=== PATIENT | female | born 1975 | race Caucasian/White ===

== ENCOUNTER 2017-07-22 15:49 | Emergency (ER) | payer OTHER, SELFPAY ==
--- NOTE | 2017-07-22 15:55 | XR_ITS ---
XR knee LT 3V HISTORY: Posttraumatic pain ITS.REASON: FELL AT HOME ORDERING PHYSICIAN: Sera Ortiz PATIENT AGE: 41 years COMPARISON: None FINDINGS: No fracture or dislocation. No lytic or blastic change. Normal mineralization. No significant arthritic changes evident. No other significant findings IMPRESSION: Negative Knee
--- NOTE | 2017-07-22 15:55 | XR_ITS ---
XR tibia fibula LT 2V CLINICAL INDICATION: Pain following injury ITS.REASON: FELL AT HOME ORDERING PHYSICIAN: Sera Ortiz PATIENT AGE: 41 years COMPARISON: None FINDINGS: Negative, no fracture or dislocation. IMPRESSION: Negative left tib-fib.
[2017-07-22 16:20] VITALS: BP 133/91; PULSE 74; RESP 20; TEMP 36.7; O2SAT 99; BMI 24.0
--- NOTE | 2017-07-22 16:26 | HMH.EDUTC ---
[facility] [place] Disposition Clinical Impression: Knee sprain Qualifiers: Encounter type: initial encounter Involved ligament of knee: other ligament Laterality: left Qualified Code(s): S83.8X2A - Sprain of other specified parts of left knee, initial encounter Contusion of leg Qualifiers: Encounter type: initial encounter Laterality: left Qualified Code(s): S80.12XA - Contusion of left lower leg, initial encounter Disposition: Home, Self-Care Condition on Discharge: Good Instructions: How To Perform RICE (Rest, Ice, Compress, Elevate), Contusion Additional Instructions: *weight bearing as tolerated *RICE, Rest the extremity, Ice 15-20 minutes 3-4 times daily, Compress- wear the brad wrap as discussed as much as possible to help reduce swelling and pain, Elevate the extremity when at rest *Rbad wrap is for support and help control swelling, use it except in the shower. Be sure that is not to tight but not to loose either *Elevate when resting *Ibuprofen 600-800mg every 6-8 hours as needed for pain an inflammation. If need something more can take Tylenol in between doses of Ibuprofen to help Immediately follow up for new or worsening of symptoms, or no noticeable improvement over the next 3-5 days Follow up with family doctor for referral to Orthopedics if warranted Return if needed Prescriptions: Ibuprofen [Ibuprofen 600mg Tab] 600 mg PO Q6H PRN #20 tab PRN Reason: Moderate Pain Referrals: Hermann Boyer APRN [Primary Care Provider] - Time of Disposition: 16:53 Medical Decision Making - Medical Records Medical records reviewed: Yes: I reviewed the patient's medical records. Vital Signs: 07/22/17 16:20 Temperature 98.1 F Temperature Source Temporal Artery Scan Pulse Rate [Right Radial] 74 Respiratory Rate 20 Blood Pressure [Right Arm] 133/91 Blood Pressure Mean [Right Arm] 105 Blood Pressure Source [Right Arm] Automatic Cuff Blood Pressure Position [Right Arm] Sitting 02 Sat by Pulse Oximetry 99 Oxygen Delivery Method Room Air Orders (Tests/Meds): ORDERS Category Date Time Status Knee XR left 3 views [XR knee LT 3V] Stat Exams 07/22/17 15:55 Taken Tibia/fibula XR left 2 views [XR tibia fibula LT 2V] Exams 07/22/17 15:55 Taken Stat - Radiology Data #1 Image Reviewed: Yes I have reviewed radiologist's interpretation, Yes I reviewed the patient's radiology image w/the ED provider Preliminary Findings: No Fracture Seen - Christiano Inquiry Pt receiving controlled substance: No Christiano was queried for this patient: No [facility] [place] HPI - General Stated complaint: AO 07/21/17 Fell inj to left knee Mode of Arrival: Family Vehicle Source of Information: Patient Limitations: No Limitations Description of Symptoms (Recalled from Triage Doc. by RN): PT STATES SHE FELL IN A HOLE AND INJURED HER LEFT KNEE. HEENT Symptoms (Recalled from RN notes): No Resp Symptoms (Recalled from RN notes): No Skin Symptoms (Recalled from RN notes): No MS Symptoms (Recalled from RN notes): Yes (LEFT KNEE) Functional Status (Recalled from RN notes): NA - History of Present Illness Provider Complaint: Patient state that yesterday she was out in the dog lot feeding the dog when she accidently stepped into a hole that the dog had dug on the ground and fell twisting her left leg now having pain in her left leg and knee States that she has not had any bruising just tenderness and pain that shoots up leg behind the knee - Related Data Previous Rx's Medication Instructions Recorded Ibuprofen [Ibuprofen 600mg Tab] 600 mg PO Q6H PRN #20 tab 07/22/17 Allergies Allergy/AdvReac Type Severity Reaction Status Date / Time Iodinated Contrast Media - Allergy Intermediate I-HIVES Verified 07/22/17 16:01 Oral and [IODINATED CONTRAST MEDIA - ORAL AND] iodine [IODINE] Allergy Mild Unverified 05/13/17 14:42 oxytocin [From Pitocin] Allergy Verified 07/22/17 16:19 - Worker's Comp Is this a Worker's Comp case?:
--- NOTE | 2017-07-22 16:38 | ED_ITS ---
[facility] [place] Disposition Clinical Impression: Knee sprain Qualifiers: Encounter type: initial encounter Involved ligament of knee: other ligament Laterality: left Qualified Code(s): S83.8X2A - Sprain of other specified parts of left knee, initial encounter Contusion of leg Qualifiers: Encounter type: initial encounter Laterality: left Qualified Code(s): S80.12XA - Contusion of left lower leg, initial encounter Disposition: Home, Self-Care Condition on Discharge: Good Instructions: How To Perform RICE (Rest, Ice, Compress, Elevate), Contusion Additional Instructions: *weight bearing as tolerated *RICE, Rest the extremity, Ice 15-20 minutes 3-4 times daily, Compress- wear the brad wrap as discussed as much as possible to help reduce swelling and pain, Elevate the extremity when at rest *Brad wrap is for support and help control swelling, use it except in the shower. Be sure that is not to tight but not to loose either *Elevate when resting *Ibuprofen 600-800mg every 6-8 hours as needed for pain an inflammation. If need something more can take Tylenol in between doses of Ibuprofen to help Immediately follow up for new or worsening of symptoms, or no noticeable improvement over the next 3-5 days Follow up with family doctor for referral to Orthopedics if warranted Return if needed Prescriptions: Ibuprofen [Ibuprofen 600mg Tab] 600 mg PO Q6H PRN #20 tab PRN Reason: Moderate Pain Referrals: Hermann Boyer APRN [Primary Care Provider] - Time of Disposition: 16:53 Medical Decision Making - Medical Records Medical records reviewed: Yes: I reviewed the patient's medical records. Vital Signs: 07/22/17 16:20 Temperature 98.1 F Temperature Source Temporal Artery Scan Pulse Rate [Right Radial] 74 Respiratory Rate 20 Blood Pressure [Right Arm] 133/91 Blood Pressure Mean [Right Arm] 105 Blood Pressure Source [Right Arm] Automatic Cuff Blood Pressure Position [Right Arm] Sitting 02 Sat by Pulse Oximetry 99 Oxygen Delivery Method Room Air Orders (Tests/Meds): ORDERS Category Date Time Status Knee XR left 3 views [XR knee LT 3V] Stat Exams 07/22/17 15:55 Taken Tibia/fibula XR left 2 views [XR tibia fibula LT 2V] Exams 07/22/17 15:55 Taken Stat - Radiology Data #1 Image Reviewed: Yes I have reviewed radiologist's interpretation, Yes I reviewed the patient's radiology image w/the ED provider Preliminary Findings: No Fracture Seen - Christiano Inquiry Pt receiving controlled substance: No Christiano was queried for this patient: No [facility] [place] HPI - General Stated complaint: AO 07/21/17 Fell inj to left knee Mode of Arrival: Family Vehicle Source of Information: Patient Limitations: No Limitations Description of Symptoms (Recalled from Triage Doc. by RN): PT STATES SHE FELL IN A HOLE AND INJURED HER LEFT KNEE. HEENT Symptoms (Recalled from RN notes): No Resp Symptoms (Recalled from RN notes): No Skin Symptoms (Recalled from RN notes): No MS Symptoms (Recalled from RN notes): Yes (LEFT KNEE) Functional Status (Recalled from RN notes): NA - History of Present Illness Provider Complaint: Patient state that yesterday she was out in the dog lot feeding the dog when she accidently stepped into a hole that the dog had dug on the ground and fell twisting her left leg now having pain in her left leg and knee States that she has not had any bruising just tenderness and pain that shoots up leg behi
[2017-07-22 16:55] VITALS: BP 130/86; PULSE 76; RESP 20; TEMP 36.9; O2SAT 100
== END 2017-07-22 16:56 | disposition home or self-care (01) ==
PROVIDERS: Emergency Provider Nurse Practitioner; Family Provider Nurse Practitioner Family; PCP Nurse Practitioner Family
DX: S83.92XA Sprain of unspecified site of left knee, initial encounter (principal); S80.12XA Contusion of left lower leg, initial encounter; W17.2XXA Fall into hole, initial encounter; Y93.K1 Activity, walking an animal; Y92.9 Unspecified place or not applicable; F17.210 Nicotine dependence, cigarettes, uncomplicated
CPT/HCPCS: 73562; 73590; 99202

== ENCOUNTER 2017-07-31 16:48 | Emergency (ER) | payer OTHER, SELFPAY ==
[2017-07-31 17:05] VITALS: BP 144/117; PULSE 83; RESP 18; TEMP 36.6; O2SAT 99; BMI 24.0
[2017-07-31 17:18] LABS: Apearance,Urine Clear (Clear); Color,Urine Yellow (Yellow); Glucose,Urine (UA) Negative (Negative); Ketones,Urine Negative (Negative); Protein,Urine Negative (Negative)
[2017-07-31 17:19] LABS: Bilirubin,Urine Negative (Negative); Blood, Urine Trace (Negative); UTC Leukocyte Esterase,Urine Negative (Negative); UTC Nitrate,Urine Negative (Negative); Urobilinogen,Urine 0.2 EU/dl (0.2)
--- NOTE | 2017-07-31 17:49 | HMH.EDUTC ---
[facility] [place] Disposition Clinical Impression: Right flank pain Hematuria Qualifiers: Hematuria type: unspecified type Qualified Code(s): R31.9 - Hematuria, unspecified Disposition: Still a Patient Condition on Discharge: Fair Time of Disposition: 17:57 (ER bed 9) Medical Decision Making Vital Signs: 07/31/17 17:05 Temperature 98 F Temperature Source Temporal Artery Scan Pulse Rate [Brachial] 83 Respiratory Rate 18 Blood Pressure [Right Arm] 144/117 Blood Pressure Mean [Right Arm] 126 Blood Pressure Source [Right Arm] Automatic Cuff Blood Pressure Position [Right Arm] Sitting 02 Sat by Pulse Oximetry 99 Oxygen Delivery Method Room Air - Lab Data Lab results reviewed: Yes: I reviewed the patient's lab results. Lab Results 07/31/17 17:08: Urine Color Yellow, Urine Appearance Clear, Urine pH 6.0, Ur Specific [place] 1.010, Urine Protein Negative, Urine Glucose (UA) Negative, Urine Ketones Negative, Urine Blood Trace, Urine Nitrate Negative, Urine Bilirubin Negative, Urine Urobilinogen 0.2, Ur Leukocyte Esterase Negative - Christiano Inquiry Pt receiving controlled substance: No - Reevaluation(s) Reevaluation #1: Discussed possible differentials and [facility] guidelines. Pt agreeable to transfer to ER to rule out kidney stone [facility] [place] HPI - General Stated complaint: pain right side Time Seen by Provider: 07/31/17 17:49 Mode of Arrival: Ambulatory Source of Information: Patient Limitations: No Limitations Description of Symptoms (Recalled from Triage Doc. by RN): FLANK PAIN RT SIDE SINCE 5 AM THAT GOES AROUND TO ABD HEENT Symptoms (Recalled from RN notes): No Resp Symptoms (Recalled from RN notes): No Skin Symptoms (Recalled from RN notes): No MS Symptoms (Recalled from RN notes): No Functional Status (Recalled from RN notes): NA - History of Present Illness Provider Complaint: c/o right flank pain in my kidney that woke her up at 5am this morning. Has tried to wait it out but pain worse, now 10/10, and radiating into abdomen. Denies hx of kidney stones. Hasn't taken or tried anything for symptoms. No fever - Related Data Home Medications Medication Instructions Recorded Confirmed Estradiol [Estradiol] 2 mg PO DAILY 07/31/17 07/31/17 Allergies Allergy/AdvReac Type Severity Reaction Status Date / Time Iodinated Contrast Media - Allergy Intermediate I-HIVES Verified 07/22/17 16:01 Oral and [IODINATED CONTRAST MEDIA - ORAL AND] iodine [IODINE] Allergy Mild Unverified 05/13/17 14:42 oxytocin [From Pitocin] Allergy Verified 07/22/17 16:19 - Worker's Comp Is this a Worker's Comp case?: No [place] History I have reviewed the patient's past medical history: Yes Medical History: Denies:: Cancer, Diabetes Mellitus Type 1, Diabetes Mellitus Type 2, Hypertension, Kidney Stones, MRSA Other Surgeries: Yes: Appendectomy, Hysterectomy-Total, Other (cholecystectomy, unknown bladder surgery) Amputation: No Fractures: No - Social History Smoking Status: Current every day smoker Tobacco Type: cigarettes Alcohol Intake: never - Psychiatric History Expresses thoughts of harming self/others: None Suicide Plan Description: No Plan ROS Obtained: Yes Systems reviewed as appropriate & no additional complaints - Constitutional Constitutional: Reports as per HPI, Denies body ache, Reports poor appetite - Cardiovascular Cardiovascular: Denies chest pain - Respiratory Respiratory: No dyspnea - Gastrointestinal Gastrointestingal: Reports: as per HPI, nausea. Denies: diarrhea, vomiting - Genitourinary Female Genitourinary: Denies abnormal vaginal bleeding, Denies dysuria, Denies hematuria, Denies urinary frequency, Denies urinary hesitancy, Denies urinary urgency, Denies vaginal discharge, Denies other (change urine characteristics) - Musculoskeletal Musculoskeletal: Reports as per HPI, Denies joint stiffness, Denies limited range of motion - Integumentary/Breasts Skin/Breast: Denie
[2017-07-31 18:02] VITALS: BP 128/93; PULSE 85; RESP 20; TEMP 36.6; O2SAT 97; BMI 24.9
--- NOTE | 2017-07-31 18:09 | CT_ITS ---
CT abdomen pelvis wo con CLINICAL INDICATION: Right flank pain ITS.REASON: possible kidney stone ORDERING PHYSICIAN: Kenan Osullivan PATIENT AGE: 41 years COMPARISON: 04/30/2017 TECHNIQUE: Axial images obtained with sagittal and coronal reformats. PROCEDURE: Oral Contrast: None IV Contrast: None . FINDINGS: Prior cholecystectomy. No focal liver lesion. Minimal prominence of common bile duct unchanged and may be a physiologic response to the previous cholecystectomy. Spleen, adrenal glands, and pancreas are unremarkable. No obstructing renal or ureteral calculi. There is a 2 mm nonobstructing stone in the mid polar region of the left kidney. Prior hysterectomy. Mild thickening of the hepatic flexure and transverse colon and ascending colon which may be due to nondistention. Colitis is an additional consideration. There is an oval isodensity in the left pelvic region along the superior lateral aspect the urinary bladder measuring approximately 17 mm. This could represent a bladder diverticulum versus an ovarian remnant cyst. IMPRESSION: 1. Thickening of the colon which could be due to colitis or nondistention. 2. Nonobstructing left renal calculus. 3. 1.7 cm isodensity left pelvic region which could be due to bladder diverticulum versus ovarian remnant cyst
[2017-07-31 18:30] LABS: Basophils % 0.3 % (0.1-2.0); Eosinophils # 0.2 K/mm3 (0.0-0.4); Eosinophils % 1.3 % (0.1-12.0); Hematocrit 48.2 % (37.0-47.0); Hemoglobin 16.1 g/dL (12.2-16.2); Lymphocytes # 3.4 K/mm3 (0.7-4.5); Lymphocytes % 25.8 K/mm3 (10-50); Mean Corpuscular HGB Conc 33.5 g/dL (31.8-35.4); Mean Corpuscular Hemoglobin 31.2 pg (27.0-31.2); Mean Corpuscular Volume 93.3 fl (81-99); Mean Platelet Volume 8.7 fl (7.4-10.4); Monocytes # 0.7 K/mm3 (0.1-1.0); Monocytes % 5.5 % (1.7-9.3); Neutrophils # 8.8 K/mm3 (1.8-7.8); Neutrophils % 67.2 % (37.0-80.0); Platelet Count 270 K/mm3 (142-424); Red Blood Count 5.17 M/mm3 (4.20-5.40); White Blood Count 13.1 K/mm3 (4.8-10.8)
--- NOTE | 2017-07-31 18:32 | HMH.EDUROGF ---
ED Disposition Clinical Impression: Right flank pain Disposition: Home, Self-Care Condition on Discharge: Good Instructions: DI for Low Back Pain Additional Instructions: Naproxenangela one to two days Prescriptions: Naproxen [EC-Naprosyn] 500 mg PO BID PRN #20 tablet.dr FARR Reason: Pain Per Pt ([facility] Use Only) Referrals: Hermann Boyer APRN [Primary Care Provider] - - Critical Care Critical Care Time: No Attestation: On 07/31/17, the high probability of a clinically significant, sudden or life threatening deterioration of the following system(s) required my full and direct attention, intervention and personal management. The time I documented below is in addition to time spent performing reported procedures but includes the following listed in this critical care notation. Medical Decision Making - Medical Records Medical records reviewed: Yes: I reviewed the patient's medical records. Vital Signs: 07/31/17 17:05 07/31/17 18:02 Temperature 98 F 97.9 F Temperature Source Temporal Artery Scan Oral Pulse Rate [Brachial] 83 85 Respiratory Rate 18 20 Blood Pressure [Right Arm] 144/117 128/93 Blood Pressure Mean [Right Arm] 126 104 Blood Pressure Source [Right Arm] Automatic Cuff Automatic Cuff Blood Pressure Position [Right Arm] Sitting Sitting 02 Sat by Pulse Oximetry 99 97 Oxygen Delivery Method Room Air Room Air - Lab Data Lab results reviewed: Yes: I reviewed the patient's lab results. Lab Results 07/31/17 17:08: Urine Color Yellow, Urine Appearance Clear, Urine pH 6.0, Ur Specific [place] 1.010, Urine Protein Negative, Urine Glucose (UA) Negative, Urine Ketones Negative, Urine Blood Trace, Urine Nitrate Negative, Urine Bilirubin Negative, Urine Urobilinogen 0.2, Ur Leukocyte Esterase Negative 07/31/17 18:10: WBC 13.1 H, RBC 5.17, Hgb 16.1, Hct 48.2 H, MCV 93.3, MCH 31.2, MCHC 33.5, RDW 12.0, Plt Count 270, MPV 8.7, Neut % (Auto) 67.2, Lymph % (Auto) 25.8, [place] % (Auto) 5.5, Eos % (Auto) 1.3, Baso % (Auto) 0.3, Neut # (Auto) 8.8 H, Lymph # (Auto) 3.4, [place] # (Auto) 0.7, Eos # (Auto) 0.2, Baso # (Auto) 0.0 07/31/17 18:10: Sodium 138, Potassium 3.7, Chloride 102, Carbon Dioxide 31, Anion Gap 8.7, BUN 7, Creatinine 0.83, Estimated Creat Clear 93, Estimated GFR 76, Est GFR ( Amer) 92, Glucose 92, Calcium 9.1, Total Bilirubin 0.5, AST 12 L, ALT 25, Alkaline Phosphatase 130 H, Total Protein 8.2, Albumin 3.9, Globulin 4.3 H, Albumin/Globulin Ratio 0.9 L Result diagrams: 07/31/17 18:10 07/31/17 18:10 Orders (Tests/Meds): ORDERS Category Date Time Status CT abdomen pelvis wo con Stat Cat Scan 07/31/17 18:09 Taken - CT Data CT Scan: Abdomen, Pelvis Time Received: 19:16 (neg acute) ED CT Reviewed: Yes: I have reviewed the patient's CT results - Christiano Inquiry Pt receiving controlled substance: No Female Urogenital HPI - General Chief complaint: PAIN Stated complaint: pain right side Time Seen by Provider: 07/31/17 17:49 Mode of Arrival: Ambulatory Source of Information: Patient Limitations: No Limitations Description of Symptoms (Recalled from ER Triage Doc. by RN): FLANK PAIN RT SIDE SINCE 5 AM THAT GOES AROUND TO ABD - History of Present Illness HPI Narrative: Reports positional pain with onset at 5:00 this morning, no hematuria urgency or frequency. No vomiting or diarrhea. She denies any abdominal pain. Sent over from urgent treatment center for further evaluation. Bowel or bladder function. MD Complaint: other (R flank pain) Onset (ago): hour(s) Radiation: non-radiating Severity: mild Duration: now resolved Exacerbating factors: none : no - Related Data Home Medications Medication Instructions Recorded Confirmed Estradiol [Estradiol] 2 mg PO DAILY 07/31/17 07/31/17 Previous Rx's Medication Instructions Recorded Naproxen [EC-Naprosyn] 500 mg PO BID PRN #20 tablet. 07/31/17 Allergies Allergy/AdvReac Type Severity Reaction
[2017-07-31 18:41] LABS: Alanine Aminotransferase 25 U/L (12-78); Albumin Level 3.9 gm/dL (3.4-5.0); Albumin/Globulin Ratio 0.9 (1.1-1.8); Alkaline Phosphatase 130 U/L (46-116); Anion Gap 8.7 mEq/L (5-15); Aspartate Amino Transferase 12 U/L (15-37); Bilirubin,Total 0.5 mg/dL (0.2-1.0); Blood Urea Nitrogen 7 mg/dL (7-18); Calcium 9.1 mg/dL (8.5-10.1); Carbon Dioxide 31 mmol/L (21.0-32.0); Chloride 102 mmol/L (98-107); Creatinine Clearance Estimated 93 mL/min (0-300); Creatinine,Serum 0.83 mg/dL (0.55-1.02); Estimated Glomerular Filt Rate 76 ml/min (>60); GFR (African American) 92 ML/MIN (>60); Globulin 4.3 gm/dl (1.3-3.2); Glucose 92 mg/dL (74-106); Potassium 3.7 mmoL/L (3.5-5.1); Sodium 138 mmol/L (136-145); Total Protein,Serum 8.2 gm/dL (6.4-8.2)
[2017-07-31 19:30] VITALS: BP 119/85; PULSE 68; RESP 20; TEMP 37; O2SAT 100
== END 2017-07-31 19:30 | disposition home or self-care (01) ==
LOC: UTC 16:51 → ER 17:59
PROVIDERS: Emergency Medicine; Emergency Provider Nurse Practitioner Family; Family Provider Nurse Practitioner Family; PCP Nurse Practitioner Family
DX: R10.31 Right lower quadrant pain (principal); F17.210 Nicotine dependence, cigarettes, uncomplicated; Z88.8 Allergy status to other drugs, medicaments and biological substances
CPT/HCPCS: 74176; 80053; 81003; 85025; 99283

== ENCOUNTER → 2017-08-08 14:46 | Outpatient (CLI) | payer OTHER, SELFPAY ==
[2017-08-08 15:03] LABS: Basophils % 0.4 % (0.1-2.0); Eosinophils # 0.1 K/mm3 (0.0-0.4); Eosinophils % 1.4 % (0.1-12.0); Hematocrit 42.2 % (37.0-47.0); Hemoglobin 14.1 g/dL (12.2-16.2); Lymphocytes % 34.3 K/mm3 (10-50); Mean Corpuscular HGB Conc 33.3 g/dL (31.8-35.4); Mean Corpuscular Hemoglobin 31.2 pg (27.0-31.2); Mean Corpuscular Volume 93.7 fl (81-99); Mean Platelet Volume 8.8 fl (7.4-10.4); Monocytes # 0.4 K/mm3 (0.1-1.0); Monocytes % 4.5 % (1.7-9.3); Neutrophils # 5.2 K/mm3 (1.8-7.8); Neutrophils % 59.4 % (37.0-80.0); Platelet Count 250 K/mm3 (142-424); Red Cell Distribution Width 12.1 % (11.5-17.5); White Blood Count 8.7 K/mm3 (4.8-10.8)
[2017-08-08 21:24] LABS: Alanine Aminotransferase 20 U/L (12-78); Albumin Level 3.4 gm/dL (3.4-5.0); Albumin/Globulin Ratio 0.9 (1.1-1.8); Alkaline Phosphatase 110 U/L (46-116); Anion Gap 9.7 mEq/L (5-15); Aspartate Amino Transferase 13 U/L (15-37); Bilirubin,Total 0.2 mg/dL (0.2-1.0); Blood Urea Nitrogen 11 mg/dL (7-18); Carbon Dioxide 29 mmol/L (21.0-32.0); Chloride 106 mmol/L (98-107); Creatinine,Serum 0.77 mg/dL (0.55-1.02); Estimated Glomerular Filt Rate 83 ml/min (>60); GFR (African American) 100 ML/MIN (>60); Globulin 3.9 gm/dl (1.3-3.2); Glucose 91 mg/dL (74-106); Potassium 3.7 mmoL/L (3.5-5.1); Sodium 141 mmol/L (136-145); T4 (Thyroxine) 7.8 ug/dl (4.7-13.3); Thyroid Stimulating Hormone 1.63 uIU/ml (0.358-3.740); Total Protein,Serum 7.3 gm/dL (6.4-8.2)
[2017-08-10 18:50] LABS: Vitamin B12 268 pg/mL (232-1245)
== END ==
PROVIDERS: PCP Nurse Practitioner Family; Visit Provider Nurse Practitioner Family
DX: R61 Generalized hyperhidrosis (principal)
CPT/HCPCS: 36415; 80053; 82607; 84436; 84443; 85025

== ENCOUNTER → 2017-08-22 10:33 | Outpatient (CLI) | payer OTHER, SELFPAY ==
[2017-08-22 11:06] LABS: Chol/HDL Ratio 6.3 (1-3.5); Cholesterol 240 mg/dL (140-200); HDL Cholesterol 38 mg/dL (29-89); LDL Cholesterol 151 mg/dL (0-130); Triglycerides 256 mg/dL (30-200); VLDL Cholesterol 51 mg/dL (0-40)
[2017-08-23 18:39] LABS: Vitamin D 25 Hydroxy 7.1 ng/mL (30.0-100.0)
[2017-08-26 15:38] LABS: H. pylori Breath Test Positive (Negative)
== END ==
PROVIDERS: Visit Provider Nurse Practitioner Family
DX: R61 Generalized hyperhidrosis (principal); R10.9 Unspecified abdominal pain
CPT/HCPCS: 36415; 80061; 82652; 83013

== ENCOUNTER → 2017-11-28 10:52 | Outpatient (CLI) | payer OTHER, SELFPAY ==
[2017-11-28 17:10] LABS: Basophils % 0.4 % (0.1-2.0); Eosinophils # 0.1 K/mm3 (0.0-0.4); Eosinophils % 1.6 % (0.1-12.0); Hemoglobin 14.8 g/dL (12.2-16.2); Lymphocytes % 35.4 K/mm3 (10-50); Mean Corpuscular HGB Conc 32.9 g/dL (31.8-35.4); Mean Corpuscular Hemoglobin 31.1 pg (27.0-31.2); Mean Corpuscular Volume 94.5 fl (81-99); Mean Platelet Volume 9.7 fl (7.4-10.4); Monocytes # 0.5 K/mm3 (0.1-1.0); Monocytes % 5.4 % (1.7-9.3); Neutrophils # 4.8 K/mm3 (1.8-7.8); Neutrophils % 57.1 % (37.0-80.0); Platelet Count 272 K/mm3 (142-424); Red Blood Count 4.76 M/mm3 (4.20-5.40); Red Cell Distribution Width 12.9 % (11.5-17.5); White Blood Count 8.3 K/mm3 (4.8-10.8)
[2017-11-28 18:53] LABS: Alanine Aminotransferase 25 U/L (12-78); Albumin Level 3.8 gm/dL (3.4-5.0); Albumin/Globulin Ratio 1.1 (1.1-1.8); Alkaline Phosphatase 135 U/L (46-116); Bilirubin,Total 0.5 mg/dL (0.2-1.0); Blood Urea Nitrogen 9 mg/dL (7-18); Calcium 9.6 mg/dL (8.5-10.1); Carbon Dioxide 29 mmol/L (21.0-32.0); Chloride 104 mmol/L (98-107); Chol/HDL Ratio 8.4 (1-3.5); Cholesterol 235 mg/dL (140-200); Creatinine,Serum 0.73 mg/dL (0.55-1.02); Estimated Glomerular Filt Rate 87 ml/min (>60); GFR (African American) 106 ML/MIN (>60); Globulin 3.5 gm/dl (1.3-3.2); HDL Cholesterol 28 mg/dL (29-89); Potassium 3.9 mmoL/L (3.5-5.1); T4 (Thyroxine) 8.4 ug/dl (4.7-13.3); Thyroid Stimulating Hormone 1.05 uIU/ml (0.358-3.740); Total Protein,Serum 7.3 gm/dL (6.4-8.2)
[2017-11-28 19:22] LABS: Anion Gap 8.9 mEq/L (5-15); Aspartate Amino Transferase 21 U/L (15-37); Sodium 138 mmol/L (136-145)
[2017-11-28 19:28] LABS: Glucose 97 mg/dL (74-106)
[2017-11-28 19:29] LABS: Triglycerides 538 mg/dL (30-200)
[2017-12-01 12:31] LABS: Vitamin D 25 Hydroxy 20.1 ng/mL (30.0-100.0)
== END ==
PROVIDERS: Visit Provider Nurse Practitioner Family
DX: E78.5 Hyperlipidemia, unspecified (principal); E55.9 Vitamin D deficiency, unspecified; R53.83 Other fatigue
CPT/HCPCS: 80053; 80061; 82652; 84436; 84443; 85025

== ENCOUNTER → 2018-03-20 15:03 | Outpatient (CLI) | payer OTHER, SELFPAY ==
--- NOTE | 2018-03-20 15:05 | MM_ITS ---
MM Dig screening mamm BI w/CAD CAD Screening COMPARISON: Digital mammograms with CAD 03/19/2017 and 02/17/2015 INDICATION: There is a history of breast cancer in patient's mother diagnosed after menopause. TECHNIQUE: Standard CC and MLO images were obtained. R2 CAD reviewed. FINDINGS: Scattered fibroglandular densities are seen throughout both breasts. Findings of the lateral symmetrical. There is no suspicious lesion and there are no suspicious microcalcifications. IMPRESSION: Fibrofatty parenchyma with no suspicious lesion seen BI-RADS Category: 1 Negative RECOMMENDED FOLLOW-UP: 1YR - 1 YEAR FOLLOW-UP (A letter has been sent to the patient regarding results of the study.)
== END ==
PROVIDERS: PCP Nurse Practitioner Family; Visit Provider Obstetrics & Gynecology
DX: Z12.31 Encounter for screening mammogram for malignant neoplasm of breast (principal)
CPT/HCPCS: 77067

== ENCOUNTER → 2018-07-03 13:11 | Outpatient (CLI) | payer OTHER, SELFPAY ==
[2018-07-03 13:49] LABS: Chol/HDL Ratio 3.9 (1-3.5); Cholesterol 173 mg/dL (140-200); HDL Cholesterol 44 mg/dL (29-89); LDL Cholesterol 90 mg/dL (0-130); Triglycerides 194 mg/dL (30-200); VLDL Cholesterol 39 mg/dL (0-40)
[2018-07-06 08:37] LABS: Vitamin D 25 Hydroxy 13.6 ng/mL (30.0-100.0)
== END ==
PROVIDERS: Visit Provider Nurse Practitioner Family
DX: E78.5 Hyperlipidemia, unspecified (principal); E55.9 Vitamin D deficiency, unspecified
CPT/HCPCS: 80061; 82652

== ENCOUNTER → 2018-07-07 13:50 | Outpatient (CLI) | payer OTHER, SELFPAY | PROVIDERS: Visit Provider Nurse Practitioner Family | DX: R06.02 Shortness of breath (principal) ==

== ENCOUNTER → 2018-07-07 14:50 | Outpatient (CLI) | payer OTHER, SELFPAY ==
--- NOTE | 2018-07-07 15:00 | XR_ITS ---
XR chest 2V HISTORY: ITS.REASON: SOB ORDERING PHYSICIAN: Christian Bullock PATIENT AGE: 42 years COMPARISON: 05/05/2018 FINDINGS: The cardiomediastinal silhouette and pulmonary vascularity are within normal limits. The lungs are clear without infiltrates, suspicious nodules, or pleural effusions. Calcified granuloma is present in the left apex No acute bony abnormalities. IMPRESSION: Negative chest, no acute finding
== END ==
PROVIDERS: PCP Emergency Medicine; Visit Provider Nurse Practitioner Family
DX: R06.02 Shortness of breath (principal)
CPT/HCPCS: 71046; 87086

== ENCOUNTER → 2018-07-10 07:06 | Outpatient (CLI) | payer OTHER, SELFPAY ==
--- NOTE | 2018-07-10 07:09 | CT_ITS ---
CT abdomen pelvis wo con CLINICAL INDICATION: Hematuria with right flank pain ITS.REASON: Right Flank Pain ORDERING PHYSICIAN: Christian Bullock PATIENT AGE: 42 years COMPARISON: 07/31/2017 TECHNIQUE: Axial images obtained with sagittal and coronal reformats. All CT scans at the facility use one or more dose reduction, viz: automated exposure control, ma/kV adjustment per patient size (including targeted exams where dose is matched to indication, i.e. head), or iterative reconstruction technique. PROCEDURE: Oral Contrast: None IV Contrast: None . FINDINGS: Lower thorax: No acute finding Postcholecystectomy change. The liver, spleen, adrenal glands and pancreas have an unremarkable unenhanced CT appearance. No obstructing renal or ureteral calculi are evident. There is a nonobstructing 2 mm stone in the lower pole the left kidney. No hydronephrosis. There is mild concentric thickening of the urinary bladder. This is nonspecific possibly due to nondistention or cystitis. Post hysterectomy changes. No evidence of appendicitis or diverticulitis. No intestinal obstruction or free air. There is a tiny umbilical hernia which contains fat. There is mild thickening versus nondistention of the descending colon. No acute bony findings. IMPRESSION: 1. Nonobstructing left renal calculus. No hydronephrosis or ureteral calculi. 2. Thickening of the urinary bladder wall which could be due to nondistention or cystitis. 3. Mild thickening of the descending colon which could be due to nondistention or colitis
== END ==
PROVIDERS: PCP Nurse Practitioner Family; Visit Provider Nurse Practitioner Family
DX: R10.9 Unspecified abdominal pain (principal)
CPT/HCPCS: 74176

== ENCOUNTER → 2018-07-14 13:03 | Outpatient (CLI) | payer OTHER, SELFPAY ==
[2018-07-14 14:30] VITALS: PULSE 55; PULSE 60
== END ==
PROVIDERS: PCP Nurse Practitioner Family; Visit Provider Nurse Practitioner Family
DX: R06.02 Shortness of breath (principal)
CPT/HCPCS: 94060; 94640

== ENCOUNTER → 2018-07-27 08:42 | Outpatient (CLI) | payer OTHER, SELFPAY ==
--- NOTE | 2018-07-27 08:44 | US_ITS ---
US abdomen complete HISTORY: ITS.REASON: R side abd pain ORDERING PHYSICIAN: Christian Bullock PATIENT AGE: 42 years COMPARISON: None FINDINGS: PANCREAS:Unremarkable. No obvious mass or abnormal fluid collection. No ductal dilatation LIVER:No focal liver lesions demonstrated. Homogeneous echogenicity. No intrahepatic biliary ductal dilatation evident RIGHT KIDNEY:Unremarkable. Normal size and echogenicity. No hydronephrosis LEFT KIDNEY:Unremarkable. No hydronephrosis. Normal size and echogenicity. GALLBLADDER:Post cholecystectomy. Common bile duct is within normal limits at 6 mm. AORTA:No evidence of aneurysmal dilatation. SPLEEN:Unremarkable. Normal size and echogenicity ASCITES:None demonstrated. IMPRESSION: Prior cholecystectomy otherwise negative abdominal ultrasound
== END ==
PROVIDERS: PCP Nurse Practitioner Family; Visit Provider Nurse Practitioner Family
DX: R10.9 Unspecified abdominal pain (principal)
CPT/HCPCS: 76700

== ENCOUNTER → 2018-11-04 17:50 | Outpatient (CLI) | payer OTHER, SELFPAY ==
[2018-11-06 17:52] LABS: Vitamin D 25 Hydroxy 18.8 ng/mL (30.0-100.0)
== END ==
PROVIDERS: Visit Provider Nurse Practitioner Family
DX: E55.9 Vitamin D deficiency, unspecified (principal)
CPT/HCPCS: 82652

== ENCOUNTER → 2018-12-14 14:49 | Outpatient (CLI) | payer OTHER, SELFPAY ==
[2018-12-14 15:06] LABS: Basophils % 0.3 % (0.1-2.0); Eosinophils # 0.2 K/mm3 (0.0-0.4); Eosinophils % 1.9 % (0.1-12.0); Hematocrit 39.9 % (37.0-47.0); Hemoglobin 13.3 g/dL (12.2-16.2); Lymphocytes # 2.6 K/mm3 (0.7-4.5); Lymphocytes % 32.9 % (10-50); Mean Corpuscular HGB Conc 33.3 g/dL (31.8-35.4); Mean Corpuscular Hemoglobin 29.9 pg (27.0-31.2); Mean Corpuscular Volume 89.6 fl (81-99); Mean Platelet Volume 8.8 fl (7.4-10.4); Monocytes # 0.4 K/mm3 (0.1-1.0); Monocytes % 4.5 % (1.7-9.3); Neutrophils # 4.8 K/mm3 (1.8-7.8); Neutrophils % 60.3 % (37.0-80.0); Platelet Count 237 K/mm3 (142-424); Red Blood Count 4.45 M/mm3 (4.20-5.40); Red Cell Distribution Width 12.7 % (11.5-17.5)
[2018-12-14 16:23] LABS: Anion Gap 10.6 mEq/L (5-15); Blood Urea Nitrogen 7 mg/dL (7-18); Calcium 8.9 mg/dL (8.5-10.1); Carbon Dioxide 30 mmol/L (21.0-32.0); Chloride 104 mmol/L (98-107); Creatinine,Serum 0.84 mg/dL (0.55-1.02); Estimated Glomerular Filt Rate 74 ml/min (>60); GFR (African American) 90 ML/MIN (>60); Glucose 94 mg/dL (74-106); Potassium 3.6 mmoL/L (3.5-5.1); Sodium 141 mmol/L (136-145)
== END ==
PROVIDERS: Visit Provider Otolaryngology
DX: Z01.818 Encounter for other preprocedural examination (principal); R13.10 Dysphagia, unspecified
CPT/HCPCS: 36415; 80048; 85025; 93005

== ENCOUNTER → 2019-01-08 17:13 | Outpatient (CLI) | payer OTHER, SELFPAY ==
[2019-01-08 18:25] LABS: Basophils % 0.3 % (0.1-2.0); Eosinophils # 0.1 K/mm3 (0.0-0.4); Eosinophils % 1.2 % (0.1-12.0); Hematocrit 40.6 % (37.0-47.0); Hemoglobin 13.6 g/dL (12.2-16.2); Lymphocytes # 2.8 K/mm3 (0.7-4.5); Mean Corpuscular HGB Conc 33.4 g/dL (31.8-35.4); Mean Corpuscular Hemoglobin 31.2 pg (27.0-31.2); Mean Corpuscular Volume 93.5 fl (81-99); Mean Platelet Volume 9.3 fl (7.4-10.4); Monocytes # 0.4 K/mm3 (0.1-1.0); Monocytes % 4.3 % (1.7-9.3); Neutrophils # 5.6 K/mm3 (1.8-7.8); Neutrophils % 63.2 % (37.0-80.0); Platelet Count 279 K/mm3 (142-424); Red Blood Count 4.35 M/mm3 (4.20-5.40); Red Cell Distribution Width 12.8 % (11.5-17.5); White Blood Count 8.9 K/mm3 (4.8-10.8)
[2019-01-08 18:51] LABS: Alanine Aminotransferase 20 U/L (12-78); Albumin Level 3.4 gm/dL (3.4-5.0); Alkaline Phosphatase 96 U/L (46-116); Anion Gap 14.1 mEq/L (5-15); Aspartate Amino Transferase 9 U/L (15-37); Bilirubin,Total 0.4 mg/dL (0.2-1.0); Blood Urea Nitrogen 8 mg/dL (7-18); Calcium 9.1 mg/dL (8.5-10.1); Carbon Dioxide 26 mmol/L (21.0-32.0); Chloride 105 mmol/L (98-107); Chol/HDL Ratio 8.5 (1-3.5); Cholesterol 220 mg/dL (140-200); Creatinine,Serum 0.84 mg/dL (0.55-1.02); Estimated Glomerular Filt Rate 74 ml/min (>60); Free T4 (Free Thyroxine) 0.93 ng/dl (0.76-1.46); GFR (African American) 90 ML/MIN (>60); Globulin 3.4 gm/dl (1.3-3.2); Glucose 99 mg/dL (74-106); HDL Cholesterol 26 mg/dL (29-89); Potassium 3.1 mmoL/L (3.5-5.1); Sodium 142 mmol/L (136-145); Thyroid Stimulating Hormone 1.19 uIU/ml (0.358-3.740); Total Protein,Serum 6.8 gm/dL (6.4-8.2)
[2019-01-08 18:52] LABS: Triglycerides 481 mg/dL (30-200)
[2019-01-08 20:15] LABS: Hemoglobin A1C 5.7 % (0.0-7.0)
[2019-01-10 16:37] LABS: Thyroid Peroxidase Antibodies 16 IU/mL (0-34)
[2019-01-11 10:26] LABS: Vitamin D 25 Hydroxy 15.4 ng/mL (30.0-100.0)
== END ==
PROVIDERS: Visit Provider Nurse Practitioner Family
DX: E11.9 Type 2 diabetes mellitus without complications (principal); E55.9 Vitamin D deficiency, unspecified; E78.5 Hyperlipidemia, unspecified; R61 Generalized hyperhidrosis; R68.89 Other general symptoms and signs; R53.83 Other fatigue; D72.829 Elevated white blood cell count, unspecified; E03.9 Hypothyroidism, unspecified
CPT/HCPCS: 80053; 80061; 82652; 83036; 84439; 84443; 85025; 86376

== ENCOUNTER → 2019-01-19 07:32 | Outpatient (CLI) | payer OTHER, SELFPAY ==
[2019-01-19 09:04] LABS: Blood Urea Nitrogen 10 mg/dL (7-18); Calcium 9.2 mg/dL (8.5-10.1); Carbon Dioxide 28 mmol/L (21.0-32.0); Chloride 103 mmol/L (98-107); Creatinine,Serum 0.83 mg/dL (0.55-1.02); Estimated Glomerular Filt Rate 75 ml/min (>60); GFR (African American) 91 ML/MIN (>60); Glucose 108 mg/dL (74-106); Sodium 141 mmol/L (136-145)
== END ==
PROVIDERS: Visit Provider Nurse Practitioner Family
DX: E87.6 Hypokalemia (principal)
CPT/HCPCS: 36415; 80048

== ENCOUNTER → 2019-03-26 08:10 | Outpatient (CLI) | payer OTHER, SELFPAY ==
--- NOTE | 2019-03-26 08:12 | MM_ITS ---
PROCEDURE: MM DIG SCREENING MAMM BI W/CAD CLINICAL INDICATION: screening There is a history of breast cancer patient's mother diagnosed after menopause. COMPARISON: [facility] DIG MAMM-SCREEN EMANUEL from 02/17/2015 [facility] DIG MAMM-SCREEN [facility]UEL W/CAD from 03/19/2017 [facility] MM Dig screening mamm BI w/CAD from 03/20/2018 TECHNIQUE: Standard CC and MLO images were obtained. R2 CAD reviewed. FINDINGS: Mild to moderate scattered fibroglandular densities are seen throughout both breasts. There is a stable low-lying node left axilla. There is no suspicious lesion and no suspicious microcalcifications. IMPRESSION: Fibrofatty parenchyma with no suspicious lesions seen BI-RAD Category: 1 Negative FOLLOW-UP: 1YR 1 Year Follow-up (A letter has been sent to the patient regarding results of the study.) Dictated by: Dr. Fercho Bentley MD 03/29/2019 09:[address] Fercho Bentley MD in [place] 03/29/2019 09:47
== END ==
PROVIDERS: PCP Nurse Practitioner Family; Visit Provider Obstetrics & Gynecology
DX: Z12.31 Encounter for screening mammogram for malignant neoplasm of breast (principal)
CPT/HCPCS: 77067

== ENCOUNTER → 2019-03-31 16:57 | Outpatient (CLI) | payer OTHER, SELFPAY ==
[2019-03-31 17:39] LABS: Basophils % 0.4 % (0.1-2.0); Eosinophils # 0.1 K/mm3 (0.0-0.4); Eosinophils % 1.1 % (0.1-12.0); Hemoglobin 14.2 g/dL (12.2-16.2); Lymphocytes # 3.2 K/mm3 (0.7-4.5); Lymphocytes % 36.4 % (10-50); Mean Corpuscular HGB Conc 33.1 g/dL (31.8-35.4); Mean Corpuscular Hemoglobin 32.3 pg (27.0-31.2); Mean Corpuscular Volume 97.8 fl (81-99); Mean Platelet Volume 8.9 fl (7.4-10.4); Monocytes # 0.4 K/mm3 (0.1-1.0); Monocytes % 4.3 % (1.7-9.3); Neutrophils % 57.7 % (37.0-80.0); Platelet Count 251 K/mm3 (142-424); Red Cell Distribution Width 12.6 % (11.5-17.5); White Blood Count 8.6 K/mm3 (4.8-10.8)
[2019-03-31 18:56] LABS: Alanine Aminotransferase 19 U/L (12-78); Albumin Level 3.6 gm/dL (3.4-5.0); Albumin/Globulin Ratio 1.1 (1.1-1.8); Alkaline Phosphatase 95 U/L (46-116); Anion Gap 12.5 mEq/L (5-15); Bilirubin,Total 0.3 mg/dL (0.2-1.0); Blood Urea Nitrogen 6 mg/dL (7-18); Calcium 9.2 mg/dL (8.5-10.1); Carbon Dioxide 25 mmol/L (21.0-32.0); Chloride 104 mmol/L (98-107); Creatinine,Serum 0.83 mg/dL (0.55-1.02); Estimated Glomerular Filt Rate 75 ml/min (>60); GFR (African American) 91 ML/MIN (>60); Globulin 3.3 gm/dl (1.3-3.2); Glucose 130 mg/dL (74-106); Sodium 138 mmol/L (136-145); Total Protein,Serum 6.9 gm/dL (6.4-8.2)
[2019-03-31 18:57] LABS: Aspartate Amino Transferase 15 U/L (15-37); Potassium 3.5 mmoL/L (3.5-5.1)
== END ==
PROVIDERS: Visit Provider Nurse Practitioner Family
DX: R35.0 Frequency of micturition (principal); R31.9 Hematuria, unspecified
CPT/HCPCS: 36415; 80053; 85025

== ENCOUNTER → 2019-04-02 08:29 | Outpatient (CLI) | payer OTHER, SELFPAY ==
[2019-04-02 09:14] LABS: Creatinine,Serum 0.74 mg/dL (0.55-1.02)
[2019-04-02 09:30] LABS: Creatinine,Urine Random 45 mg/dL (20-320)
[2019-04-02 09:37] LABS: Collection Time,Urine 24 hours; Creatinine 24 Hour,Urine 675 mg/24hr (630-2500); Creatinine Clearance Urine 63.3 mL/min (25-115); Total Volume,Urine 1500 mL (600-1600)
== END ==
PROVIDERS: Visit Provider Nurse Practitioner Family
DX: R31.9 Hematuria, unspecified (principal); R35.0 Frequency of micturition
CPT/HCPCS: 36415; 82575

== ENCOUNTER → 2019-07-22 15:57 | Outpatient (CLI) | payer OTHER, SELFPAY ==
[2019-07-22 16:52] LABS: Basophils # 0.1 K/mm3 (0-0.2); Basophils % 0.5 % (0.1-2.0); Eosinophils # 0.1 K/mm3 (0.0-0.4); Eosinophils % 1.4 % (0.1-12.0); Hematocrit 40.8 % (37.0-47.0); Lymphocytes # 3.2 K/mm3 (0.7-4.5); Lymphocytes % 33.7 % (10-50); Mean Corpuscular HGB Conc 34.3 g/dL (31.8-35.4); Mean Corpuscular Hemoglobin 31.5 pg (27.0-31.2); Mean Corpuscular Volume 91.8 fl (81-99); Mean Platelet Volume 8.5 fl (7.4-10.4); Monocytes # 0.4 K/mm3 (0.1-1.0); Monocytes % 4.3 % (1.7-9.3); Neutrophils # 5.8 K/mm3 (1.8-7.8); Neutrophils % 60.2 % (37.0-80.0); Platelet Count 277 K/mm3 (142-424); Red Blood Count 4.44 M/mm3 (4.20-5.40); Red Cell Distribution Width 12.5 % (11.5-17.5); White Blood Count 9.6 K/mm3 (4.8-10.8)
[2019-07-22 17:44] LABS: Alanine Aminotransferase 14 U/L (12-78); Albumin Level 4.3 g/dl (3.5-5.0); Albumin/Globulin Ratio 1.5 (1.1-1.8); Alkaline Phosphatase 88 U/L (38-126); Anion Gap 9.2 mEq/L (5-15); Aspartate Amino Transferase 21 U/L (14-36); Bilirubin,Total 0.5 mg/dl (0.2-1.3); Blood Urea Nitrogen 10 mg/dl (7-17); Carbon Dioxide 30 mmol/L (22.0-30.0); Chloride 103 mmol/L (98-107); Chol/HDL Ratio 8.1 (1-3.5); Cholesterol 234 mg/dl (140-200); Estimated Glomerular Filt Rate 91 ml/min (>60); GFR (African American) 111 ML/MIN (>60); Globulin 2.8 g/dL (1.3-3.2); Glucose 90 mg/dl (74-100); HDL Cholesterol 29 mg/dl (40-60); Potassium 4.2 mmoL/L (3.5-5.1); Sodium 138 mmol/L (136-145); Total Protein,Serum 7.1 g/dl (6.3-8.2)
[2019-07-22 17:45] LABS: Triglycerides 436 mg/dl (30-150)
[2019-07-24 08:31] LABS: Vitamin D 25 Hydroxy 9.1 ng/mL (30.0-100.0)
== END ==
PROVIDERS: Visit Provider Nurse Practitioner Family
DX: E55.9 Vitamin D deficiency, unspecified (principal); E78.5 Hyperlipidemia, unspecified
CPT/HCPCS: 36415; 80053; 80061; 82652; 85025

== ENCOUNTER → 2019-07-26 16:50 | Outpatient (CLI) | payer OTHER, SELFPAY ==
[2019-07-26 20:44] LABS: Hemoglobin A1C 5.6 % (4.0-6.0)
== END ==
PROVIDERS: Visit Provider Nurse Practitioner Family
DX: E78.2 Mixed hyperlipidemia (principal)
CPT/HCPCS: 36415; 83036

== ENCOUNTER → 2019-07-27 16:39 | Outpatient (CLI) | payer OTHER, SELFPAY ==
[2019-07-29 16:11] LABS: Calcium, Ionized 5.4 mg/dL (4.5-5.6)
[2019-07-30 08:57] LABS: Parathyroid Hormone Intact 46 pg/mL (15-65)
== END ==
PROVIDERS: Visit Provider Physician Assistant
DX: E55.9 Vitamin D deficiency, unspecified (principal)
CPT/HCPCS: 36415; 82330; 83970

== ENCOUNTER → 2019-09-29 10:15 | Outpatient (CLI) | payer OTHER, SELFPAY ==
[2019-09-29 08:54] VITALS: BMI 25.5
[2019-09-30 15:10] LABS: Covid-19 Nasal PCR Sendout Lex NOT DETECTED
== END ==
PROVIDERS: Visit Provider Internal Medicine Gastroenterology
DX: Z03.818 Encounter for observation for suspected exposure to other biological agents ruled out (principal)
CPT/HCPCS: U0003

== ENCOUNTER 2019-10-01 09:34 | Day surgery (SDC) | payer OTHER, SELFPAY ==
--- NOTE | 2019-09-28 11:30 | SUR.PREOP ---
09/28/19--PHONE CALL MADE TO PATIENT. PATIENT UNDERSTANDS THAT LAB WORK AND COVID TESTING NEEDS TO BE COMPLETED @ 1000 ON 09/29/19. PATIENT UNDERSTANDS IF LAB WORK AND COVID-19 TESTS ARE NOT COMPLETED BY 12PM ON THAT DATE, THE SURGERY SCHEDULED WILL BE CANCELLED AND RESCHEDULED FOR ANOTHER TIME.
[2019-10-01] VITALS (7 sets, daily range): BP systolic 109–155; BP diastolic 69–93; PULSE 59–70; RESP 16–18; TEMP 36.2–37; O2SAT 95–99; BMI 25.5
--- NOTE | 2019-10-01 11:36 | P.PN_ITS ---
[facility] Anesthesia Checklist - Structural Data Admitted From: Home Planned Operative Procedure/s: egd Consent for Planned Operative Procedure(s) Verified: Yes - Additional verifications Anesthesia Reactions: Yes (hard to wake up) Hx Blood Transfusions: No - Airway Assessment C-Spine Mobility Assessed: Yes TMJ Mobility Assessed: Yes Dentition: Poor Dentition - Neurological Assessment Level of Consciousness: Awake, Alert, Appropriate - Anesthesia Plan Anesthesia Risk discussed: Yes ASA Class: III Anesthesia Type: MAC [facility] History I have reviewed the patient's past medical history: Yes Medical History: Reports:: Asthma, Cancer (ovarian cancer), Hyperlipidemia, Hypertension Denies:: Chronic Obstructive Pulmonary Disease (COPD), Diabetes Mellitus Type 1, Diabetes Mellitus Type 2, Internal Pacemaker, Kidney Stones, MRSA, Seizures *Have you ever received a pneumonia vaccine?: No *Have you received a flu vaccine this season?: No Anesthesia experience/problems:: none Other Surgeries: Yes: Appendectomy, Cholecystectomy, , EGD, Hysterectomy-Total, Hysterectomy-Partial, Other. No: Pacemaker Amputation: No Fractures: No - *Social History Educational Level: Attended High School Smoking Status: Current every day smoker Tobacco Type: cigarettes # Packs/Day (cigarettes): 2 Alcohol Intake: never Alcohol Intake Frequency:: other Substance Use Type: denies use *Occupational Status:: unemployed Housing: house Household Members: spouse, family *Travel in the last 8 weeks: None Family Hx:: Cancer, Diabetes, Heart Attack, Kidney Disease
--- NOTE | 2019-10-01 11:50 | P.PCN_ITS ---
[facility] Procedure Note Procedure Note:: Upper Endoscopy Procedure Report: Esophagogastroduodenoscopy with cold biopsies Endoscopost: Coy Mcfarlane II, MD Referring Physician: Brenna COONEY Date of Procedure: October 01, 2019 Equipment: Olympus GIF 180 standard upper endoscope Sedation: MAC sedation Indications: Mrs. Holden is a 43-year-old female with abdominal pain and dyspepsia. She has had left lower quadrant abdominal pain, bloating and diarrhea. She has had the diarrhea since ovarian surgery (oophorectomy and hysterectomy) 3 years ago. She also had cholecystectomy 3 years ago. Her colonoscopy in May 2019 revealed a single polyp (tubular adenoma) which was removed. Biopsies of the colon were normal. She was placed on buspirone and probiotic. Her abdominal pain has resolved. However, she continues to have the bloating, diarrhea and loose watery stools which are dark yellow and sometimes greenish. She has had burning in the epigastrium that has worsened over the last couple of weeks. She does have obstipation/incomplete defecation. She reports no melena with her bowel movements but does note some mucus. She has had some occasional dysphagia. She did have partial laryngectomy with previous removal of a portion of the voice box. She has never had EGD. Procedure: Prior to the procedure, a history and physical exam was performed, and patient's medications and allergies were reviewed. The risks, benefits and alternatives of the sedation and procedure were discussed with the patient. All questions were answered and informed consent was obtained. The patient was brought to the procedure room. Patient identification and proposed procedure were verified by the physician and the nurse. The patient was placed in a left lateral decubitus position and the scope was passed under direct vision. Throughout the procedure, the patient's blood pressure, pulse, and oxygen saturations were monitored continuously. The upper GI endoscopy was accomplished without difficulty. The patient tolerated the procedure well. Findings: The scope was passed directly into the upper esophagus and advanced t o the third portion of the duodenum. The post bulbar duodenum and duodenal bulb were normal with normal mucosa and conniventes. Biopsies were taken from the post bulbar duodenum to rule out celiac disease. The scope was withdrawn through a normal duodenal bulb and pylorus into the stomach. There was bile reflux with linear reactive gastropathy of the antrum. There was some mild chronic gastritis of the body and fundus and biopsies were obtained to rule out H. pylori. Upon retroflexion there was a very small sliding hiatal hernia (1 to 2 cm). The scope was then withdrawn into the esophagus. There was nonerosive GERD but some serrated Z line at the distal esophagus. There was no evidence of stricturing, reflux esophagitis or Snider's. The remainder of the esophageal mucosa was normal. Impression: 1. Bile reflux with linear reactive gastropathy and some chronic gastritis 2. Nonerosive GERD with very small sliding hiatal hernia Plan: I will follow-up the biopsies. We will discuss additional dietary measures and treatment options. I would continue the Colestid for her diarrhea. We will discuss additional treatment options after sucrose breath testing.
== END 2019-10-01 12:47 | disposition home or self-care (01) ==
LOC: OUTP 09:35
PROVIDERS: PCP Nurse Practitioner Family; Visit Provider Internal Medicine Gastroenterology
PROC: 0DJ08ZZ Inspection of Upper Intestinal Tract, Via Natural or Artificial Opening Endoscopic (ICD-10-PCS; CPT 43235; principal; 2019-10-01 10:30)
DX: K29.50 Unspecified chronic gastritis without bleeding (principal); K44.9 Diaphragmatic hernia without obstruction or gangrene; R10.32 Left lower quadrant pain
CPT/HCPCS: 43239

== ENCOUNTER → 2019-10-06 15:22 | Outpatient (CLI) | payer OTHER, SELFPAY | PROVIDERS: Visit Provider Nurse Practitioner Family | DX: L72.9 Follicular cyst of the skin and subcutaneous tissue, unspecified (principal) | CPT/HCPCS: 87070; 87077; 87186; 87205 ==

== ENCOUNTER → 2019-11-02 15:07 | Outpatient (CLI) | payer OTHER, SELFPAY ==
--- NOTE | 2019-11-02 15:15 | XR_ITS ---
PROCEDURE: XR SHOULDER RT MIN 2V CLINICAL INDICATION: right shoulder pain COMPARISON: [id number] XR shoulder LT min 2V from 09/03/2018 FINDINGS: No fracture, dislocation, lytic change, or blastic change evident. No significant degenerative change IMPRESSION: No acute findings. Dictated by: Zhou Messina MD 11/02/2019 15:49 Electronically signed by Zhou Messina MD in [place] 11/02/2019 15:49
--- NOTE | 2019-11-02 15:15 | XR_ITS ---
PROCEDURE: XR CERVICAL SPINE 4V CLINICAL INDICATION: Right shoulder pain Neck pain COMPARISON: No exams were available for comparison FINDINGS: There is slight reversal of the lower cervical lordosis with degenerative disc disease at C6-C7 with small anterior osteophytes at C5-C6 and C6-C7. There is mild foraminal narrowing on the right at C6-C7 and on the left at C6-C7. No fracture or dislocation. No lytic or blastic change. No evidence of cervical rib. IMPRESSION: Reversal of lordosis with degenerative disc disease at C6-C7 and mild foraminal narrowing bilaterally at C6-C7 Dictated by: Zhou Messina MD 11/02/2019 15:51 Electronically signed by Zhou Messina MD in [facility] 11/02/2019 15:51
== END ==
PROVIDERS: PCP Nurse Practitioner Family; Visit Provider Physician Assistant
DX: M25.511 Pain in right shoulder (principal); M54.2 Cervicalgia
CPT/HCPCS: 72050; 73030

== ENCOUNTER → 2020-01-03 10:15 | Outpatient (POV) | payer OTHER, SELFPAY | PROVIDERS: Visit Provider Nurse Practitioner Family | DX: Z00.00 Encounter for general adult medical examination without abnormal findings (principal) ==

== ENCOUNTER → 2020-01-19 19:13 | Outpatient (CLI) | payer OTHER, SELFPAY ==
[2020-01-19 19:29] LABS: Basophils % 0.4 % (0.1-2.0); Eosinophils # 0.1 K/mm3 (0.0-0.4); Eosinophils % 1.4 % (0.1-12.0); Hematocrit 42.3 % (37.0-47.0); Lymphocytes % 29.7 % (10-50); Mean Corpuscular HGB Conc 35.6 g/dL (31.8-35.4); Mean Corpuscular Hemoglobin 32.6 pg (27.0-31.2); Mean Corpuscular Volume 91.8 fl (81-99); Mean Platelet Volume 9.7 fl (7.4-10.4); Monocytes # 0.5 K/mm3 (0.1-1.0); Monocytes % 4.4 % (1.7-9.3); Neutrophils # 6.6 K/mm3 (1.8-7.8); Neutrophils % 64.1 % (37.0-80.0); Platelet Count 254 K/mm3 (142-424); Red Cell Distribution Width 12.6 % (11.5-17.5); White Blood Count 10.2 K/mm3 (4.8-10.8)
[2020-01-19 20:02] LABS: Alanine Aminotransferase 23 U/L (12-78); Albumin/Globulin Ratio 1.3 (1.1-1.8); Alkaline Phosphatase 111 U/L (38-126); Anion Gap 13.6 mEq/L (5-15); Aspartate Amino Transferase 30 U/L (14-36); Bilirubin,Total 0.7 mg/dl (0.2-1.3); Blood Urea Nitrogen 13 mg/dl (7-17); Calcium 9.8 mg/dl (8.4-10.2); Carbon Dioxide 25 mmol/L (22.0-30.0); Chloride 104 mmol/L (98-107); Chol/HDL Ratio 9.1 (1-3.5); Cholesterol 282 mg/dl (140-200); Estimated Glomerular Filt Rate 91 ml/min (>60); GFR (African American) 110 ML/MIN (>60); Glucose 97 mg/dl (74-100); HDL Cholesterol 31 mg/dl (40-60); Potassium 3.6 mmoL/L (3.5-5.1); Sodium 139 mmol/L (136-145)
[2020-01-19 20:13] LABS: Direct LDL Cholesterol 137.45 mg/dL (100-129)
[2020-01-19 20:17] LABS: T4 (Thyroxine) 7.7 ug/dl (5.53-11.0)
[2020-01-19 20:18] LABS: 25-OH Vitamin D, Total 19.9 ng/mL (30-100)
[2020-01-19 20:31] LABS: Thyroid Stimulating Hormone 1.16 uIU/mL (0.465-4.68)
[2020-01-19 22:18] LABS: Triglycerides 583 mg/dl (30-150)
== END ==
PROVIDERS: Visit Provider Nurse Practitioner Family
DX: E78.5 Hyperlipidemia, unspecified (principal); E55.9 Vitamin D deficiency, unspecified; Z79.899 Other long term (current) drug therapy
CPT/HCPCS: 80053; 80061; 82306; 84436; 84443; 85025

== ENCOUNTER 2020-01-25 16:41 | Emergency (ER) | payer OTHER, SELFPAY ==
[2020-01-25 16:52] VITALS: BP 133/89; PULSE 70; RESP 18; TEMP 36.7; O2SAT 98; BMI 26.9
--- NOTE | 2020-01-25 16:55 | XR_ITS ---
PROCEDURE: XR KNEE LT 3V CLINICAL INDICATION: PAIN AND SWELLING COMPARISON: CR [id number] XR knee LT 3V from 07/22/2017 FINDINGS: No fracture or dislocation. No lytic or blastic change. There is normal mineralization. The joint spaces are well-preserved. No significant degenerative/arthritic changes. No erosive changes evident. Other findings:Increased density in the suprapatellar region suggesting knee joint effusion IMPRESSION: Suprapatellar effusion otherwise negative Dictated by: Zhou Messina MD 01/25/2020 22:03 Zhou Messina MD in [place] 01/25/2020 22:03
[2020-01-25 17:03] VITALS: BP 133/89; PULSE 70; RESP 18; TEMP 36.7; O2SAT 98; BMI 26.8
--- NOTE | 2020-01-25 17:22 | HMH.EDUTC ---
[facility] Clinical Impression: Swollen L knee Disposition: Home, Self-Care Condition on Discharge: Good Instructions: How To Perform RICE (Rest, Ice, Compress, Elevate), DI for Knee Effusion, DI for Knee Pain Additional Instructions: *weight bearing as tolerated *RICE, Rest the extremity, Ice 15-20 minutes 3-4 times daily, Compress- wear the brad wrap as discussed as much as possible to help reduce swelling and pain, Elevate the extremity when at rest *Brad wrap/Knee immobilizer is for support and help control swelling, use it except in the shower. Be sure that is not to tight but not to loose either *Elevate when resting *Ibuprofen every 6-8 hours as needed for pain an inflammation. If need something more can take Tylenol in between doses of Ibuprofen to help Immediately follow up with your family doctor for new or worsening of symptoms, or no noticeable improvement over the next 3-5 days Follow up with Orthopedics if no improvement or any worsening of symptoms Return if needed Prescriptions: Naproxen [Naproxen 500mg tab] 500 mg PO BID PRN #20 tab PRN Reason: Moderate Pain Transmission Status: Pending to [facility] #[id number] Referrals: Hermann Boyer APRN [Primary Care Provider] - As needed Priya Chandler MD [Physician] - As needed (Call office and make appointment) Time of Disposition: 17:29 Medical Decision Making - Christiano Inquiry Pt receiving controlled substance: No Christiano was queried for this patient: No Vital Signs: 01/25/20 16:52 01/25/20 17:03 Temperature 98.1 F 98.1 F Temperature Source Oral Oral Pulse Rate [Right Brachial] 70 70 Respiratory Rate 18 18 Blood Pressure [Right Arm] 133/89 133/89 Blood Pressure Mean [Right Arm] 103 103 Blood Pressure Source [Right Arm] Automatic Cuff Automatic Cuff Blood Pressure Position [Right Arm] Sitting Sitting 02 Sat by Pulse Oximetry 98 98 Oxygen Delivery Method Room Air Room Air Orders (Tests/Meds): ORDERS Category Date Time Status XR knee LT 3V Stat Exams 01/25/20 16:55 Taken - Radiology Data #1 Image(s): Knee Image Reviewed: Yes I reviewed the patient's radiology image w/the ED provider Preliminary Findings: No Fracture Seen - Physician Consults Physician Consulted: Geraldine Time: 17:41 Reason -: Orthopedic Eval/Care Comment/Response: Spoke with Dr Chandler about patient and she advised knee immobilizer, RICE crutches and call office for appointment [facility] [place] - General Stated complaint: pain L Knee Time Seen by Provider: 01/25/20 17:22 Mode of Arrival: Ambulatory Source of Information: Patient Limitations: No Limitations Description of Symptoms (Recalled from Triage Doc. by RN): PATIENT C/O PAIN AND SWELLING TO LEFT KNEE SINCE SHE WOKE UP YESTERDAY MORNING HEENT Symptoms (Recalled from RN notes): No Resp Symptoms (Recalled from RN notes): No Skin Symptoms (Recalled from RN notes): No MS Symptoms (Recalled from RN notes): Yes Functional Status (Recalled from RN notes): WNL - History of Present Illness Provider Complaint: Patient states that she woke up yesterday with swelling and pain in her left knee States that she doesnt recall doing anything to hurt it States that hurts when she tries to walk on it, it feels like it is going to give out and has pain that shoots down her leg. States that today it was more swollen so this evening she come in to get it checked out - Related Data Home Medications Medication Instructions Recorded Confirmed Potassium Chloride 20 meq PO DAILY 06/09/19 01/19/20 Atorvastatin Calcium [Lipitor 80mg 80 mg PO DAILY 09/28/19 01/19/20 Tablet] estradioL [Estradiol] 1 mg PO TID 09/28/19 01/19/20 sucralfate 1 gram tablet 1 g PO BID tab 10/06/19 01/19/20 Previous Rx's Medication Instructions Recorded albuterol sulfate 90 mcg/actuation 2 puff INHALATION Q4-6H PRN #1 inh 11/04/18 aerosol inhaler nystatin 100,000 unit/gram topical 1 applic TOPICAL TID #30 g 10/11/19 cream c
[2020-01-25 18:16] VITALS: BP 133/89; PULSE 70; RESP 18; TEMP 36.7; O2SAT 98
== END 2020-01-25 18:22 | disposition home or self-care (01) ==
PROVIDERS: Emergency Provider Nurse Practitioner; PCP Nurse Practitioner Family
DX: M25.462 Effusion, left knee (principal); E78.5 Hyperlipidemia, unspecified; I10 Essential (primary) hypertension; F17.210 Nicotine dependence, cigarettes, uncomplicated; Z90.710 Acquired absence of both cervix and uterus; Z90.49 Acquired absence of other specified parts of digestive tract
CPT/HCPCS: 29505; 73562; 99202

== ENCOUNTER → 2020-03-28 08:31 | Outpatient (CLI) | payer OTHER, SELFPAY ==
--- NOTE | 2020-03-28 08:31 | MM_ITS ---
PROCEDURE: MM DIG SCREENING MAMM BI W/CAD Digital Breast Tomosynthesis Included CLINICAL INDICATION: Routine Screening Mammogram There is a history of breast cancer in the patient's mother diagnosed after menopause. Patient currently is on estrogen. COMPARISON: MG DMSB DIG MAMM-SCREEN EMANUEL W/CAD from 03/19/2017 MG SCBI MM Dig screening mamm BI w/CAD from 03/20/2018 MG MM DIG SCREENING MAMM BI W/CAD from 03/26/2019 TECHNIQUE: Standard CC and MLO images and 3D Tomosynthesis was obtained. R2 CAD reviewed. FINDINGS: Mild to moderate scattered fibroglandular densities are seen throughout both breasts. There is no new or suspicious lesion in either breast and no suspicious microcalcifications. There is a stable low-lying node left axilla. IMPRESSION: Fibrofatty parenchyma with no suspicious lesions seen BI-RAD Category: 1 Negative FOLLOW-UP: 1YR 1 Year Follow-up (A letter has been sent to the patient regarding results of the study.) Dictated by: Dr. Fercho Bentley MD 03/28/2020 13:35 Dr. Fercho Bentley MD in [place] 03/28/2020 13:35
== END ==
PROVIDERS: PCP Nurse Practitioner Family; Visit Provider Obstetrics & Gynecology
DX: Z12.31 Encounter for screening mammogram for malignant neoplasm of breast (principal)
CPT/HCPCS: 77063; 77067

== ENCOUNTER → 2020-04-03 13:51 | Outpatient (POV) | payer OTHER, SELFPAY | PROVIDERS: Visit Provider Nurse Practitioner Family | DX: Z00.00 Encounter for general adult medical examination without abnormal findings (principal) ==

== ENCOUNTER → 2020-05-08 07:28 | Outpatient (CLI) | payer OTHER, SELFPAY ==
--- NOTE | 2020-05-08 07:29 | CA_ITS ---
APPROVED REPORT EXAM: Comprehensive 2D, Doppler, and color-flow Echocardiogram Printing Technician: Gisella León RVT Ht: 5 ft 4 in Wt: 160lbs BSA: 1.78 BP: 148/98 mmHg Indications: SOA,GODINEZ,SMOKER,THN,HLD,ASTHMA 2D Dimensions LVOT 1.65 cm (M/F) 1.5-2.5 M-Mode Dimensions RVDd 2.29 cm (0.9-2.6) LA Diam 3.33 cm (1.9-4.0) LVDd 4.95 cm (3.5-5.7) Ao Diam 2.89 cm (2.0-3.7) LVDs 3.42 cm (3.5-5.7) IVSd 0.60 cm (0.6-1.1) PWd 0.55 cm (0.6-1.1) EF (Teich) 58.40% FS 30.90% EDV (Teich) 115.50 mL ESV (Teich) 48.10 mL LV Diastology E Decel Time 190.00 (160-240 msec) E/A Ratio 1.1 MED E' 6.50 (< 7 cm/sec) E'/MED E' Ratio 10.55 (>14) LAT E' 11.40 (<10 cm/sec) E/LAT E' Ratio 6.02 (>14) Mitral Valve MV E Max José. 69.00 (40-130 cm/s) MV A Velocity 61.00 (40-130 cm/s) E/A Ratio 1.13 MV Decel. Time 190.00 (160-240 ms) MV PHT 56.00 ms Pulmonary Valve PV Peak Velocity 63.00 (50-150 cm/s) Left Ventricle Left atrium is normal size, left ventricle is normal size, left ventricle wall thickness is upper limit of the normal, there is preserved left ventricular systolic function, visually estimated ejection fraction 55% with no regional wall motion abnormality, diastolic parameters are inconclusive. Right Ventricle Right atrium and right ventricle are normal size and contractility. Aortic Valve Aortic valve is minimally thickened and fibrosed, there is no aortic stenosis or aortic insufficiency. Mitral Valve Mitral valve is grossly normal, there is mild mitral regurgitation. Tricuspid Valve Tricuspid valve grossly normal, there is mild tricuspid regurgitation, tricuspid regurgitation jet velocity is inadequate for calculation of the right ventricular systolic pressure. Pulmonic Valve Pulmonic valve is poorly visualized. Great Vessels Aortic root is normal size. Pericardium No significant pericardial effusion noted. Conclusion 1. Normal left ventricular size, preserved left ventricular systolic function, visually estimated ejection fraction 55% with no regional wall motion abnormality, diastolic parameters are inconclusive. 2. Mild mitral and tricuspid regurgitation. 3. No significant pericardial effusion noted. Electronically signed by : Luis A Zacarias, 05/09/2020 06:00:02
--- NOTE | 2020-05-08 09:07 | PC.NURSE ---
PFT completed on Patient without complications. Albuterol 0.083% given via hand held nebulizer per protocol, Pt tolerated tx well.
[2020-05-09 14:28] LABS: Alpha-1-Antitrypsin 125 mg/dL (101-187)
== END ==
PROVIDERS: PCP Nurse Practitioner Family; Visit Provider Internal Medicine Pulmonary Disease
DX: R06.00 Dyspnea, unspecified (principal); R06.01 Orthopnea; J44.9 Chronic obstructive pulmonary disease, unspecified
CPT/HCPCS: 36415; 82103; 93306; 94060; 94726; 94729

== ENCOUNTER → 2020-06-14 11:34 | Outpatient (CLI) | payer OTHER, SELFPAY ==
[2020-06-14 13:22] LABS: HCG Qualitative, Serum Negative (Negative)
[2020-06-14 13:33] LABS: Coronavirus 19 IgG Antibody Negative (Negative); Coronavirus 19 IgM Antibody Negative (Negative)
== END ==
PROVIDERS: Visit Provider Internal Medicine Gastroenterology
DX: Z01.812 Encounter for preprocedural laboratory examination (principal); Z11.52 Encounter for screening for COVID-19; Z13.810 Encounter for screening for upper gastrointestinal disorder
CPT/HCPCS: 36415; 84703; 86328

== ENCOUNTER 2020-06-16 09:40 | Day surgery (SDC) | payer OTHER, SELFPAY ==
[2020-06-16 10:17] VITALS: BP 120/68; PULSE 58; RESP 20; TEMP 36.6; O2SAT 98; BMI 26.6
[2020-06-16 11:40] VITALS: O2SAT 97
--- NOTE | 2020-06-16 11:56 | P.PCN_ITS ---
[facility] Procedure Note Procedure Note:: Upper Endoscopy Procedure Report: Esophagogastroduodenoscopy with cold biopsies Endoscopost: Coy Mcfarlane II, MD Referring Physician: Brenna COONEY Date of Procedure: June 16, 2020 Equipment: Olympus GIF 180 standard upper endoscope Sedation: MAC sedation Indications: Mrs. Holden is a 44-year-old female with chronic functional dyspepsia. She reports epigastric abdominal pain and discomfort intermittently with bloating and early satiety. She does have some occasional nausea and regurgitation. She reports no significant heartburn. She does get some globus sensation. She did have cholecystectomy 3 years ago. The patient does report constipation that alternates with diarrhea. She had a colonoscopy with nh 1 year ago (May 2019) and had a single polyp (tubular adenoma) removed. Her biopsies of the colon did not show any evidence of microscopic colitis. Procedure: Prior to the procedure, a history and physical exam was performed, and patient's medications and allergies were reviewed. The risks, benefits and alternatives of the sedation and procedure were discussed with the patient. All questions were answered and informed consent was obtained. The patient was brought to the procedure room. Patient identification and proposed procedure were verified by the physician and the nurse. The patient was placed in a left lateral decubitus position and the scope was passed under direct vision. Throughout the procedure, the patient's blood pressure, pulse, and oxygen saturations were monitored continuously. The upper GI endoscopy was accomplished without difficulty. The patient tolerated the procedure well. Findings: The scope was passed directly into the upper esophagus and advanced to the third portion of the duodenum. The post bulbar duodenum and duodenal bulb were normal with normal mucosa and conniventes. The scope was withdrawn through a normal duodenal bulb and pylorus into the stomach. There was evidence of chronic gastritis of the body and fundus and biopsies were taken from the lesser curvature of the stomach to rule out H. pylori. Upon retroflexion there was no hiatal hernia. The scope was then withdrawn into the esophagus. There was no evidence of reflux esophagitis or Snider's. There was no Schatzki's ring. There was a serrated Z-line. Biopsies were taken at the GE junction. There were tertiary contractions and evidence of moderate esophageal dysmotility. The remainder of the esophageal mucosa was normal. Impression: 1. Nonerosive GERD with moderate esophageal dysmotility 2. Chronic gastritis?rule out H. pylori Plan: I will follow-up the biopsies. The patient does have intermittent functional dyspepsia and functional bowel disease/IBS. We will discuss additional treatment options.
[2020-06-16 12:00] VITALS: BP 124/75; PULSE 63; RESP 18; TEMP 36.6; O2SAT 96
[2020-06-16 12:10] VITALS: BP 115/80; PULSE 55; RESP 18; O2SAT 99
[2020-06-16 12:20] VITALS: BP 121/54; PULSE 54; RESP 18; O2SAT 99
[2020-06-16 12:39] VITALS: BP 154/78; PULSE 55; RESP 18; O2SAT 99
--- NOTE | 2020-06-16 13:45 | HMH.ANESCL ---
[facility] Anesthesia Checklist - Patient Identification Patient Identification: Arm Band - Structural Data Admitted From: Home Planned Operative Procedure/s: egd Consent for Planned Operative Procedure(s) Verified: Yes Verified Documents: Surgical Consent - Additional verifications Anesthesia Reactions: Yes (hard to wake up) Hx Blood Transfusions: No - Anesthesia Plan Anesthesia Risk discussed: Yes Anesthesia Plan: Patient unable to respond/answer ASA Class: III Anesthesia Type: General [facility] History Medical History: Reports:: Asthma, Cancer (ovary / throat), Hyperlipidemia, Hypertension Denies:: Chronic Obstructive Pulmonary Disease (COPD), Diabetes Mellitus Type 1, Diabetes Mellitus Type 2, Internal Pacemaker, Kidney Stones, MRSA, Seizures *Have you ever received a pneumonia vaccine?: No *Have you received a flu vaccine this season?: Yes Anesthesia experience/problems:: none Other Surgeries: Yes: Appendectomy, Cholecystectomy, , EGD, Hysterectomy-Total, Hysterectomy-Partial, Other. No: Pacemaker Amputation: No Fractures: No - *Social History Last grade of school completed: 11th or 12th Smoking Status: Current every day smoker Tobacco Type: cigarettes # Packs/Day (cigarettes): 2 Alcohol Intake: never Alcohol Intake Frequency:: other Substance Use Type: denies use *Occupational Status:: unemployed Housing: house Household Members: family *Travel in the last 8 weeks: None Family Hx:: Cancer, Coronary Artery Disease, Diabetes, Heart Attack
== END 2020-06-16 12:45 | disposition home or self-care (01) ==
LOC: OUTP 09:41
PROVIDERS: PCP Nurse Practitioner Family; Visit Provider Internal Medicine Gastroenterology
PROC: 0DJ08ZZ Inspection of Upper Intestinal Tract, Via Natural or Artificial Opening Endoscopic (ICD-10-PCS; CPT 43235; principal; 2020-06-16 11:00)
DX: K21.9 Gastro-esophageal reflux disease without esophagitis; K22.4 Dyskinesia of esophagus; K29.50 Unspecified chronic gastritis without bleeding; J45.909 Unspecified asthma, uncomplicated; E78.5 Hyperlipidemia, unspecified; I10 Essential (primary) hypertension; Z85.43 Personal history of malignant neoplasm of ovary; Z85.01 Personal history of malignant neoplasm of esophagus; Z88.6 Allergy status to analgesic agent; Z91.041 Radiographic dye allergy status; Z79.890 Hormone replacement therapy; Z79.899 Other long term (current) drug therapy; Z79.51 Long term (current) use of inhaled steroids
CPT/HCPCS: 43239

== ENCOUNTER 2020-07-25 08:56 | Emergency (ER) | payer OTHER, SELFPAY ==
[2020-07-25] VITALS (7 sets, daily range): BP systolic 133–160; BP diastolic 61–94; PULSE 57–91; RESP 18–20; TEMP 36.7; O2SAT 97–99; BMI 28.2
--- NOTE | 2020-07-25 10:42 | HMH.EDGENADL ---
ED Disposition Clinical Impression: Inflammation of operative incision Disposition: Home, Self-Care Condition on Discharge: Good Instructions: DI for Acute Abdominal Pain Additional Instructions: Clindamycin and Lamisil as prescribed. Follow-up with Dr. Crenshaw in her office, call tomorrow to make appointment. Return to the emergency department if worsening pain or redness or if fever greater than 100.5 degrees. Prescriptions: clindamycin HCL [Clindamycin HCl] 300 mg PO QID #40 cap Transmission Status: Pending to [facility] # terbinafine HCL [Lamisil 1% cream 12gm tube] 1 applic TP BID #12 g Transmission Status: Pending to [facility] # Referrals: Hermann Boyer APRN [Primary Care Provider] - - Critical Care Critical Care Time: No Attestation: On 07/25/20, the high probability of a clinically significant, sudden or life threatening deterioration of the following system(s) required my full and direct attention, intervention and personal management. The time I documented below is in addition to time spent performing reported procedures but includes the following listed in this critical care notation. Medical Decision Making - Christiano Inquiry Pt receiving controlled substance: No Vital Signs: 07/25/20 08:57 07/25/20 09:27 07/25/20 09:30 Temperature 98.0 F Temperature Source Oral Pulse Rate [Right] 77 88 81 Respiratory Rate 18 18 18 Blood Pressure [Right Arm] 155/71 H 136/71 138/71 Blood Pressure Mean [Right Arm] 99 92 93 Blood Pressure Source [Right Arm] Automatic Cuff Blood Pressure Position [Right Arm] Sitting Sitting Sitting 02 Sat by Pulse Oximetry 97 98 98 Oxygen Delivery Method Room Air 07/25/20 10:00 07/25/20 12:00 Temperature Temperature Source Pulse Rate [Right] 91 H 66 Respiratory Rate 18 Blood Pressure [Right Arm] 154/81 H 135/81 Blood Pressure Mean [Right Arm] 105 99 Blood Pressure Source [Right Arm] Automatic Cuff Blood Pressure Position [Right Arm] Sitting Supine 02 Sat by Pulse Oximetry 98 98 Oxygen Delivery Method Room Air - Lab Data Lab Results 07/25/20 10:30: WBC 7.5, RBC 4.77, Hgb 14.8, Hct 44.2, MCV 92.7, MCH 31.1, MCHC 33.5, RDW 12.9, Plt Count 261, MPV 8.5, Neut % (Auto) 58.4, Lymph % (Auto) 34.5, [place] % (Auto) 4.8, Eos % (Auto) 1.6, Baso % (Auto) 0.6, Neut # (Auto) 4.4, Lymph # (Auto) 2.6, [place] # (Auto) 0.4, Eos # (Auto) 0.1, Baso # (Auto) 0.1 07/25/20 10:30: Sodium 140, Potassium 3.9, Chloride 107, Carbon Dioxide 28, Anion Gap 8.9, BUN 12, Creatinine 0.80, Estimated Creat Clear 106, Estimated GFR 78, Est GFR ( Amer) 94, Glucose 104 H, Calcium 10.0, Total Bilirubin 0.6, AST 27, ALT 18, Alkaline Phosphatase 108, Total Protein 8.2, Albumin 4.5, Globulin 3.7 H, Albumin/Globulin Ratio 1.2 07/25/20 10:30: ESR 27 H 07/25/20 10:30: C-Reactive Protein 5.0 H 07/25/20 12:07: Urine Color Yellow, Urine Appearance Clear, Urine pH 6.5, Ur Specific [place] 1.015, Urine Protein Negative, Urine Glucose (UA) Negative, Urine Ketones Negative, Urine Blood 1+, Urine Nitrate Negative, Urine Bilirubin Negative, Urine Urobilinogen 0.2, Ur Leukocyte Esterase Negative, Urine RBC None, Urine WBC 3-5, Ur Squamous Epith Cells 5-10, Urine Bacteria 1+ Result diagrams: 07/25/20 10:30 07/25/20 10:30 Medical Decision Narrative: States she has allergy to radiographic contrast, has hives. She has never been pretreated, has never received contrast media since her initial reaction. 10:15 PM: Work-up is unremarkable. Infection appears to be superficial, likely either fungal or cellulitis. I will treat with topical antifungal and oral antibiotic and follow-up as an outpatient. General Adult HPI - General Chief complaint: Abdominal Pain Stated complaint: redness/pain in lower abdominal area Time Seen by Provider: 07/25/20 10:42 Mode of Arrival: Family Vehicle Limitations: No Limitations Description of Symptoms (Recalled from ER Triage Doc. by RN
[2020-07-25 10:44] LABS: Basophils # 0.1 K/mm3 (0-0.2); Basophils % 0.6 % (0.1-2.0); Eosinophils # 0.1 K/mm3 (0.0-0.4); Eosinophils % 1.6 % (0.1-12.0); Hematocrit 44.2 % (37.0-47.0); Hemoglobin 14.8 g/dL (12.2-16.2); Lymphocytes # 2.6 K/mm3 (0.7-4.5); Lymphocytes % 34.5 % (10-50); Mean Corpuscular HGB Conc 33.5 g/dL (31.8-35.4); Mean Corpuscular Hemoglobin 31.1 pg (27.0-31.2); Mean Corpuscular Volume 92.7 fl (81-99); Mean Platelet Volume 8.5 fl (7.4-10.4); Monocytes # 0.4 K/mm3 (0.1-1.0); Monocytes % 4.8 % (1.7-9.3); Neutrophils # 4.4 K/mm3 (1.8-7.8); Neutrophils % 58.4 % (37.0-80.0); Platelet Count 261 K/mm3 (142-424); Red Blood Count 4.77 M/mm3 (4.20-5.40); Red Cell Distribution Width 12.9 % (11.5-17.5); White Blood Count 7.5 K/mm3 (4.8-10.8)
--- NOTE | 2020-07-25 10:52 | CT_ITS ---
PROCEDURE: CT ABDOMEN PELVIS WO CON CLINICAL INDICATION: LLQ and suprapubic abdom pain COMPARISON: CT CT ABDOMEN PELVIS WO CON from 05/22/2019 TECHNIQUE: Axial images obtained with sagittal and coronal reformats. All CT scans at the facility use one or more dose reduction, viz: automated exposure control, ma/kV adjustment per patient size (including targeted exams where dose is matched to indication, i.e. head), or iterative reconstruction technique. FINDINGS: LOWER THORAX: Atelectatic changes are present in the lower lobes posteriorly slightly greater on the right ABDOMEN & PELVIS: Prior cholecystectomy. The liver, spleen, adrenal glands, have an unremarkable unenhanced appearance. Unremarkable unenhanced appearance of the pancreas. There is a nonobstructing 2 mm stone in the lower pole of the left kidney. No ureteral calculi. Prior hysterectomy with postsurgical changes of the anterior abdominal wall. No intestinal obstruction or free air. There is a mild amount of retained colonic feces. Prior appendectomy. There is some mild thickening of the descending colon and proximal sigmoid colon nonspecific. No evidence of diverticulitis. There are few air-fluid levels within nondistended small bowel. Low-density changes are present within the L2 vertebral body on the left and may be due to a hemangioma. There is a tiny umbilical hernia containing fat. There are few small nodes in the inguinal regions on both sides. IMPRESSION: 1. Possible mild enterocolitis. 2. Nonobstructing 2 mm left renal calculus. 3. Mild basilar atelectasis Dictated by: Zhou Messina MD 07/25/2020 11:54 Zhou Messina MD in [facility] 07/25/2020 11:54
[2020-07-25 11:00] LABS: Alanine Aminotransferase 18 U/L (12-78); Albumin Level 4.5 g/dl (3.5-5.0); Albumin/Globulin Ratio 1.2 (1.1-1.8); Alkaline Phosphatase 108 U/L (38-126); Anion Gap 8.9 mEq/L (5-15); Aspartate Amino Transferase 27 U/L (14-36); Bilirubin,Total 0.6 mg/dl (0.2-1.3); Blood Urea Nitrogen 12 mg/dl (7-17); Carbon Dioxide 28 mmol/L (22.0-30.0); Chloride 107 mmol/L (98-107); Creatinine Clearance Estimated 106 mL/min (50-200); Estimated Glomerular Filt Rate 78 ml/min (>60); GFR (African American) 94 ML/MIN (>60); Globulin 3.7 g/dL (1.3-3.2); Glucose 104 mg/dl (74-100); Potassium 3.9 mmoL/L (3.5-5.1); Sodium 140 mmol/L (136-145); Total Protein,Serum 8.2 g/dl (6.3-8.2)
[2020-07-25 11:31] LABS: Erythrocyte Sedimentation Rate 27 mm/hr (0-20)
[2020-07-25 12:16] LABS: Microscopic, Urine URINE MICROSCOPIC (MICROSCOPIC)
[2020-07-25 12:33] LABS: Appearance,Urine CLEAR (Clear); Bilirubin,Urine Negative (Negative); Blood, Urine 1+ (Negative); Color,Urine YELLOW (Yellow); Glucose,Urine (UA) Negative (Negative); Ketones,Urine Negative (Negative); Leukocyte Esterase,Urine Negative (Negative); Nitrate,Urine Negative (Negative); PH,Urine 6.5 (5.0-8.5); Protein,Urine Negative (Negative); Specific Gravity, Urine 1.015 (1.005-1.030); Urobilinogen,Urine 0.2 EU/dl (0.2)
[2020-07-25 12:45] LABS: Bacteria,Urine 1+ /lpf
== END 2020-07-25 14:00 | disposition home or self-care (01) ==
PROVIDERS: Emergency Provider Emergency Medicine; PCP Nurse Practitioner Family
DX: R10.30 Lower abdominal pain, unspecified (principal); E78.5 Hyperlipidemia, unspecified; I10 Essential (primary) hypertension; F17.210 Nicotine dependence, cigarettes, uncomplicated; Z85.43 Personal history of malignant neoplasm of ovary; Z79.899 Other long term (current) drug therapy
CPT/HCPCS: 74176; 80053; 81001; 85025; 85651; 86140; 99283

== ENCOUNTER 2020-09-10 09:53 | Emergency (ER) | payer OTHER, SELFPAY ==
[2020-09-10 10:00] VITALS: BP 147/92; PULSE 83; RESP 19; TEMP 37; O2SAT 97; BMI 27.3
--- NOTE | 2020-09-10 10:29 | XR_ITS ---
PROCEDURE: XR ELBOW RT MIN 3V CLINICAL INDICATION: PAIN COMPARISON: No exams were available for comparison FINDINGS: No fracture or dislocation. No lytic or blastic change. There is normal mineralization. The joint spaces are well-preserved. No significant degenerative/arthritic changes. No erosive changes evident. Other findings:None. IMPRESSION: No acute findings. Dictated by: Zhou Messina MD 09/10/2020 13:16 Zhou Messina MD in [facility] 09/10/2020 13:16
--- NOTE | 2020-09-10 10:29 | HMH.EDUTC ---
[facility] [place] Clinical Impression: Cubital tunnel syndrome Qualifiers: Laterality: right Qualified Code(s): G56.21 - Lesion of ulnar nerve, right upper limb Disposition: Home, Self-Care Condition on Discharge: Good Instructions: Ibuprofen, Cubital Tunnel Syndrome, DI for Cubital Tunnel Syndrome Additional Instructions: Don't rest on your elbows, especially on a hard surface. Resting and stopping any activity that aggravates the condition, such as bending the elbow Cubital tunnel syndrome is a problem with the ulnar nerve, which passes through the inside of the elbow. It causes pain that feels a lot like the pain you feel when you hit the funny bone in your elbow Make sure to call back to the [facility] for your official reading of your xray Follow up with Family Doctor if any worsening of symptoms Return if needed Prescriptions: Ibuprofen [Ibuprofen 600mg Tablet] 600 mg PO Q6HP PRN #20 tab PRN Reason: Moderate Pain Transmission Status: Received by [facility] #[id number] Referrals: Hermann Boyer APRN [Primary Care Provider] - As needed Medical Decision Making - Christiano Inquiry Pt receiving controlled substance: No Christiano was queried for this patient: No Vital Signs: 09/10/20 10:00 09/10/20 11:08 Temperature 98.6 F 98.6 F Temperature Source Oral Pulse Rate 83 Pulse Rate [Right Brachial] 83 Respiratory Rate 19 19 Blood Pressure 147/92 H Blood Pressure [Right Arm] 147/92 H Blood Pressure Mean [Right Arm] 110 Blood Pressure Source [Right Arm] Automatic Cuff Blood Pressure Position [Right Arm] Sitting 02 Sat by Pulse Oximetry 97 Oxygen Delivery Method Room Air - Radiology Data #1 Image(s): Elbow Image Reviewed: Yes I reviewed the patient's radiology image Preliminary Findings: No Fracture Seen Medical Decision Narrative: Patient reports that she has been having pain and tingling/numbness like feeling in her right elbow that shoots down her arms and makes her fingers feel tingling at times State that she leans and rests on that elbow when sitting, patient able to make fist and reports that tingling is worse when she bends elbow suspicious for Cubital tunnel Syndrome of right elbow Denies known injury Discussed transfer to the ED for further evaluation and patient declined at this time will try medication and follow up with her PCP Denies numbness at this time able to move fingers easily Patient denies history of DVT [facility] [place] HPI - General Stated complaint: right arm numb and tingling Time Seen by Provider: 09/10/20 10:29 Mode of Arrival: Ambulatory Source of Information: Patient Limitations: No Limitations Description of Symptoms (Recalled from Triage Doc. by RN): PATIENT C/O TIGHTNESS, NUMBNESS, AND TINGLING TO RIGHT ARM FROM ELBOW DOWN X 3 DAYS HEENT Symptoms (Recalled from RN notes): No Resp Symptoms (Recalled from RN notes): No Skin Symptoms (Recalled from RN notes): No MS Symptoms (Recalled from RN notes): Yes Functional Status (Recalled from RN notes): WNL - History of Present Illness Provider Complaint: Patient state that she has been having pain in her right elbow for about 3 days States that she does not remember hitting elbow or anything but when she bends her elbow she feels like that pain shoots down her arm into her hand and fingers like electricity and feels tingly at times States that today it was feeling better but she was still having pain in elbow so she came in - Related Data Previous Rx's Medication Instructions Recorded Ibuprofen [Ibuprofen 600mg 600 mg PO Q6HP PRN #20 tab 09/10/20 Tablet] Allergies Allergy/AdvReac Type Severity Reaction Status Date / Time Iodinated Contrast Media Allergy Intermediate I-HIVES Verified 07/17/20 15:24 [IODINATED CONTRAST MEDIA - ORAL AND] iodine [IODINE] Allergy Mild Verified 07/17/20 15:24 oxytocin [From Pitocin] Allergy Verified 07/17/20 15:24 - Worker's Comp Is this a Worker's Comp case?: No
[2020-09-10 11:08] VITALS: BP 147/92; PULSE 83; RESP 19; TEMP 37; O2SAT 97
== END 2020-09-10 11:11 | disposition home or self-care (01) ==
PROVIDERS: Emergency Provider Nurse Practitioner; PCP Nurse Practitioner Family
DX: G56.21 Lesion of ulnar nerve, right upper limb (principal); I10 Essential (primary) hypertension; E78.5 Hyperlipidemia, unspecified; F17.210 Nicotine dependence, cigarettes, uncomplicated; Z79.899 Other long term (current) drug therapy
CPT/HCPCS: 73080; 99202; G0463

== ENCOUNTER → 2020-09-21 17:14 | Outpatient (CLI) | payer OTHER, SELFPAY ==
[2020-09-21 17:34] LABS: Basophils # 0.1 K/mm3 (0-0.2); Basophils % 0.6 % (0.1-2.0); Eosinophils # 0.1 K/mm3 (0.0-0.4); Eosinophils % 0.9 % (0.1-12.0); Hematocrit 45.2 % (37.0-47.0); Lymphocytes # 2.8 K/mm3 (0.7-4.5); Lymphocytes % 31.7 % (10-50); Mean Corpuscular HGB Conc 33.1 g/dL (31.8-35.4); Mean Corpuscular Hemoglobin 30.7 pg (27.0-31.2); Mean Corpuscular Volume 92.8 fl (81-99); Mean Platelet Volume 9.1 fl (7.4-10.4); Monocytes # 0.5 K/mm3 (0.1-1.0); Monocytes % 5.3 % (1.7-9.3); Neutrophils # 5.4 K/mm3 (1.8-7.8); Neutrophils % 61.5 % (37.0-80.0); Platelet Count 273 K/mm3 (142-424); Red Blood Count 4.87 M/mm3 (4.20-5.40); Red Cell Distribution Width 12.4 % (11.5-17.5); White Blood Count 8.8 K/mm3 (4.8-10.8)
[2020-09-21 17:48] LABS: Alanine Aminotransferase 21 U/L (12-78); Albumin Level 4.5 g/dl (3.5-5.0); Albumin/Globulin Ratio 1.5 (1.1-1.8); Alkaline Phosphatase 143 U/L (38-126); Anion Gap 11.7 mEq/L (5-15); Aspartate Amino Transferase 30 U/L (14-36); Bilirubin,Total 0.8 mg/dl (0.2-1.3); Blood Urea Nitrogen 9 mg/dl (7-17); Calcium 10.2 mg/dl (8.4-10.2); Carbon Dioxide 28 mmol/L (22.0-30.0); Chloride 104 mmol/L (98-107); Chol/HDL Ratio 8.3 (1-3.5); Cholesterol 282 mg/dl (140-200); Estimated Glomerular Filt Rate 78 ml/min (>60); GFR (African American) 94 ML/MIN (>60); Glucose 80 mg/dl (74-100); HDL Cholesterol 34 mg/dl (40-60); Potassium 3.7 mmoL/L (3.5-5.1); Sodium 140 mmol/L (136-145); Total Protein,Serum 7.5 g/dl (6.3-8.2); Triglycerides 350 mg/dl (30-150); Uric Acid 6.2 mg/dl (2.5-6.2); VLDL Cholesterol 70 mg/dL (0-40)
[2020-09-21 17:56] LABS: 25-OH Vitamin D, Total < 12.8 ng/mL (30-100)
[2020-09-21 17:59] LABS: Direct LDL Cholesterol 169.59 mg/dL (100-129)
[2020-09-21 18:05] LABS: T4 (Thyroxine) 8.9 ug/dl (5.53-11.0)
[2020-09-21 18:18] LABS: Thyroid Stimulating Hormone 1.05 uIU/mL (0.465-4.68)
[2020-09-21 18:54] LABS: Hemoglobin A1C 5.6 % (4.0-6.0)
== END ==
PROVIDERS: Visit Provider Nurse Practitioner Family
DX: E78.5 Hyperlipidemia, unspecified (principal); E55.9 Vitamin D deficiency, unspecified; R53.83 Other fatigue; M79.643 Pain in unspecified hand
CPT/HCPCS: 80053; 80061; 82306; 83036; 84436; 84443; 84550; 85025

== ENCOUNTER → 2020-10-09 11:02 | Outpatient (POV) | payer OTHER, SELFPAY | PROVIDERS: Visit Provider Nurse Practitioner Family | DX: Z00.00 Encounter for general adult medical examination without abnormal findings (principal) ==

== ENCOUNTER → 2020-12-08 17:21 | Outpatient (CLI) | payer OTHER, SELFPAY ==
[2020-12-08 18:16] LABS: Basophils # 0.1 K/mm3 (0-0.2); Basophils % 0.5 % (0.1-2.0); Eosinophils # 0.1 K/mm3 (0.0-0.4); Eosinophils % 0.9 % (0.1-12.0); Hematocrit 42.3 % (37.0-47.0); Hemoglobin 14.7 g/dL (12.2-16.2); Lymphocytes # 2.9 K/mm3 (0.7-4.5); Lymphocytes % 31.2 % (10-50); Mean Corpuscular HGB Conc 34.8 g/dL (31.8-35.4); Mean Corpuscular Hemoglobin 31.9 pg (27.0-31.2); Mean Corpuscular Volume 91.5 fl (81-99); Mean Platelet Volume 9.7 fl (7.4-10.4); Monocytes # 0.4 K/mm3 (0.1-1.0); Monocytes % 4.6 % (1.7-9.3); Neutrophils # 5.8 K/mm3 (1.8-7.8); Neutrophils % 62.8 % (37.0-80.0); Platelet Count 282 K/mm3 (142-424); Red Blood Count 4.62 M/mm3 (4.20-5.40); Red Cell Distribution Width 13.5 % (11.5-17.5); White Blood Count 9.3 K/mm3 (4.8-10.8)
[2020-12-08 19:56] LABS: Alanine Aminotransferase 29 U/L (12-78); Albumin Level 4.4 g/dl (3.5-5.0); Albumin/Globulin Ratio 1.5 (1.1-1.8); Alkaline Phosphatase 140 U/L (38-126); Anion Gap 13.7 mEq/L (5-15); Aspartate Amino Transferase 31 U/L (14-36); Bilirubin,Total 1.1 mg/dl (0.2-1.3); Blood Urea Nitrogen 7 mg/dl (7-17); Calcium 9.3 mg/dl (8.4-10.2); Carbon Dioxide 25 mmol/L (22.0-30.0); Chloride 105 mmol/L (98-107); Chol/HDL Ratio 7.1 (1-3.5); Cholesterol 240 mg/dl (140-200); Estimated Glomerular Filt Rate 90 ml/min (>60); GFR (African American) 109 ML/MIN (>60); Globulin 2.9 g/dL (1.3-3.2); Glucose 91 mg/dl (74-100); HDL Cholesterol 34 mg/dl (40-60); Potassium 3.7 mmoL/L (3.5-5.1); Sodium 140 mmol/L (136-145); Total Protein,Serum 7.3 g/dl (6.3-8.2); Triglycerides 317 mg/dl (30-150); VLDL Cholesterol 63 mg/dL (0-40)
[2020-12-08 20:07] LABS: Direct LDL Cholesterol 130.89 mg/dL (100-129)
[2020-12-08 20:12] LABS: 25-OH Vitamin D, Total 18.5 ng/mL (30-100)
== END ==
PROVIDERS: Visit Provider Nurse Practitioner Family
DX: R06.02 Shortness of breath (principal); E55.9 Vitamin D deficiency, unspecified; Z79.899 Other long term (current) drug therapy
CPT/HCPCS: 80053; 80061; 82306; 85025

== ENCOUNTER 2021-02-17 13:38 | Emergency (ER) | payer OTHER, SELFPAY ==
[2021-02-17 14:20] VITALS: BP 160/86; PULSE 67; RESP 18; TEMP 36.7; O2SAT 99; BMI 27.3
--- NOTE | 2021-02-17 14:41 | HMH.EDUTC ---
[facility] [place] Disposition Clinical Impression: Swelling of left knee joint Left knee pain Qualifiers: Chronicity: acute Qualified Code(s): M25.562 - Pain in left knee Disposition: Home, Self-Care Condition on Discharge: Good Instructions: DI for Knee Pain Additional Instructions: Follow up with Hermann next week Prescriptions: Naproxen [Naproxen 500mg tab] 500 mg PO BID 10 Days #20 tab Transmission Status: Pending to [facility] #[id number] Referrals: Hermann Boyer APRN [Primary Care Provider] - Time of Disposition: 16:21 Medical Decision Making - Christiano Inquiry Pt receiving controlled substance: No Vital Signs: 02/17/21 14:20 02/17/21 15:46 Temperature 98.0 F 98.0 F Temperature Source Oral Pulse Rate 67 Pulse Rate [Right Brachial] 67 Respiratory Rate 18 18 Blood Pressure 160/86 H Blood Pressure [Right Arm] 160/86 H Blood Pressure Mean [Right Arm] 110 Blood Pressure Source [Right Arm] Automatic Cuff Blood Pressure Position [Right Arm] Sitting 02 Sat by Pulse Oximetry 99 Oxygen Delivery Method Room Air Orders (Tests/Meds): ORDERS Category Date Time Status Knee XR left 3 views [XR knee LT 3V] Stat Exams 02/17/21 15:12 Taken - Radiology Data #1 Image(s): Knee Image Reviewed: Yes I reviewed the patient's radiology image Preliminary Findings: Abnormal (effusion) [facility] [place] HPI - General Stated complaint: lft knee pain/swelling Time Seen by Provider: 02/17/21 15:21 - History of Present Illness Provider Complaint: Woke up with left knee pain and swelling. Doesn't recall any injury. No redness, warmth, trauma, signs of infection. Hurts to bend knee. Onset (ago): day(s) (1) Location: left, lower extremity Relieving factors: none Exacerbating factors: none Associated symptoms: denies other symptoms Treatments prior to arrival: NSAID - Related Data Previous Rx's Medication Instructions Recorded albuterol sulfate 90 mcg/actuation 1 inh INHALATION QID PRN #8.5 g 09/11/20 aerosol inhaler estradiol 2 mg tablet 2 mg PO DAILY #90 tab 09/21/20 nystatin 100,000 unit/gram topical 1 applic TOPICAL BID #30 g 10/20/20 cream fluticasone furoate 100 1 inh INHALATION DAILY #28 each 10/26/20 mcg-vilanterol 25 mcg/dose inhalation powder azithromycin 250 mg tablet 250 mg PO QDAY 5 Days #6 tab 12/08/20 rosuvastatin 10 mg tablet 10 mg PO QHS #30 tab 12/09/20 ergocalciferol (vitamin D2) 1,250 See Rx Instructions .ROUTE 01/25/21 mcg (50,000 unit) capsule .COMPLEX #7 cap Naproxen [Naproxen 500mg tab] 500 mg PO BID 10 Days #20 tab 02/17/21 Allergies Allergy/AdvReac Type Severity Reaction Status Date / Time Iodinated Contrast Media Allergy Intermediate I-HIVES Verified 12/08/20 13:00 [IODINATED CONTRAST MEDIA - ORAL AND] iodine [IODINE] Allergy Mild Unknown Verified 12/08/20 13:00 allergy reaction oxytocin [From Pitocin] Allergy Unknown Verified 12/08/20 13:00 allergy reaction [facility] History - Hepatitis A Screen Attestation statement:: This patient has been screened for Hepatitis A risk factors. I have reviewed the patient's past medical history: Yes Medical History: Reports:: Asthma, Cancer, Hyperlipidemia, Hypertension Denies:: Chronic Obstructive Pulmonary Disease (COPD), Diabetes Mellitus Type 1, Diabetes Mellitus Type 2, Internal Pacemaker, Kidney Stones, MRSA, Seizures Other Surgeries: Yes: No Previous Surgery, Appendectomy, Cholecystectomy, , EGD, Hysterectomy-Total, Hysterectomy-Partial, Other. No: Pacemaker Amputation: No Fractures: No Comment: Primary C/S--1994. R C/S--1994. R C/S and BTL--1997. Lap Choly--2008. LSC--2015. PERLA, RT SO, extensive adhesiolysis--2015. Exp. Lap, P/W, extensive adhesiolysis, enterolysis, LT SO--2016 - Social History Smoking Status: Current every day smoker Tobacco Type: cigarettes # Packs/Day (cigarettes): 2 Alcohol Intake: never Alcohol Intake Frequency:: other Substance Use
--- NOTE | 2021-02-17 15:12 | XR_ITS ---
PROCEDURE INFORMATION: Exam: XR Left Knee Exam date and time: 02/17/2021 3:12 PM Age: 45 years old Clinical indication: Swelling or effusion of joint; Knee TECHNIQUE: Imaging protocol: XR Left knee. Views: 3 views. COMPARISON: CR XR KNEE LT 3V 01/25/2020 4:58 PM FINDINGS: Bones/joints: Mild suprapatellar joint effusion. There is no evidence of acute fracture.There is no evidence of malalignment or dislocation. Soft tissues: Normal. IMPRESSION: 1. Mild suprapatellar joint effusion. 2. There is no evidence of acute fracture.There is no evidence of malalignment or dislocation.
[2021-02-17 15:46] VITALS: BP 160/86; PULSE 67; RESP 18; TEMP 36.7; O2SAT 99
== END 2021-02-17 16:38 | disposition home or self-care (01) ==
PROVIDERS: Emergency Provider Physician Assistant; PCP Nurse Practitioner Family
DX: M25.562 Pain in left knee (principal); I10 Essential (primary) hypertension; E78.5 Hyperlipidemia, unspecified; F17.210 Nicotine dependence, cigarettes, uncomplicated
CPT/HCPCS: 29505; 73562; 96372; 99203; G0463; J1040

== ENCOUNTER → 2021-04-03 08:08 | Outpatient (CLI) | payer OTHER, SELFPAY ==
--- NOTE | 2021-04-03 08:08 | MM_ITS ---
PROCEDURE: MM DIG SCREENING MAMM BI W/CAD Digital Breast Tomosynthesis Included CLINICAL INDICATION: screening There is a history of breast cancer patient's mother diagnosed after menopause. COMPARISON: MG SCBI MM Dig screening mamm BI w/CAD from 03/20/2018 MG MM DIG SCREENING MAMM BI W/CAD from 03/26/2019 MG MM DIG SCREENING MAMM BI W/CAD from 03/28/2020 TECHNIQUE: Standard CC and MLO images and 3D Tomosynthesis was obtained. R2 CAD reviewed. FINDINGS: Mild to moderate scattered fibroglandular densities are seen throughout both breasts. There is a benign-appearing calcification left breast. There are no CAD markings. There is no suspect and no suspicious microcalcifications. IMPRESSION: Fibrofatty parenchyma with no suspicious lesions seen BI-RAD Category: 1 Negative FOLLOW-UP: 1YR 1 Year Follow-up (A letter has been sent to the patient regarding results of the study.) Dictated by: Dr. Fercho Bentley MD 04/06/2021 12:07 Dr. Fercho Bentley MD in [place] 04/06/2021 12:07
== END ==
PROVIDERS: PCP Nurse Practitioner Family; Visit Provider Obstetrics & Gynecology
DX: Z12.31 Encounter for screening mammogram for malignant neoplasm of breast (principal)
CPT/HCPCS: 77063; 77067

== ENCOUNTER → 2021-04-06 19:55 | Outpatient (CLI) | payer OTHER, SELFPAY | PROVIDERS: Visit Provider Nurse Practitioner Family | DX: U07.1 COVID-19 (principal); J02.9 Acute pharyngitis, unspecified | CPT/HCPCS: C9803; U0003; U0005 ==

== ENCOUNTER 2021-04-09 08:25 | Emergency (ER) | payer OTHER, SELFPAY ==
[2021-04-09 08:26] VITALS: BP 150/101; PULSE 90; RESP 18; TEMP 37; O2SAT 97; BMI 26.7
--- NOTE | 2021-04-09 08:40 | XR_ITS ---
PROCEDURE: XR CHEST PORTABLE CLINICAL HISTORY: cough COMPARISON: CR CXR2V XR chest 2V from 05/05/2018 CR CXR2V XR chest 2V from 07/07/2018 CR XR RIBS LT MIN 3V W CXR1V from 07/22/2019 FINDINGS: The cardiomediastinal silhouette and pulmonary vascularity are within normal limits. The lungs are clear without infiltrates, suspicious nodules, or pleural effusions. No acute bony abnormalities. IMPRESSION: No acute findings. Dictated by: Zhou Messina MD 04/09/2021 10:06 Zhou Messina MD in [place] 04/09/2021 10:06
--- NOTE | 2021-04-09 08:56 | PC.NURSE ---
Notified RT of duoneb order. Advised they will be down here as soon as they can.
[2021-04-09 09:08] LABS: Basophils # 0.1 K/mm3 (0-0.2); Basophils % 1.4 % (0.1-2.0); Eosinophils # 0.1 K/mm3 (0.0-0.4); Hematocrit 43.6 % (37.0-47.0); Hemoglobin 15.3 g/dL (12.2-16.2); Lymphocytes # 2.7 K/mm3 (0.7-4.5); Lymphocytes % 32.5 % (10-50); Mean Corpuscular HGB Conc 35.1 g/dL (31.8-35.4); Mean Corpuscular Hemoglobin 31.8 pg (27.0-31.2); Mean Corpuscular Volume 90.6 fl (81-99); Mean Platelet Volume 9.1 fl (7.4-10.4); Monocytes # 0.3 K/mm3 (0.1-1.0); Monocytes % 4.1 % (1.7-9.3); Neutrophils # 5.1 K/mm3 (1.8-7.8); Neutrophils % 61.1 % (37.0-80.0); Platelet Count 310 K/mm3 (142-424); Red Blood Count 4.81 M/mm3 (4.20-5.40); Red Cell Distribution Width 12.9 % (11.5-17.5); White Blood Count 8.4 K/mm3 (4.8-10.8)
[2021-04-09 09:19] LABS: Alanine Aminotransferase 19 U/L (12-78); Albumin Level 4.2 g/dl (3.5-5.0); Albumin/Globulin Ratio 1.3 (1.1-1.8); Alkaline Phosphatase 134 U/L (38-126); Anion Gap 7.6 mEq/L (5-15); Aspartate Amino Transferase 23 U/L (14-36); Bilirubin,Total 0.7 mg/dl (0.2-1.3); Blood Urea Nitrogen 8 mg/dl (7-17); Calcium 9.5 mg/dl (8.4-10.2); Carbon Dioxide 32 mmol/L (22.0-30.0); Chloride 104 mmol/L (98-107); Creatinine Clearance Estimated 132 mL/min (50-200); Estimated Glomerular Filt Rate 108 ml/min (>60); GFR (African American) 131 ML/MIN (>60); Globulin 3.3 g/dL (1.3-3.2); Glucose 91 mg/dl (74-100); Potassium 3.6 mmoL/L (3.5-5.1); Sodium 140 mmol/L (136-145); Total Protein,Serum 7.5 g/dl (6.3-8.2)
--- NOTE | 2021-04-09 09:40 | HMH.EDSOB ---
ED Disposition Clinical Impression: Acute exacerbation of chronic obstructive airways disease Disposition: Home, Self-Care Condition on Discharge: Good Instructions: DI for Chronic Obstructive Pulmonary Disease Prescriptions: Doxycycline Monohydrate [Doxycycline [place] 100mg Tab] 100 mg PO BID #20 tab Transmission Status: Pending to [facility] # methylPREDNISolone [Medrol 4mg tab] 4 mg PO DIRECTED #21 tab Transmission Status: Pending to [facility] # Referrals: Hermann Boyer APRN [Primary Care Provider] - - Critical Care Critical Care Time: No Attestation: On 04/09/21, the high probability of a clinically significant, sudden or life threatening deterioration of the following system(s) required my full and direct attention, intervention and personal management. The time I documented below is in addition to time spent performing reported procedures but includes the following listed in this critical care notation. Medical Decision Making - Medical Records Medical records reviewed: Yes: I reviewed the patient's medical records. - Christiano Inquiry Pt receiving controlled substance: No Vital Signs: 04/09/21 08:26 Temperature 98.6 F Temperature Source Oral Pulse Rate [Left Radial] 90 Respiratory Rate 18 Blood Pressure [Right Arm] 150/101 H Blood Pressure Mean [Right Arm] 117 Blood Pressure Source [Right Arm] Automatic Cuff Blood Pressure Position [Right Arm] Sitting 02 Sat by Pulse Oximetry 97 Oxygen Delivery Method Room Air - Lab Data Lab Results 04/09/21 08:53: WBC 8.4, RBC 4.81, Hgb 15.3, Hct 43.6, MCV 90.6, MCH 31.8 H, MCHC 35.1, RDW 12.9, Plt Count 310, MPV 9.1, Neut % (Auto) 61.1, Lymph % (Auto) 32.5, [place] % (Auto) 4.1, Eos % (Auto) 1.0, Baso % (Auto) 1.4, Neut # (Auto) 5.1, Lymph # (Auto) 2.7, [place] # (Auto) 0.3, Eos # (Auto) 0.1, Baso # (Auto) 0.1 04/09/21 08:53: Sodium 140, Potassium 3.6, Chloride 104, Carbon Dioxide 32 H, Anion Gap 7.6, BUN 8, Creatinine 0.60, Estimated Creat Clear 132, Estimated GFR 108, Est GFR ( Amer) 131, Glucose 91, Calcium 9.5, Total Bilirubin 0.7, AST 23, ALT 19, Alkaline Phosphatase 134 H, Total Protein 7.5, Albumin 4.2, Globulin 3.3 H, Albumin/Globulin Ratio 1.3 Result diagrams: 04/09/21 08:53 04/09/21 08:53 Orders (Tests/Meds): ED MEDICATIONS Discontinued Medications Generic Name Dose Route Start Last Admin Trade Name Harry PRN Reason Stop Dose Admin Albuterol/Ipratropium 3 ml 04/09/21 08:41 Ipratropium/Albuterol 3 Ml Neb IH 04/09/21 08:42 ONCE ONE Dexamethasone Sodium Phosphate 10 mg 04/09/21 08:40 04/09/21 08:56 Dexamethasone 4mg/Ml 5ml Mdv IV 04/09/21 08:41 10 mg ONCE ONE Administration ORDERS Category Date Time Status XR chest portable Stat Exams 04/09/21 08:40 Taken - Radiology Data #1 Image(s): Chest Image Reviewed: Yes I reviewed the patient's radiology results, Yes I reviewed the patient's radiology image, Yes I have reviewed radiologist's interpretation Preliminary Findings: Normal/NAD - Reevaluation(s) Time: 10:07 Reevaluation #1: On reevaluation, patient is breathing much better. Wheezing is resolved. Finds consistent with COPD exacerbation and bronchitis. Patient be discharged on short course of steroids as well as antibiotics. Needs to be consistent with her bronchodilators. Patient was counseled on smoking cessation. Given strict return precautions. Needs to follow-up PCP in 48 hours. Verbalized understanding. Medical Decision Narrative: 45-year-old female presented with some cough and wheezing. Patient does not have any respiratory distress on examination. She does have some wheezing. I do believe symptoms consistent with bronchitis and COPD exacerbation. Patient provided steroids as well as bronchodilators. Work-up initiated. Resp/SOB HPI - General Chief Complaint: Shortness of Breath/Dyspnea Stated Complaint: SOA,cough Time Seen by
[2021-04-09 10:12] VITALS: PULSE 76
[2021-04-09 10:50] VITALS: BP 143/92; PULSE 71; RESP 19; TEMP 37; O2SAT 93
== END 2021-04-09 10:53 | disposition home or self-care (01) ==
PROVIDERS: Emergency Provider Emergency Medicine; PCP Nurse Practitioner Family
DX: L03.116 Cellulitis of left lower limb (principal); J44.1 Chronic obstructive pulmonary disease with (acute) exacerbation; E78.5 Hyperlipidemia, unspecified; F17.210 Nicotine dependence, cigarettes, uncomplicated
CPT/HCPCS: 71045; 80053; 85025; 96374; 99282

== ENCOUNTER → 2021-04-10 12:25 | Outpatient (CLI) | payer OTHER, SELFPAY | PROVIDERS: PCP Nurse Practitioner Family; Visit Provider Nurse Practitioner | DX: Z20.822 Contact with and (suspected) exposure to COVID-19 (principal) | CPT/HCPCS: C9803; U0003; U0005 ==

== ENCOUNTER → 2021-08-15 15:30 | Outpatient (CLI) | payer OTHER, SELFPAY ==
[2021-08-15 18:35] LABS: Basophils % 0.5 % (0.1-2.0); Eosinophils # 0.1 K/mm3 (0.0-0.4); Hematocrit 45.2 % (37.0-47.0); Hemoglobin 15.1 g/dL (12.2-16.2); Lymphocytes # 3.3 K/mm3 (0.7-4.5); Lymphocytes % 36.8 % (10-50); Mean Corpuscular HGB Conc 33.4 g/dL (31.8-35.4); Mean Corpuscular Hemoglobin 31.3 pg (27.0-31.2); Mean Corpuscular Volume 93.5 fl (81-99); Monocytes # 0.4 K/mm3 (0.1-1.0); Monocytes % 4.6 % (1.7-9.3); Neutrophils # 5.1 K/mm3 (1.8-7.8); Neutrophils % 57.2 % (37.0-80.0); Platelet Count 281 K/mm3 (142-424); Red Blood Count 4.83 M/mm3 (4.20-5.40); Red Cell Distribution Width 12.9 % (11.5-17.5); White Blood Count 8.9 K/mm3 (4.8-10.8)
[2021-08-15 19:09] LABS: Alanine Aminotransferase 19 U/L (12-78); Albumin Level 4.2 g/dl (3.5-5.0); Albumin/Globulin Ratio 1.6 (1.1-1.8); Alkaline Phosphatase 114 U/L (38-126); Anion Gap 10.8 mEq/L (5-15); Aspartate Amino Transferase 24 U/L (14-36); Bilirubin,Total 0.6 mg/dl (0.2-1.3); Blood Urea Nitrogen 11 mg/dl (7-17); Calcium 9.3 mg/dl (8.4-10.2); Carbon Dioxide 27 mmol/L (22.0-30.0); Chloride 104 mmol/L (98-107); Chol/HDL Ratio 7.9 (1-3.5); Cholesterol 284 mg/dl (140-200); Estimated Glomerular Filt Rate 90 ml/min (>60); GFR (African American) 109 ML/MIN (>60); Globulin 2.6 g/dL (1.3-3.2); Glucose 91 mg/dl (74-100); HDL Cholesterol 36 mg/dl (40-60); Potassium 3.8 mmoL/L (3.5-5.1); Sodium 138 mmol/L (136-145); Total Protein,Serum 6.8 g/dl (6.3-8.2); Triglycerides 399 mg/dl (30-150); VLDL Cholesterol 80 mg/dL (0-40)
[2021-08-15 19:11] LABS: Hemoglobin A1C 5.3 % (4.0-6.0)
[2021-08-15 19:21] LABS: Direct LDL Cholesterol 143.95 mg/dL (100-129)
[2021-08-15 19:25] LABS: T4 (Thyroxine) 7.2 ug/dl (5.53-11.0)
[2021-08-15 19:38] LABS: Thyroid Stimulating Hormone 0.99 uIU/mL (0.465-4.68)
[2021-08-22 18:10] LABS: Estrogen 1129 pg/mL (.)
== END ==
PROVIDERS: Visit Provider Nurse Practitioner Family
DX: R61 Generalized hyperhidrosis (principal); R73.03 Prediabetes; E78.5 Hyperlipidemia, unspecified; N95.1 Menopausal and female climacteric states
CPT/HCPCS: 80053; 80061; 82672; 83036; 84436; 84443; 85025

== ENCOUNTER → 2021-08-22 08:10 | Outpatient (CLI) | payer OTHER, SELFPAY ==
--- NOTE | 2021-08-22 08:16 | XR_ITS ---
FINAL REPORT CLINICAL HISTORY: soa, patient states hard to breath when laying down, smoker COMPARISON: April 09, 2021 FINDINGS: Two views of the chest were obtained. The heart size and pulmonary vascularity are within normal limits. The mediastinum is normal. No acute pulmonary abnormality is identified. There is no pneumothorax. The bony thorax is intact. IMPRESSION: No active cardiopulmonary disease. Reviewed, Interpreted and Dictated by Pavan Garcia III, MD Transcribed by Peggy Meade Authenticated by Pavan Garcia III, MD on 08/22/2021 10:07:44 AM [facility]
== END ==
PROVIDERS: PCP Nurse Practitioner Family; Visit Provider Nurse Practitioner Family
DX: R06.02 Shortness of breath (principal)
CPT/HCPCS: 71046

== ENCOUNTER 2022-01-18 12:32 | Emergency (ER) | payer OTHER, SELFPAY ==
--- NOTE | 2022-01-18 12:58 | XR_ITS ---
FINAL REPORT CLINICAL HISTORY: pain FINDINGS: RIGHT ELBOW Three views of the right elbow were obtained. There is no acute fracture or dislocation. The joint spaces are intact. The soft tissues are unremarkable. IMPRESSION: No acute bony abnormality. Reviewed, Interpreted and Dictated by Bernardino Aleman MD Transcribed by Kristy Lopez Authenticated and [facility]
--- NOTE | 2022-01-18 12:58 | XR_ITS ---
FINAL REPORT CLINICAL HISTORY: pain FINDINGS: RIGHT WRIST 3 views were obtained. There is no acute fracture or dislocation. The joint spaces are intact. There is no soft tissue abnormality. IMPRESSION: No acute bony abnormality. Reviewed, Interpreted and Dictated by Bernardino Aleman MD Transcribed by Kristy Lopez Authenticated and [facility]
--- NOTE | 2022-01-18 12:58 | XR_ITS ---
FINAL REPORT CLINICAL HISTORY: pain no inj FINDINGS: RIGHT FOREARM 2 views were obtained. There is no acute fracture or dislocation. The joint spaces are intact. There is no soft tissue abnormality. IMPRESSION: No acute bony abnormality. Reviewed, Interpreted and Dictated by Bernardino Aleman MD Transcribed by Kristy Lopez Authenticated and [facility]
--- NOTE | 2022-01-18 12:58 | XR_ITS ---
FINAL REPORT CLINICAL HISTORY: pain no inj FINDINGS: RIGHT SHOULDER 3 views of the right shoulder were obtained. There is no acute fracture or dislocation. Visualized joint spaces are normally aligned. Soft tissues are unremarkable. IMPRESSION: No acute bony abnormality. Reviewed, Interpreted and Dictated by Bernardino Aleman MD Transcribed by Kristy Lopez Authenticated and . [facility]
--- NOTE | 2022-01-18 12:58 | XR_ITS ---
FINAL REPORT CLINICAL HISTORY: pain no inj FINDINGS: RIGHT HUMERUS 2 views were obtained. There is no acute fracture or dislocation. The joint spaces are intact. There is no soft tissue abnormality. IMPRESSION: No acute bony abnormality. Reviewed, Interpreted and Dictated by Bernardino Aleman MD Transcribed by Kristy Lopez Authenticated and [facility]
--- NOTE | 2022-01-18 12:58 | XR_ITS ---
FINAL REPORT CLINICAL HISTORY: pain no inj FINDINGS: RIGHT HAND 3 views were obtained. There is no acute fracture or dislocation. The joint spaces are intact. There is no soft tissue abnormality. IMPRESSION: No acute bony abnormality. Reviewed, Interpreted and Dictated by Bernardino Aleman MD Transcribed by Kristy Lopez Authenticated and [facility]
--- NOTE | 2022-01-18 12:58 | EXP.UTC ---
Discharge Plan Disposition Patient Disposition: Home, Self-Care Condition: Good Prescriptions Prescriptions: New cyclobenzaprine 10 mg Tablet 10 mg PO BID PRN (Reason: Muscle Spasm) Qty: 20 0RF methylprednisolone 4 mg Tablets,Dose Pack 4 mg PO DIRECTED Qty: 21 0RF No Action albuterol sulfate [Ventolin HFA] 90 mcg/actuation HFA aerosol inhaler 1 inh INHALATION QID PRN (Reason: shortness of breath or wheezing) Qty: 8.5 12RF Anoro Ellipta 62.5-25 mcg/actuation blister with device INHALATION estradiol valerate [Delestrogen] 20 mg/mL oil 20 mg IM Q4W rosuvastatin 20 mg tablet 20 mg PO QHS Qty: 30 2RF Referrals Referrals: Hermann Boyer APRN [Primary Care Provider] - Enter time for follow up Geremias King MD [Staff Physician] - Enter time for follow up Activity Restrictions/Add. Instructions Additional Instructions/Restrictions: Rest the extremity. The cyclobenzaprine muscle relaxer will make you drowsy, so don't drive or operate heavy machinery after taking it. It may not help your symptoms much, but it might help you get comfortable so you can sleep. Follow up with Dr. King (orthopedics). put in a referral but you need to call his office and schedule an appointment. Follow up with your regular doctor. GO TO THE ER FOR ANY WORSENING SYMPTOMS Clinical Impressions Clinical Impression: Tendinopathy of right shoulder, Acute pain of right shoulder Instructions Patient Instructions: Shoulder Tendinopathy, DI for Shoulder Pain, Cyclobenzaprine, Methylprednisolone Discharge ED Provider: Aguila Soto [facility] General Stated complaint: RT arm pain Time Seen by Provider: 01/18/22 12:58 History of Present Illness Provider Complaint: She has had right shoulder pain for the past 2 days. At times the pain radiates down her arm. She denies any chest pain. She denies any known injury, Related Data Home Medications Medication Instructions Recorded Confirmed umeclidinium 62.5 mcg-vilanterol inhalation 04/06/21 01/17/22 25 mcg/actuation powdr for inhalation (Anoro Ellipta) estradiol valerate 20 mg/mL 20 mg IM Q4W 06/28/22 08/25/22 intramuscular oil (Delestrogen) Previous Rx's Medication Instructions Recorded albuterol sulfate 90 mcg/actuation 1 inh inhalation QID PRN shortness 09/11/20 aerosol inhaler (Ventolin HFA) of breath or wheezing #8.5 grams rosuvastatin 20 mg tablet 20 mg PO QHS #30 tabs 08/20/21 cyclobenzaprine 10 mg tablet 10 mg PO BID PRN Muscle Spasm #20 01/18/22 tabs methylprednisolone 4 mg tablets in 4 mg PO DIRECTED #21 tabs 01/18/22 a dose pack Allergies Allergy/AdvReac Type Severity Reaction Status Date / Time Iodinated Contrast Media Allergy Intermediate I-HIVES Verified 01/18/22 13:20 [IODINATED CONTRAST MEDIA - ORAL AND] iodine [IODINE] Allergy Mild Unknown Verified 01/18/22 13:20 allergy reaction oxytocin [From Pitocin] Allergy Unknown Verified 01/18/22 13:20 allergy reaction [facility] Medical History Hyperlipidemia Vitamin D deficiency Social History Smoking Status: Current every day smoker tobacco type: cigarettes packs per day: 2 second hand exposure: Yes alcohol intake: never substance use type: denies use current occupational status: other household members: family housing: house current occupational exposures/hazards: No caffeine: Yes ROS Obtained: Yes All systems reviewed & no additional complaints except as documented Constitutional Constitutional: Denies chills and Denies fever(s) Integumentary/Breasts Skin/Breast: Denies redness, Denies rash and Denies wounds Neurologic Neurologic: Denies paresthesias Physical Exam General General appearance: alert and in no apparent distress Head Head exam: atraumatic, normocephalic and normal inspe
[2022-01-18 13:10] VITALS: BP 148/88; PULSE 71; RESP 16; TEMP 37; O2SAT 96; BMI 24.9
[2022-01-18 14:22] VITALS: BP 148/88; PULSE 71; RESP 16; TEMP 37
== END 2022-01-18 14:25 | disposition home or self-care (01) ==
PROVIDERS: Emergency Provider Nurse Practitioner Family; PCP Nurse Practitioner Family
DX: M75.31 Calcific tendinitis of right shoulder (principal); M79.601 Pain in right arm; E78.5 Hyperlipidemia, unspecified; R06.02 Shortness of breath; M62.838 Other muscle spasm; E55.9 Vitamin D deficiency, unspecified; F17.210 Nicotine dependence, cigarettes, uncomplicated; Z79.51 Long term (current) use of inhaled steroids; Z79.52 Long term (current) use of systemic steroids; Z79.890 Hormone replacement therapy; Z79.899 Other long term (current) drug therapy; Z88.8 Allergy status to other drugs, medicaments and biological substances; Z91.041 Radiographic dye allergy status
CPT/HCPCS: 73030; 73060; 73080; 73090; 73110; 73130; 99213; G0463

== ENCOUNTER 2022-02-11 08:52 | Emergency (ER) | payer OTHER, SELFPAY ==
[2022-02-11 09:13] VITALS: BP 112/73; PULSE 83; RESP 16; TEMP 36.7; O2SAT 97; BMI 24.1
--- NOTE | 2022-02-11 09:18 | EXP.UTC ---
Discharge Plan Disposition Patient Disposition: Home, Self-Care Condition: Good Prescriptions Prescriptions: New cefdinir 300 mg capsule 300 mg PO BID Qty: 20 0RF guaifenesin [Mucinex] 600 mg tablet extended release 12hr 600 mg PO BID PRN (Reason: cough) Qty: 20 0RF prednisone 20 mg tablet 20 mg PO BID Qty: 10 0RF albuterol sulfate [Proventil HFA] 90 mcg/actuation HFA aerosol inhaler 1 inh inhalation Q6H PRN (Reason: shortness of breath or wheezing) Qty: 8.5 0RF No Action estradiol valerate [Delestrogen] 20 mg/mL oil 20 mg IM Q4W Referrals Follow up/Referrals: Hermann Boyer APRN [Primary Care Provider] - See instructions Activity Restrictions/Add. Instructions Additional Instructions/Restrictions: Start antibiotic today. Be sure to complete entire prescription even if feeling better Monitor temp. Tylenol every 4 hours as needed and / or ibuprofen every 6 hours as needed ( As long as your primary care physician has told you that it ok to take both. For fever/aches/pains ER if no less than 101 despite Tylenol or Motrin Humidifier/vaporizer or hot steamy shower Inhaler every 4-6 hours as needed like we discussed. If unsure how to use it, ask pharmacist to demonstrate how. Should help open airways and improve cough, wheezing, and shortness of breath Mucinex during the day for your cough Be sure to drink lots of water. *Start steroid today. Helps with inflammation therefore, cough and wheezing. Follow directions on the package. Reviewed side effects. Patient reports taking them before. Follow up IMMEDIATELY for new or worsening of symptoms OR no noticeable improvement over the next 48-72 hours. 911 immediately for any life threatening symptoms such as chest pain or difficulty breathing Clinical Impressions Clinical Impression: Bronchitis, Sinusitis Instructions Patient Instructions: Acute Bronchitis, DI for Sinusitis Discharge ED Provider: Sera Ortiz [facility] General Stated complaint: lung pain,lower back pain Mode of Arrival: Ambulatory Source of Information: Patient Limitations: No Limitations Time Seen by Provider: 02/11/22 09:18 Description of Symptoms (Recalled from Triage Doc. by RN): pt comes in with c/o lung pain, lower back pain, upset stomach, cough, fatigue, nast taste in mouth. symptoms began a few days agoy HEENT Symptoms (Recalled from RN notes): Yes Resp Symptoms (Recalled from RN notes): Yes Skin Symptoms (Recalled from RN notes): No MS Symptoms (Recalled from RN notes): No Functional Status (Recalled from RN notes): n/a History of Present Illness Provider Complaint: Patient states that she is an everyday smoker States that she has been having pain in her lungs when she coughs and at times she is able to cough up some thick mucous States that she has been having achy like feeling in her lower back thinks it may be from coughing States she has been having scratchy throat achy and bad taste in her mouth from the drainage States that today she was still not feeling any better so she came Related Data Home Medications Medication Instructions Recorded Confirmed estradiol valerate 20 mg/mL 20 mg IM Q4W control 11/20/21 02/11/22 intramuscular oil (Delestrogen) Previous Rx's Medication Instructions Recorded albuterol sulfate 90 mcg/actuation 1 inh inhalation Q6H PRN shortness 02/11/22 aerosol inhaler (Proventil HFA) of breath or wheezing #8.5 grams cefdinir 300 mg capsule 300 mg PO BID #20 caps 02/11/22 guaifenesin 600 mg tablet, 600 mg PO BID PRN cough #20 tabs 02/11/22 extended release 12 hr (Mucinex) prednisone 20 mg tablet 20 mg PO BID #10 tabs 02/11/22 Allergies Allergy/AdvReac Type Severity Reaction Status Date / Time Iodinated Contrast Media Allergy Intermediate I-HIVES Verified 02/11/22 09:16 [IODINATED CONTRAST MEDIA - ORAL AND] iodine [IODINE] Allergy Mild Unknown Verified 02/11/22 09:16 all
[2022-02-11 09:29] LABS: UTC Strep Screen (Rapid) Negative (Negative)
[2022-02-11 09:35] VITALS: BP 112/73; PULSE 83; RESP 16; TEMP 36.7
[2022-02-11 09:44] LABS: Apearance,Urine Clear (Clear); Bilirubin,Urine Negative (Negative); Blood, Urine Trace (Negative); Color,Urine Dark Yellow (Yellow); Glucose,Urine (UA) Negative (Negative); Ketones,Urine Negative (Negative); Protein,Urine Negative (Negative); UTC Leukocyte Esterase,Urine Negative (Negative); Urobilinogen,Urine 1 EU/dl (0.2)
[2022-02-11 09:45] LABS: UTC Nitrate,Urine Negative (Negative)
== END 2022-02-11 09:38 | disposition home or self-care (01) ==
PROVIDERS: Emergency Provider Nurse Practitioner; PCP Nurse Practitioner Family
DX: U07.1 COVID-19 (principal); R06.02 Shortness of breath; M54.50 Low back pain, unspecified; J02.9 Acute pharyngitis, unspecified; E78.5 Hyperlipidemia, unspecified; E55.9 Vitamin D deficiency, unspecified; Z79.51 Long term (current) use of inhaled steroids; Z79.52 Long term (current) use of systemic steroids; Z79.890 Hormone replacement therapy; Z79.899 Other long term (current) drug therapy; Z91.041 Radiographic dye allergy status; Z91.040 Latex allergy status; Z88.8 Allergy status to other drugs, medicaments and biological substances
CPT/HCPCS: 81003; 87880; 99213; C9803; G0463; U0003; U0005

== ENCOUNTER → 2022-04-09 10:27 | Outpatient (CLI) | payer OTHER, SELFPAY ==
--- NOTE | 2022-04-09 10:30 | MM_ITS ---
PROCEDURE INFORMATION: Exam: MG Bilateral Screening 3D Mammography Exam date and time: 04/09/2022 10:30 AM Age: 46 years old Clinical indication: Screening. Her mother had breast cancer at age 63. TECHNIQUE: Imaging protocol: Bilateral Screening tomosynthesis and 2D mammography including computer-aided detection (CAD) when performed. COMPARISON: 1. MG MM DIG SCREENING MAMM BI W/CAD 04/03/2021 8:24 AM 2. MG MM DIG SCREENING MAMM BI W/CAD 03/28/2020 8:53 AM 3. MG MM DIG SCREENING MAMM BI W/CAD 03/26/2019 8:55 AM 4. MG SCBI MM Dig screening mamm BI w/CAD 03/20/2018 3:26 PM FINDINGS: MAMMOGRAPHY: Breast composition: There are scattered areas of fibroglandular density. Mass: None. Architectural distortion: None. Calcifications: No suspicious calcifications. Asymmetric density: None. Skin thickening: None. Axillary adenopathy: None. IMPRESSION: No mammographic evidence of malignancy. Annual screening is recommended unless otherwise clinically indicated. ASSESSMENT: BI-RADS Category 1: Negative
== END ==
PROVIDERS: PCP Nurse Practitioner Family; Visit Provider Obstetrics & Gynecology
DX: Z12.31 Encounter for screening mammogram for malignant neoplasm of breast (principal)
CPT/HCPCS: 77063; 77067

== ENCOUNTER → 2022-10-10 09:15 | Outpatient (CLI) | payer OTHER, SELFPAY | PROVIDERS: PCP Nurse Practitioner Family; Visit Provider Nurse Practitioner Family | DX: R51.9 Headache, unspecified (principal) ==

== ENCOUNTER → 2022-10-10 13:08 | Outpatient (CLI) | payer OTHER, SELFPAY ==
[2022-10-10 14:45] LABS: Basophils # 0.1 K/mm3 (0-0.2); Basophils % 0.6 % (0.1-2.0); Eosinophils # 0.1 K/mm3 (0.0-0.4); Eosinophils % 1.2 % (0.1-12.0); Hematocrit 46.6 % (37.0-47.0); Hemoglobin 15.3 g/dL (12.2-16.2); Lymphocytes # 2.4 K/mm3 (0.7-4.5); Lymphocytes % 22.6 % (10-50); Mean Corpuscular HGB Conc 32.9 g/dL (31.8-35.4); Mean Corpuscular Hemoglobin 31.8 pg (27.0-31.2); Mean Corpuscular Volume 96.7 fl (81-99); Monocytes # 0.4 K/mm3 (0.1-1.0); Monocytes % 4.2 % (1.7-9.3); Neutrophils # 7.5 K/mm3 (1.8-7.8); Neutrophils % 71.5 % (37.0-80.0); Platelet Count 325 K/mm3 (142-424); Red Blood Count 4.81 M/mm3 (4.20-5.40); Red Cell Distribution Width 12.8 % (11.5-17.5); White Blood Count 10.5 K/mm3 (4.8-10.8)
[2022-10-10 14:57] LABS: Alanine Aminotransferase 17 U/L (12-78); Albumin/Globulin Ratio 1.4 (1.1-1.8); Alkaline Phosphatase 131 U/L (38-126); Anion Gap 17.1 mEq/L (5-15); Aspartate Amino Transferase 28 U/L (14-36); Bilirubin,Total 1.2 mg/dl (0.2-1.3); Blood Urea Nitrogen 7 mg/dl (7-17); Calcium 9.2 mg/dl (8.4-10.2); Carbon Dioxide 24 mmol/L (22.0-30.0); Chloride 100 mmol/L (98-107); Chol/HDL Ratio 6.1 (1-3.5); Cholesterol 255 mg/dl (140-200); Estimated Glomerular Filt Rate 108 ml/min (>60); GFR (African American) 130 ML/MIN (>60); Globulin 2.9 g/dL (1.3-3.2); Glucose 77 mg/dl (74-100); HDL Cholesterol 42 mg/dl (40-60); Potassium 4.1 mmoL/L (3.5-5.1); Sodium 137 mmol/L (136-145); Total Protein,Serum 6.9 g/dl (6.3-8.2); Triglycerides 262 mg/dl (30-150); VLDL Cholesterol 52 mg/dL (0-40)
[2022-10-10 15:08] LABS: Direct LDL Cholesterol 157.14 mg/dL (100-129)
[2022-10-10 15:13] LABS: Triiodothryronine (T3) Uptake 28 % (23.5-40.5)
[2022-10-10 16:14] LABS: Free Thyroxine Index 2.2 ug/dL (5.93-13.13)
== END ==
PROVIDERS: PCP Nurse Practitioner Family; Visit Provider Nurse Practitioner Family
DX: R73.03 Prediabetes (principal); Z79.899 Other long term (current) drug therapy
CPT/HCPCS: 80053; 80061; 84436; 84443; 84479; 85025

== ENCOUNTER 2022-12-17 10:56 | Emergency (ER) | payer OTHER, SELFPAY ==
[2022-12-17 10:57] VITALS: BP 151/83; PULSE 71; RESP 18; TEMP 36.8; O2SAT 95; BMI 24.2
--- NOTE | 2022-12-17 11:08 | XR_ITS ---
FINAL REPORT CLINICAL HISTORY: twisted foot/ankle, lateral pain, swelling FINDINGS: 3 views of the left foot were obtained. There is no acute fracture or dislocation. The joint spaces are intact. The soft tissues are unremarkable. IMPRESSION: No acute process. Reviewed, Interpreted and Dictated by Heidy Hastings MD Transcribed by Vijay Mireles Authenticated and [facility]
--- NOTE | 2022-12-17 11:08 | XR_ITS ---
FINAL REPORT CLINICAL HISTORY: twisted foot/ankle, lateral pain, swelling FINDINGS: LEFT ANKLE: Three views of the left ankle were obtained. There is no acute fracture or dislocation. The joint spaces and mortise are intact. There is no soft tissue abnormality. IMPRESSION: No acute process. Reviewed, Interpreted and Dictated by Heidy Hastings MD Transcribed by Vijay Mireles Authenticated and [facility]
--- NOTE | 2022-12-17 11:24 | EXP.UTC ---
Discharge Plan Disposition Patient Disposition: Home, Self-Care Condition: Good Prescriptions Prescriptions: New ibuprofen [ibuprofen] 600 mg tablet 600 mg PO Q6HP PRN (Reason: Mild Pain) Qty: 30 0RF No Action rosuvastatin 20 mg tablet 20 mg PO QHS Qty: 30 2RF estradiol 1 mg tablet 1 mg PO DAILY Qty: 30 5RF albuterol sulfate [Proventil HFA] 90 mcg/actuation HFA aerosol inhaler 1 inh inhalation Q6H PRN (Reason: shortness of breath or wheezing) Qty: 8.5 0RF Referrals Follow up/Referrals: Kalyan Otero MD [Primary Care Provider] - See instructions Louisa Rodriguez DPM [Staff Physician] - See instructions Activity Restrictions/Add. Instructions Additional Instructions/Restrictions: Rest the extremity, apply ice for 15 minutes as tolerated three or four times per day, Elevate the extremity as tolerated while you are resting. Take ibuprofen for pain. I sent in a prescription to your pharmacy. Follow up with Dr. Rodriguez (podiatry). I put in a referral but you need to call her office and schedule an appointment. Follow up with your regular doctor. GO TO THE ER FOR ANY WORSENING SYMPTOMS Clinical Impressions Clinical Impression: Sprain of left foot, Left ankle sprain Instructions Patient Instructions: How to Use Crutches, DI for Ankle Sprain, DI for Foot Sprain Discharge ED Provider: Aguila Soto [facility] General Stated complaint: [id number], Lt ankle pain Mode of Arrival: Wheelchair Source of Information: Patient Limitations: No Limitations Time Seen by Provider: 12/17/22 11:24 Description of Symptoms (Recalled from Triage Doc. by RN): States she twisted her left ankle and foot yesterday. HEENT Symptoms (Recalled from RN notes): No Resp Symptoms (Recalled from RN notes): No Skin Symptoms (Recalled from RN notes): No MS Symptoms (Recalled from RN notes): Yes Functional Status (Recalled from RN notes): wnl History of Present Illness Provider Complaint: She states that she twisted her left foot and ankle while walking in her yard yesterday. She c/o left foot and ankle pain. She denies other injury. Related Data Previous Rx's Medication Instructions Recorded albuterol sulfate 90 mcg/actuation 1 inh inhalation Q6H PRN shortness 02/11/22 aerosol inhaler (Proventil HFA) of breath or wheezing #8.5 grams rosuvastatin 20 mg tablet 20 mg PO QHS #30 tabs 10/14/22 estradiol 1 mg tablet 1 mg PO DAILY #30 tabs 12/05/22 ibuprofen 600 mg tablet 600 mg PO Q6HP PRN Mild Pain #30 12/17/22 tabs Allergies Allergy/AdvReac Type Severity Reaction Status Date / Time Iodinated Contrast Media Allergy Intermediate I-HIVES Verified 12/05/22 09:59 [IODINATED CONTRAST MEDIA - ORAL AND] iodine [IODINE] Allergy Mild Unknown Verified 12/05/22 09:59 allergy reaction oxytocin [From Pitocin] Allergy Unknown Verified 12/05/22 09:59 allergy reaction povidone-iodine Allergy Verified 12/05/22 09:59 [From Betadine] Worker's Comp Is this a Worker's Comp case?: No PFS PFS Disclaimer: The information contained in this section may have been updated after the patient was seen, as this information can be updated by other users. Medical History Hyperlipidemia Vitamin D deficiency Surgical History History of hysterectomy History of throat surgery Hx laparoscopic cholecystectomy Hx of appendectomy Hx of section Hx of colonoscopy Family History Mother Cancer Social History Smoking Status: Current every day smoker tobacco type: cigarettes packs per day: 2 second hand exposure: Yes alcohol intake: never substance use type: denies use current occupational status: other Travel in the last 8 weeks: Inside the [employer] household
[2022-12-17 12:20] VITALS: BP 151/83; PULSE 71; RESP 18; TEMP 36.8; O2SAT 95
== END 2022-12-17 12:21 | disposition home or self-care (01) ==
PROVIDERS: Emergency Provider Nurse Practitioner Family; PCP Emergency Medicine
DX: S93.402A Sprain of unspecified ligament of left ankle, initial encounter (principal); S93.602A Unspecified sprain of left foot, initial encounter; F17.210 Nicotine dependence, cigarettes, uncomplicated; E78.5 Hyperlipidemia, unspecified; E55.9 Vitamin D deficiency, unspecified; X50.1XXA Overexertion from prolonged static or awkward postures, initial encounter
CPT/HCPCS: 73610; 73630; 99212; 99214; G0463

== ENCOUNTER → 2023-04-15 16:15 | Outpatient (CLI) | payer OTHER, SELFPAY ==
--- NOTE | 2023-04-15 16:15 | MM_ITS ---
PROCEDURE INFORMATION: Exam: MG Bilateral Screening 3D Mammography Exam date and time: 04/15/2023 4:03 PM Age: 47 years old Clinical indication: Screening examination TECHNIQUE: Imaging protocol: Bilateral Screening tomosynthesis and 2D mammography including computer-aided detection (CAD) when performed. COMPARISON: 1. MG MM DIG SCREENING MAMM BI W/CAD 04/09/2022 10:30 AM 2. MG MM DIG SCREENING MAMM BI W/CAD 04/03/2021 8:24 AM FINDINGS: MAMMOGRAPHY: Breast composition: There are scattered areas of fibroglandular density. Mass: None. Architectural distortion: None. Calcifications: No suspicious calcifications. Asymmetric density: None. Skin thickening: None. Axillary adenopathy: None. IMPRESSION: No mammographic evidence of malignancy. Annual screening is recommended unless otherwise clinically indicated. ASSESSMENT: BI-RADS Category 1: Negative
== END ==
PROVIDERS: PCP Emergency Medicine; Visit Provider Obstetrics & Gynecology
DX: Z12.31 Encounter for screening mammogram for malignant neoplasm of breast (principal)
CPT/HCPCS: 77063; 77067

== ENCOUNTER 2023-07-11 11:55 | Emergency (ER) | payer OTHER, SELFPAY ==
[2023-07-11 12:30] VITALS: BP 146/98; PULSE 63; RESP 18; TEMP 36.5; O2SAT 99; BMI 27.4
--- NOTE | 2023-07-11 12:50 | ED_ITS ---
Discharge Plan Disposition Patient Disposition: Home, Self-Care Condition: Good Prescriptions Prescriptions: New albuterol sulfate [Proventil HFA] 90 mcg/actuation HFA aerosol inhaler 1 - 2 inh inhalation Q4-6H PRN (Reason: shortness of breath or wheezing) Qty: 8.5 0RF doxycycline hyclate 100 mg capsule 100 mg PO BID Qty: 20 0RF promethazine-DM 6.25-15 mg/5 mL syrup 5 ml PO Q6H PRN (Reason: cough) Qty: 118 0RF methylprednisolone [Medrol ([place])] 4 mg tablets,dose pack See Rx Instructions .Route .COMPLEX 6 Days Qty: 21 0RF Rx Instructions: taper pack; No Action estradiol 2 mg tablet 2 mg PO DAILY Qty: 30 11RF rosuvastatin 20 mg tablet 20 mg PO QHS Qty: 30 2RF albuterol sulfate [Proventil HFA] 90 mcg/actuation HFA aerosol inhaler 1 inh inhalation Q6H PRN (Reason: shortness of breath or wheezing) Qty: 8.5 0RF Referrals Follow up/Referrals: Provider,Referral, MD [Primary Care Provider] - See instructions Activity Restrictions/Add. Instructions Additional Instructions/Restrictions: * Start antibiotic today. Be sure to complete entire prescription even if feeling better * Monitor temp. Tylenol every 4 hours as needed and / or ibuprofen every 6 hours as needed ( As long as your primary care physician has told you that it ok to take both. For fever/aches/pains ER if no less than 101 despite Tylenol or Motrin * Humidifier/vaporizer or hot steamy shower * Inhaler every 4-6 hours as needed like we discussed. If unsure how to use it, ask pharmacist to demonstrate how. Should help open airways and improve cough, wheezing, and shortness of breath * Mucinex during the day for your cough and cough suppressant only at night. Be sure to drink lots of water. Insurance may not cover a prescriptions for mucinex. Might be cheaper to get 400mg tablets and take 2 tablet in the morning, mid-day and evening with lots of water. *Promethazine DM cough syrup will cause drowsiness. Use only at night. No driving, operating machinery or caring for small children after taking it *Start steroid today. Helps with inflammation therefore, cough and wheezing. Follow directions on the package. Reviewed side effects. Patient reports taking them before. Follow up IMMEDIATELY for new or worsening of symptoms OR no noticeable impro vement over the next 48-72 hours. 911 immediately for any life threatening symptoms such as chest pain or difficulty breathing Clinical Impressions Clinical Impression: Bronchitis, Sinusitis Instructions Patient Instructions: DI for Sinusitis, Sinusitis, Acute Bronchitis Discharge ED Provider: Sera Ortiz [facility] HPI General Stated complaint: loss of taste,runny nose,chills,past fever,cough Mode of Arrival: Ambulatory Source of Information: Patient Limitations: No Limitations Time Seen by Provider: 07/11/23 12:50 Description of Symptoms (Recalled from Triage Doc. by RN): PATIENT C/O SOA AND NO TASTE/SMELL SINCE FRIDAY HEENT Symptoms (Recalled from RN notes): Yes Resp Symptoms (Recalled from RN notes): Yes Skin Symptoms (Recalled from RN notes): No MS Symptoms (Recalled from RN notes): No Functional Status (Recalled from RN notes): WNL History of Present Illness Provider Complaint: Patient states that she is an everyday smoker of 2+ packs with hx of COPD States that for the last week she has been having sinus congestion and pressure and since Friday she has been having cough,, chest congestion loss of taste and smell where her nose is stopped up and feeling a little SOA on and off States that she isnt coughing anything up but thinks she may be getting bronchitis Related Data Previous Rx's Medication Instructions Recorded albuterol sulfate 90 mcg/actuation 1 inh inhalation Q6H PRN shortness 02/11/22 aerosol inhaler (Proventil HFA) of breath or wheezing #8.5 grams rosuvastatin 20 mg tablet 20 mg PO QHS #30 tabs 10/14/22 estradiol 2 mg tablet 2 mg PO DAILY #30 tabs 04/25/23 albuterol sulfate 90 mcg/actuation 1 - 2 inh inhalation Q4-6H PRN 07/11/23 aerosol inhaler (Proventil HFA) shortness of breath or wheezing #8.5 grams doxycycline hyclate 100 mg capsule 100 mg PO BID #20 caps 07/11/23 methylprednisolone 4 mg tablets in See Rx Instructions .Route 07/11/23 a dose pack (Medrol ([place])) .COMPLEX 6 days #21 tabs promethazine-DM 6.25 mg-15 mg/5 mL 5 ml PO Q6H PRN cough #118 mL 07/11/23 oral syrup Allergies Allergy/AdvReac Type Severity Reaction Status Date / Time Iodinated Contrast Media Allergy Intermediate I-HIVES Verified 04/25/23 08:33 [IODINATED CONTRAST MEDIA - ORAL AND] iodine [IODINE] Allergy Mild Unknown Verified 04/25/23 08:33 allergy reaction oxytocin [From Pitocin] Allergy Unknown Verified 04/25/23 08:33 allergy reaction povidone-iodine Allergy Verified 04/25/23 08:33 [From Betadine] Worker's Comp Is this a Worker's Comp case?: No [facility] Disclaimer: The information contained in this section may have been updated after the patient was seen, as this information can be updated by other users. Medical History (Updated 07/11/23 @ 13:09 by Sera Ortiz APRN) Hyperlipidemia Vitamin D deficiency Surgical History (Updated 04/25/23 @ 09:02 by Noreen Ramos DO) History of hysterectomy History of throat surgery Hx laparoscopic cholecystectomy Hx of appendectomy Hx of section Hx of colonoscopy Family History Mother Cancer Breast, Lung Social History Smoking Status: Current every day smoker tobacco type: cigarettes packs per day: 2 second hand exposure: Yes alcohol intake: never substance use type: denies use current occupational status: other Travel in the last 8 weeks: Inside the [place] household members: family housing: house current occupational exposures/hazards: No caffeine: Yes ROS Obtained: Yes All systems reviewed & no additional complaints except as documented and Yes Systems reviewed as appropriate & no additional complaints except as documented Constitutional Constitutional: Reports system reviewed and no additional complaints, except as documented, Reports as per HPI and Reports headache(s) ENT Ears, Nose, Mouth, and Throat: Reports system reviewed and no additional complaints, except as documented, Reports as per HPI, Reports headache(s), Reports sinus pain and Reports sinus pressure Cardiovascular Cardiovascular: Reports system reviewed and no additional complaints, except as documented and Reports as per HPI Respiratory Respiratory: Reports system reviewed and no additional complaints, except as documented, Reports as per HPI, Reports shortness of breath (at times after coughing), Reports chest congestion and Reports cough Musculoskeletal Musculoskeletal: Reports system reviewed and no additional complaints, except as documented and Reports as per HPI Neurologic Neurologic: Reports headache(s) Physical Exam General General appearance: alert and in no apparent distress ENT ENT exam: Present mucous membranes moist Expanded ENT Exam Nose exam: Present sinus tenderness Throat exam: Present other (Pharyngeal erythema noted with PND) Respiratory Respiratory exam: Present normal lung sounds bilaterally; Absent respiratory distress or wheezes Cardiovascular Cardiovascular exam: Present regular rate, normal rhythm and normal heart sounds Abdominal Exam Abdominal exam: Present soft and normal bowel sounds; Absent distention or tenderness Neurological Exam Neurological exam: Present alert, oriented X3 and normal gait Medical Decision Making Christiano Inquiry Pt receiving controlled substance: No Christiano was queried for this patient: No Vital Signs: 07/11/23 12:30 Temperature 97.7 F Temperature Source Oral Pulse Rate [Left Brachial] 63 Respiratory Rate 18 Blood Pressure [Left Arm] 146/98 H Blood Pressure Mean [Left Arm] 114 Blood Pressure Source [Left Arm] Automatic Cuff Blood Pressure Position [Left Arm] Sitting 02 Sat by Pulse Oximetry 99 Oxygen Delivery Method Room Air Lab Data Lab results reviewed: Yes I reviewed the patient's lab results. Orders (Tests/Meds): ORDERS Category Date Time Status Covid-19 Nasal PCR ([facility]) Routine Lab 07/11/23 12:16 Received
[2023-07-11 13:15] VITALS: BP 146/98; PULSE 63; RESP 18; TEMP 36.5; O2SAT 99
== END 2023-07-11 13:17 | disposition home or self-care (01) ==
PROVIDERS: Emergency Provider Nurse Practitioner
DX: J20.9 Acute bronchitis, unspecified (principal); J01.90 Acute sinusitis, unspecified; R09.81 Nasal congestion; R05.9 Cough, unspecified; R43.9 Unspecified disturbances of smell and taste; J44.9 Chronic obstructive pulmonary disease, unspecified; F17.210 Nicotine dependence, cigarettes, uncomplicated; E78.5 Hyperlipidemia, unspecified
CPT/HCPCS: 87635; 99212; 99214; G0463

== ENCOUNTER 2023-12-25 18:10 | Outpatient (CLI) | payer OTHER, SELFPAY ==
[2023-12-25 18:30] LABS: Basophils # 0.1 K/mm3 (0-0.2); Basophils % 0.6 % (0.1-2.0); Eosinophils # 0.1 K/mm3 (0.0-0.4); Eosinophils % 1.1 % (0.1-12.0); Hematocrit 45.9 % (37.0-47.0); Hemoglobin 15.4 g/dL (12.2-16.2); Lymphocytes # 2.5 K/mm3 (0.7-4.5); Lymphocytes % 29.2 % (10-50); Mean Corpuscular HGB Conc 33.5 g/dL (31.8-35.4); Mean Corpuscular Hemoglobin 32.4 pg (27.0-31.2); Mean Corpuscular Volume 96.9 fl (81-99); Mean Platelet Volume 10.1 fl (7.4-10.4); Monocytes # 0.4 K/mm3 (0.1-1.0); Monocytes % 4.5 % (1.7-9.3); Neutrophils # 5.5 K/mm3 (1.8-7.8); Neutrophils % 64.7 % (37.0-80.0); Platelet Count 280 K/mm3 (142-424); Red Blood Count 4.73 M/mm3 (4.20-5.40); Red Cell Distribution Width 13.5 % (11.5-17.5); White Blood Count 8.6 K/mm3 (4.8-10.8)
[2023-12-25 18:32] LABS: Alanine Aminotransferase 23 U/L (12-78); Albumin Level 4.1 g/dl (3.5-5.0); Albumin/Globulin Ratio 1.4 (1.1-1.8); Alkaline Phosphatase 110 U/L (38-126); Anion Gap 10.6 mEq/L (5-15); Aspartate Amino Transferase 26 U/L (14-36); Bilirubin,Total 0.8 mg/dl (0.2-1.3); Blood Urea Nitrogen 7 mg/dl (7-17); Calcium 9.6 mg/dl (8.4-10.2); Carbon Dioxide 25 mmol/L (22.0-30.0); Chloride 108 mmol/L (98-107); Chol/HDL Ratio 7.4 (1-3.5); Cholesterol 275 mg/dl (140-200); Estimated Glomerular Filt Rate 107 ml/min (>60); GFR (African American) 129 ML/MIN (>60); Glucose 82 mg/dl (74-100); HDL Cholesterol 37 mg/dl (40-60); Potassium 3.6 mmoL/L (3.5-5.1); Sodium 140 mmol/L (136-145); Total Protein,Serum 7.1 g/dl (6.3-8.2); Triglycerides 331 mg/dl (30-150); VLDL Cholesterol 66 mg/dL (0-40)
[2023-12-25 18:43] LABS: Direct LDL Cholesterol 154.17 mg/dL (100-129)
[2023-12-25 18:48] LABS: 25-OH Vitamin D, Total 22.8 ng/mL (30-100)
[2023-12-25 19:03] LABS: Thyroid Stimulating Hormone 1.29 uIU/mL (0.465-4.68)
== END 2023-12-25 23:59 | disposition home or self-care (01) ==
LOC: LAB.DROPOF 18:10
PROVIDERS: PCP Nurse Practitioner Family; Visit Provider Nurse Practitioner Family
DX: J44.1 Chronic obstructive pulmonary disease with (acute) exacerbation (principal); E55.9 Vitamin D deficiency, unspecified; F17.210 Nicotine dependence, cigarettes, uncomplicated
CPT/HCPCS: 80050; 80053; 80061; 82306; 84443; 85025; 87086

== ENCOUNTER 2024-01-02 12:50 | Outpatient (CLI) | payer OTHER, SELFPAY ==
[2024-01-02] MEDS: ALBUTEROL 0.083% 2.5 MG/3 ML NEB IH (13:28)
--- NOTE | 2024-01-02 13:28 | PC.NURSE ---
PFT and 6 Milute walk test completed without incident. Albuterol 0.083% given via HHN, per written protcol, Pt tolerated tx well.
== END 2024-01-02 23:59 | disposition home or self-care (01) ==
LOC: RT 12:51
PROVIDERS: PCP Nurse Practitioner Family; Visit Provider Nurse Practitioner Family
DX: R06.02 Shortness of breath (principal); F17.210 Nicotine dependence, cigarettes, uncomplicated
CPT/HCPCS: 94060; 94618; 94726; 94729; J7613

== ENCOUNTER 2024-01-05 07:55 | Outpatient (CLI) | payer OTHER, SELFPAY ==
--- NOTE | 2024-01-05 07:55 | CA_ITS ---
APPROVED REPORT EXAM: Comprehensive 2D, Doppler, and color-flow Echocardiogram Supervisor Data Processing: Gisella León RVT Ht: 5 ft 4 in Wt: 148lbs BSA: 1.72 BP: 138/94 mmHg Indications: SOA,HTN,HLD,SMOKER,CP 2D Dimensions LA Volume 35.70 mL LA Volume Index 20.76 mL/m2 (M/F) 16-34 M-Mode Dimensions RVDd 2.28 cm (0.9-2.6) LA Diam 3.09 cm (1.9-4.0) LVDd 4.83 cm (3.5-5.7) LVDs 3.32 cm (3.5-5.7) IVSd 0.79 cm (0.6-1.1) PWd 0.54 cm (0.6-1.1) EF (Teich) 58.90% FS 31.30% EDV (Teich) 109.10 mL TAPSE 2.06 (<1.7) ESV (Teich) 44.80 mL LV Diastology E Decel Time 167 (160-240 msec) E/A Ratio 1.5 Aortic Valve MELVIN Index 1.23 cm2/m2 AoV Peak José. 116.0 (50-130 cm/s) AO Peak GR. 5.40 mmHg AO Mean GR. 3.30 (<5 mmHg) AO VTI 28.5 (18-25 cm) MELVIN (VTI) 2.16 (2.5-4.5 cm2) Mitral Valve MV E Max José. 99.0 (40-130 cm/s) MV A Velocity 64.0 (40-130 cm/s) E/A Ratio 1.54 MV PHT 49.0 ms Pulmonary Valve PV Peak Velocity 54.0 (50-150 cm/s) Left Ventricle The left ventricle is normal size. The left ventricular systolic function is borderline reduced. There is normal left ventricular wall thickness. There is borderline hypokinesis of the LV systolic function. The left ventricular diastolic function is normal. LVEF is 50%. Right Ventricle The right ventricle is normal size. The right ventricular systolic function is normal. Atria Left atrium is mildly dilated. The right atrium size is normal. There is no Doppler evidence of interatrial shunt. Aortic Valve The aortic valve opens well. There is no aortic valvular stenosis. No aortic regurgitation is present. Mitral Valve The mitral valve is normal in structure. No evidence of mitral valve stenosis. Trace mitral valve regurgitation noted. Tricuspid Valve The tricuspid valve leaflets are thin and pliable. Trace tricuspid regurgitation. Pulmonic Valve The tricuspid valve leaflets are thin and pliable. Trace pulmonic regurgitation. Great Vessels The aortic root is normal in size. The ascending aorta is not well visualized. IVC is normal in size and collapses >50% with inspiration. Pericardium There is no pericardial effusion. Other Information Study Quality: Fair Conclusion Borderline reduced LV systolic function (LVEF 50%). Mild LA dilation. No significant valvular stenosis or regurgitation. In the setting of borderline reduced LV systolic function, further evaluation with cardiac MRI (cardiomyopathy protocol) is recommended to accurately evaluate LVEF and etiologies of possible cardiomyopathy. Ischemic evaluation is also suggested. Electronically signed by : Mirta Gaines MD 01/06/2024 10:09:37
== END 2024-01-05 23:59 | disposition home or self-care (01) ==
LOC: RT 07:55
PROVIDERS: PCP Nurse Practitioner Family; Visit Provider Nurse Practitioner Family
DX: R07.9 Chest pain, unspecified (principal); R06.02 Shortness of breath
CPT/HCPCS: 93306

== ENCOUNTER 2024-01-06 09:22 | Outpatient (CLI) | payer OTHER, SELFPAY ==
[2024-01-06] VITALS (7 sets, daily range): BP systolic 125–153; BP diastolic 73–92; PULSE 45–65; RESP 18; TEMP 36.6; O2SAT 95–98; BMI 25.1
[2024-01-06] MEDS: diphenhydrAMINE 50MG/ML VIAL 50 MG IV (11:10)
[2024-01-06] MEDS: METHYLPREDNISOLONE SOD SUCC 125MG VIAL 125 MG IV (11:11)
[2024-01-06] MEDS: NITROGLYCERIN 0.4MG SL TABLET 0.8 MG SL (11:31)
--- NOTE | 2024-01-06 11:31 | PC.NURSE ---
1035 Pt has allergy to contrast. Gus Bullock APRN notified by Eber irene Rn and orders were given to pre-medicate with IV Benedryl and Solu-medrol. 1131- Pt to CT room, BP 135/92, Nitro 0.8mg SL given per CTA protocol
--- NOTE | 2024-01-06 11:34 | PC.NURSE ---
5 minutes post nitro 125/78, pt tolerating well
--- NOTE | 2024-01-06 11:38 | PC.NURSE ---
Test complete, VSS, no C/O
--- NOTE | 2024-01-06 11:45 | PC.NURSE ---
To post-op for recovery, no s/s of reaction to contrast at this time. VSS.
[2024-01-06] MEDS: IOPAMIDOL-370 (76%);100ML BOTTLE 85 ML IV (11:47)
[2024-01-06] MEDS: 0.9 % SODIUM CHLORIDE 50 ML VIAL IV (11:47)
[2024-01-06] MEDS: SODIUM CHLORIDE 0.9% 10ML SYR (RAD ONLY) 10 ML IV (11:47)
== END 2024-01-06 12:15 | disposition home or self-care (01) ==
PROVIDERS: PCP Nurse Practitioner Family; Visit Provider Nurse Practitioner Family
DX: R06.02 Shortness of breath (principal); R07.9 Chest pain, unspecified; F17.210 Nicotine dependence, cigarettes, uncomplicated; Z84.89 Family history of other specified conditions
CPT/HCPCS: 75574; J1200; J2919; Q9967

== ENCOUNTER 2024-02-04 09:53 | Outpatient (CLI) | payer OTHER, SELFPAY ==
--- NOTE | 2024-02-04 10:12 | MR_ITS ---
APPROVED REPORT Meat Apprentice: CLINICAL INDICATION Low-normal LV systolic function on TTE (LVEF 50%), evaluate for LVEF on CMR TECHNIQUE Image Acquisition: Cardiac magnetic resonance (CMR) was performed on Siemens Espree MRI 1.5T scanner. Software platform sequences were performed using the Siemens FDTEK MR B19 platform. A set of three-plane, low-resolution, large raiak-af-fxcj localizers were initially acquired. Then axial, coronal, sagittal TrueFISP, as well as axial HASTE images, were obtained. These were followed by gated TrueFISP breathold cinematic sequences obtained in the short axis with 8 mm slices and 2 mm gaps, 2-chamber (vertical long axis), 3-chamber, 4-chamber (horizontal long axis). A bolus of contrast was injected intravenously with first-pass sequences obtained in the short axis and four-chamber planes. After approximately 10 minutes, a TI terrazzo layer helper sequence was performed to determine the optimal TI time. Using the optimized TI time, delayed contrast enhancement segmented inversion???recovery TurboFLASH sequences were obtained in the short axis, 2-chamber, 3-chamber, and 4-chamber projections. 2D-velocity phase mapping was performed. Functional parameters were calculated by offline analysis on an independent workstation ([employer], ON24). Contrast: ProHance??? (Gadoteridol) FINDINGS MORPHOLOGY AND FUNCTION Left ventricle: The left ventricle is normal in size. The indexed left ventricular end-diastolic volume (LVEDVi) is 74 ml/m2 (reference range 57-105 ml/m2 in males, 56-96 ml/m2 in females). Normal left ventricular systolic function is present. There is normal left ventricular wall thickness. There are no regional wall motion abnormalities noted. LVEF is calculated at 53.0% (reference range 57-77%). Right ventricle: The right ventricle is normal in size. The indexed right ventricular end-diastolic volume (RVEDVi) is 74 ml/m2 (reference range 61-121 ml/m2 in males, 48-112 ml/m2 in females). Normal right ventricular systolic function is present. RVEF is calculated at 58.5% (reference range 52-72% in males, 51-71% in females). Atria: The left atrium is normal in size. The maximum indexed left atrial volume is 37 ml/m2 (reference range 26-52 ml/m2 in males, 27-53 ml/m2 in females). The right atrium is normal in size. The maximum indexed right atrial volume is 22 ml/m2 (reference range 18-90 ml/m2). Aorta: The diameter of the aortic annulus is normal, measuring 26 mm (coronal view reference range 21-30 mm in males, 19-27 mm in females). The diameter of the aortic sinus is normal, measuring 31 mm (coronal view reference range 25-42 mm in males, 24-36 mm in females). The diameter of the sinotubular junction is normal, measuring 26 mm (coronal view reference range 18-32 mm in males, 18-28 mm in females). The diameters of the ascending and descending thoracic aorta are normal. Main pulmonary artery: The main pulmonary artery diameter is normal. Pericardium: The pericardial thickness is normal. The pericardial thickness measures 2 mm (normal < 4.0 mm). There is no pericardial effusion. VALVES The valvular morphologies in the visualized sequences appear normal. There is no significant valvular stenosis or regurgitation of the mitral, aortic, tricuspid, or pulmonic valve noted visually. Systolic anterior motion of the mitral valve is not visualized. Ratio of pulmonary to systemic flow, Qp:Qs ratio = 1.0 (normal < or = 1.2, hemodynamically significant shunt > 1.5), demonstrating no evidence of hemodynamically significant shunt. TISSUE CHARACTERIZATION Resting Perfusion: Normal myocardial blood flow at rest. No evidence of resting hypoperfusion. Myocardial Fibrosis and/or edema: Normal gadolinium kinetics are present. No evidence of late gadolinium enhancement is noted, consistent with absence of myocardial scarring, infarction, or necrosis. T2-weighted imaging demonstrates no evidence of myocardial edema or inflammation. OTHER No other significant findings are noted. However, this exam is focused on the cardiac structure and function. IMPRESSION Normal LV size with normal LV systolic function. LVEDVi= 74 ml/m2 and LVEF= 53.0%. Normal RV size with normal RV systolic function. RVEDVi= 74 ml/m2 and RVEF= 58.5%. No atrial enlargement. No CMR evidence of myocardial scarring, infarction, or necrosis. No evidence of myocardial edema or inflammation. Perfusion analysis demonstrates normal blood flow at rest with no evidence of resting hypoperfusion. Ratio of pulmonary to systemic flow, Qp:Qs ratio = 1.0 (normal < or = 1.2, hemodynamically significant shunt > 1.5), demonstrating no evidence of hemodynamically significant shunt. Overall, this CMR demonstrates normal biventricular size and systolic function. No evidence of cardiomyopathy. No evidence of myocardial scarring or infarction. COMPARISON None CRITICAL RESULT None COMMUNICATION Per this written report The findings of this cardiac MR were reviewed, reported, and signed by Rohan Gaines MD (Marketing Technology Coordinator). Conclusion Electronically signed by : Mirta Gaines MD 02/12/2024 01:14:41
[2024-02-04 10:23] LABS: Blood Urea Nitrogen 7 mg/dl (7-17); Estimated Glomerular Filt Rate 89 ml/min (>60); GFR (African American) 108 ML/MIN (>60)
[2024-02-04] MEDS: GADOTERIDOL INJ 20ML SYRINGE 16 ML IV (11:33)
[2024-02-04] MEDS: 0.9 % SODIUM CHLORIDE 50 ML VIAL IV (11:33)
[2024-02-04] MEDS: SODIUM CHLORIDE 0.9% 10ML SYR (RAD ONLY) 10 ML IV (11:33)
== END 2024-02-04 23:59 | disposition home or self-care (01) ==
LOC: RAD 09:54
PROVIDERS: PCP Nurse Practitioner Family; Visit Provider Nurse Practitioner
DX: I42.9 Cardiomyopathy, unspecified (principal); R93.1 Abnormal findings on diagnostic imaging of heart and coronary circulation; R53.83 Other fatigue; F17.210 Nicotine dependence, cigarettes, uncomplicated
CPT/HCPCS: 36415; 75561; 82565; 84520; A9576

== ENCOUNTER 2024-02-16 08:52 | Outpatient (CLI) | payer OTHER, SELFPAY ==
[2024-02-16 19:31] LABS: HIV (1&2) Antibody Rapid NONREACTIVE (NONREACTIVE)
[2024-02-16 20:39] LABS: Chol/HDL Ratio 3.7 (1-3.5); Cholesterol 155 mg/dl (140-200); HDL Cholesterol 42 mg/dl (40-60); Triglycerides 221 mg/dl (30-150); VLDL Cholesterol 44 mg/dL (0-40)
[2024-02-16 21:50] LABS: 25-OH Vitamin D, Total 39.1 ng/mL (30-100)
[2024-02-16 21:56] LABS: Direct LDL Cholesterol 66.57 mg/dL (100-129)
[2024-02-18 09:15] LABS: HBsAg Screen Negative (Negative); HCV Ab Non Reactive (Non Reactive); Hep A Ab, IGM Negative (Negative); Hep B Core Ab, IgM Negative (Negative)
== END 2024-02-16 23:59 | disposition home or self-care (01) ==
LOC: LAB.DROPOF 02-17 10:20
PROVIDERS: PCP Nurse Practitioner Family; Visit Provider Nurse Practitioner Family
DX: R53.83 Other fatigue (principal); Z11.4 Encounter for screening for human immunodeficiency virus [HIV]
CPT/HCPCS: 80061; 80074; 82306; 86803; 87389

== ENCOUNTER 2024-03-08 09:15 | Day surgery (SDC) | payer OTHER, SELFPAY ==
[2024-03-04 16:48] VITALS: BMI 25.2
[2024-03-08 09:55] VITALS: BP 134/93; PULSE 74; RESP 17; TEMP 36.8; O2SAT 97
[2024-03-08] MEDS: LACTATED RINGERS 1000ML 1,000 ML 25 ML IV (10:04)
--- NOTE | 2024-03-08 10:07 | EXP.ANES.CKL ---
[facility] Disclaimer: The information contained in this section may have been updated after the patient was seen, as this information can be updated by other users. Medical History Hyperlipidemia Hypertension History of chest pain H. pylori infection Surgical History Hx of colonoscopy History of throat surgery Hx of appendectomy Hx laparoscopic cholecystectomy Hx of section History of hysterectomy Family History Mother Cancer Breast, Lung Social History (Updated 03/08/24 @ 10:03 by Lowell Folres RN) Smoking Status: Current every day smoker tobacco type: cigarettes packs per day: 2 second hand exposure: Yes alcohol intake: never substance use type: denies use current occupational status: unemployed Travel in the last 8 weeks: None household members: family housing: house current occupational exposures/hazards: No caffeine: Yes [facility] Anesthesia Checklist Patient Identification Patient Identification: Arm Band and Verbal (Name & ) Structural Data Admitted From: Home Planned Operative Procedure/s: Colonoscopy Consent for Planned Operative Procedure(s) Verified: Yes Verified Documents: Surgical Consent and History and Physical NPO Status Verified Time NPO: 06:00 Chart Verification Results Verified: CBC, BMP, ECG and Chest Xray Additional verifications Patient : No Anesthesia Reactions: Yes (hard to wake up) Hx Blood Transfusions: No Cardiovascular Assessment Heart Sounds: S1 & S2 Pulse Rhythm: Irregular Peripheral Edema: No Airway Assessment Mallampati Score:: Class II C-Spine Mobility Assessed: Yes TMJ Mobility Assessed: Yes Dentition: Edentulous Neurological Assessment Level of Consciousness: Awake, Alert, Appropriate and Follows Commands Hx Seizures: No Numbness or tingling in extremities: No Anesthesia Plan Anesthesia Risk discussed: Yes Anesthesia Plan: Verified ASA Class: III Anesthesia Type: MAC
[2024-03-08 10:39] VITALS: O2SAT 99
--- NOTE | 2024-03-08 10:43 | P.HP_ITS ---
History of Present Illness *Admission Date: 03/08/24 *Reason for visit:: Screening/surveillance *History of present illness: Mrs. Holden is a 48-year-old female who is here for follow-up screening/surveillance secondary to a personal history of colon polyps. The examination is deemed medically necessary for colonoscopy. The patient has been seen, interviewed and examined prior to the procedure by both myself and the anesthesia provider. [facility] Disclaimer: The information contained in this section may have been updated after the patient was seen, as this information can be updated by other users. Medical History (Updated 03/08/24 @ 10:44 by Coy Mcfarlane II, MD) Hyperlipidemia Hypertension History of chest pain H. pylori infection Surgical History Hx of colonoscopy History of throat surgery Hx of appendectomy Hx laparoscopic cholecystectomy Hx of section History of hysterectomy Family History Mother Cancer Breast, Lung Social History (Updated 03/08/24 @ 10:03 by Lowell Flores RN) Smoking Status: Current every day smoker tobacco type: cigarettes packs per day: 2 second hand exposure: Yes alcohol intake: never substance use type: denies use current occupational status: unemployed Travel in the last 8 weeks: None household members: family housing: house current occupational exposures/hazards: No caffeine: Yes Other Medical History Have you received the Flu Vaccine for this season: No Have you received the Pneumonia Vaccine: No Review of Systems Review of Systems Review of systems (narrative): Negative *Cardiovascular Comments: Negative *Gastrointestinal Comments: Negative *Genitourinary Comments: Negative *Musculoskeletal Comments: Negative *Neurologic Comments: Negative Meds Home Medications and Allergies Home Medications ?Medication ?Instructions ?Recorded ?Confirmed ?Type estradiol 2 mg tablet 2 mg PO DAILY #30 tabs 04/25/23 03/08/24 Rx albuterol sulfate 90 mcg/actuation 2 puff inhalation Q4-6H PRN 12/25/23 03/08/24 Rx aerosol inhaler shortness of breath or wheezing #8.5 grams ergocalciferol (vitamin D2) 1,250 1,250 mcg PO WEEKLY #9 caps 12/31/23 03/08/24 Rx mcg (50,000 unit) capsule rosuvastatin 20 mg tablet 20 mg PO DAILY #30 tabs 12/31/23 03/08/24 Rx lisinopril 10 mg tablet 10 mg PO DAILY #30 tabs 01/13/24 03/08/24 Rx Dulera 100 mcg-5 mcg/actuation HFA 2 puff inhalation BID #13 grams 02/19/24 03/08/24 Rx aerosol inhaler (mometasone-formoterol) New Prescriptions to Start Prescriptions: Allergies Allergy/AdvReac Type Severity Reaction Status Date / Time Iodinated Contrast Media Allergy Intermediate I-HIVES Verified 03/08/24 09:54 [IODINATED CONTRAST MEDIA - ORAL AND] iodine [IODINE] Allergy Mild Unknown Verified 03/08/24 09:54 allergy reaction oxytocin [From Pitocin] Allergy Unknown Verified 03/08/24 09:54 allergy reaction povidone-iodine Allergy Hives Verified 03/08/24 09:54 [From Betadine] Exam Data for Last 24 hours Vital signs and Labs for Last 24 Hours: Temp Pulse Resp BP Pulse Ox O2 Del Method O2 Flow Rate 98.2 F 74 17 134/93 H 97 Nasal Cannula 5 03/08/24 09:55 03/08/24 09:55 03/08/24 09:55 03/08/24 09:55 03/08/24 09:55 03/08/24 10:39 03/08/24 10:39 *Routine HEENT Exam Head: Present normocephalic Eye: Present EOMI and PERRL ENT: Present mucous membranes moist *Routine Neck Exam Neck: Present supple *Routine Respiratory Exam Respiratory: Present CTA bilaterally *Routine Cardiovascular Exam Cardiovascular: Present RRR *Routine Abdominal Exam Abdominal: Present soft and normoactive bowel sounds; Absent tenderness *Routine Rectal Exam Rectal:: deferred *Routine Genitalia Exam Genitalia:: deferred *Routine Extremities Exam Extremities: Absent cyanosis, clubbing or edema *Routine Skin Exam Skin: Present warm; Absent rash *Routine Neurological Exam Neurological: Present alert and oriented X3 Assessment and Plan *Assessment and plan (1) Personal history of colon polyps, unspecified: Status: Acute Category: Medical Code(s): Z86.0100 - Personal history of colon polyps, unspecified Plan A/P: 1. Personal history of colon polyps is the preprocedural diagnosis. The patient will be anesthetized/sedated using MAC sedation. The patient has been seen and examined. Cardiac and lung assessment prior to the examination is stable. Proceed with planned colonoscopy
[2024-03-08 10:50] VITALS: BP 122/72; PULSE 60; RESP 17; TEMP 37.1; O2SAT 96
--- NOTE | 2024-03-08 10:52 | HMH.PROCNOTE ---
[facility] Procedure Note Date: 03/08/24 Time: 10:52 Procedure Note:: Attempted colonoscopy/Flexible Sigmoidoscopy Procedure Report: Endoscopist: Coy Mcfarlane II, MD Referring physician: IVET Prakash Date of Procedure: February 07, 2024 Equipment: Olympus 180 variable stiffness pediatric colonoscope Sedation: MAC sedation Indication: Mrs. Holden is a 48-year-old female with chronic intractable constipation/outlet dysfunction constipation. She does use MiraLAX with minimal effectiveness. She has long periods of time on the commode straining. She reports bloating and some lower abdominal discomfort. Her last colonoscopy was May 2019 at which time she did have a polyp (tubular adenoma) in the descending colon removed. The patient reports no rectal bleeding, weight loss or family history of colon cancer. The patient did have an EGD with [facility] in May 2020 for dyspepsia and reflux. Procedure: Prior to the procedure, a history and physical exam was performed, and patient's medications and allergies were reviewed. The risks, benefits and alternatives of the sedation and procedure were discussed with the patient. All questions were answered and informed consent was obtained. The patient was brought to the procedure room. Patient identification and proposed procedure were verified by the physician and the nurse. The patient was placed in a left lateral decubitus position and the scope was passed under direct vision. Throughout the procedure, the patient's blood pressure, pulse, and oxygen saturations were monitored continuously. The colonoscopy was accomplished without difficulty. The patient tolerated the procedure well. Findings: On digital rectal examination there was normal rectal tone there were no external hemorrhoids. The scope was then inserted through the anal canal into the rectum and advanced to 30 cm. There was abundant amount of brownish-yellow liquid stool throughout impairing visibility. The preparation was poor and the procedure was aborted. Impression: 1. Poor preparation?procedure aborted Plan: I will discuss this with the patient and family and recommend bowel regimen and determination of whether to repeat colonoscopy.
[2024-03-08 11:00] VITALS: BP 117/73; PULSE 60; RESP 17; TEMP 37.1; O2SAT 96
[2024-03-08 11:10] VITALS: BP 130/78; PULSE 65; RESP 17; O2SAT 98
[2024-03-08 11:20] VITALS: BP 135/82; PULSE 60; RESP 17; O2SAT 99
== END 2024-03-08 11:37 | disposition home or self-care (01) ==
PROVIDERS: PCP Nurse Practitioner Family; Visit Provider Internal Medicine Gastroenterology
PROC: (CPT 45378; principal; 2024-03-08 11:30)
DX: K59.02 Outlet dysfunction constipation (principal); Z86.0100 Personal history of colon polyps, unspecified; Z12.11 Encounter for screening for malignant neoplasm of colon; Z53.8 Procedure and treatment not carried out for other reasons
CPT/HCPCS: 45378; J7120

== ENCOUNTER 2024-03-09 16:25 | Outpatient (CLI) | payer OTHER, SELFPAY ==
--- NOTE | 2024-03-09 16:28 | XR_ITS ---
PROCEDURE INFORMATION: Exam: XR Chest Exam date and time: 03/09/2024 4:31 PM Age: 48 years old Clinical indication: Shortness of breath; Additional info: SOB, life-long smoker, copd, asthma TECHNIQUE: Imaging protocol: Radiologic exam of the chest. Views: 2 views. COMPARISON: CR XR CHEST 2V 08/22/2021 8:21 AM FINDINGS: Lungs: There is a calcified granuloma at the left lung apex. Pleural spaces: No large effusion or pneumothorax. Heart/Mediastinum: No evidence of mediastinal widening or cardiac silhouette enlargement; the mediastinum and heart appear within normal limits for contour and size. Bones/joints: No evidence of acute osseous abnormalities within the visualized portions of the thoracic spine and ribs. Osseous structures appear appropriate for patient age. IMPRESSION: No dense parenchymal consolidation, pleural effusion, or pneumothorax.
== END 2024-03-09 23:59 | disposition home or self-care (01) ==
LOC: RAD 16:26
PROVIDERS: PCP Nurse Practitioner Family; Visit Provider Internal Medicine Pulmonary Disease
DX: R06.02 Shortness of breath (principal)
CPT/HCPCS: 71046

== ENCOUNTER 2024-04-19 08:15 | Outpatient (CLI) | payer OTHER, SELFPAY ==
--- NOTE | 2024-04-19 08:20 | MM_ITS ---
PROCEDURE INFORMATION: Exam: MG Bilateral Screening 3D Mammography Exam date and time: 04/19/2024 8:04 AM Age: 48 years old Clinical indication: Screening exam. TECHNIQUE: Imaging protocol: Bilateral Screening tomosynthesis and 2D mammography including computer-aided detection (CAD) when performed. COMPARISON: 1. MG MM DIG SCREENING MAMM BI W/CAD 04/15/2023 4:03 PM 2. MG MM DIG SCREENING MAMM BI W/CAD 04/09/2022 10:30 AM FINDINGS: MAMMOGRAPHY: Breast composition: There are scattered areas of fibroglandular density. Mass: No suspicious masses. Architectural distortion: None. Calcifications: No suspicious calcifications. Asymmetric density: None. Skin thickening: None. Axillary adenopathy: None. IMPRESSION: No mammographic evidence of malignancy. Annual screening is recommended unless otherwise clinically indicated. ASSESSMENT: BI-RADS Category 1: Negative.
== END 2024-04-19 23:59 | disposition home or self-care (01) ==
LOC: RAD 08:16
PROVIDERS: PCP Nurse Practitioner Family; Visit Provider Obstetrics & Gynecology
DX: Z12.31 Encounter for screening mammogram for malignant neoplasm of breast (principal)
CPT/HCPCS: 77063; 77067

== ENCOUNTER 2024-06-07 16:53 | Outpatient (CLI) | payer OTHER, SELFPAY ==
[2024-06-11 07:10] LABS: D001-IgE D pteronyssinus 0.51 kU/L (Class I); D002-IgE D farinae 0.44 kU/L (Class I); E001-IgE Cat Dander <0.10 kU/L (Class 0); E005-IgE Dog Dander <0.10 kU/L (Class 0); E072-IgE Mouse Urine <0.10 kU/L (Class 0); G002-IgE Bermuda Grass <0.10 kU/L (Class 0); G006-IgE Timothy Grass <0.10 kU/L (Class 0); Immunoglobulin E, Total 306 IU/mL (6-495); M001-IgE Penicillium chrysogen <0.10 kU/L (Class 0); M002-IgE Cladosporium herbarum <0.10 kU/L (Class 0); M003-IgE Aspergillus fumigatus <0.10 kU/L (Class 0); M006-IgE Alternaria alternata <0.10 kU/L (Class 0); T001-IgE Maple/Box Elder <0.10 kU/L (Class 0); T003-IgE Common Silver Birch <0.10 kU/L (Class 0); T006-IgE Cedar, Mountain <0.10 kU/L (Class 0); T007-IgE Oak, White <0.10 kU/L (Class 0); T008-IgE Elm, American <0.10 kU/L (Class 0); T010-IgE Walnut <0.10 kU/L (Class 0); T011-IgE Maple Leaf Sycamore <0.10 kU/L (Class 0); T014-IgE Cottonwood <0.10 kU/L (Class 0); T015-IgE Ash, White <0.10 kU/L (Class 0); T022-IgE Pecan, Hickory <0.10 kU/L (Class 0); T070-IgE White Mulberry <0.10 kU/L (Class 0); W001-IgE Ragweed, Short <0.10 kU/L (Class 0); W011-IgE Thistle, Russian <0.10 kU/L (Class 0); W014-IgE Pigweed, Common <0.10 kU/L (Class 0); W018-IgE Sheep Sorrel <0.10 kU/L (Class 0)
[2024-06-22 21:11] LABS: Alpha-1-Antitrypsin 147 mg/dL (101-187); Phenotype (PI) FM (.)
== END 2024-06-07 23:59 | disposition home or self-care (01) ==
LOC: LAB 16:54
PROVIDERS: PCP Nurse Practitioner Family; Visit Provider Internal Medicine Pulmonary Disease
DX: J30.9 Allergic rhinitis, unspecified (principal); J44.9 Chronic obstructive pulmonary disease, unspecified
CPT/HCPCS: 36415; 82103; 82104; 82785; 86003

== ENCOUNTER 2024-06-09 14:15 | Outpatient (CLI) | payer OTHER, SELFPAY ==
--- NOTE | 2024-06-09 14:19 | CT_ITS ---
FINAL REPORT TECHNIQUE: Axial CT without IV contrast administration. This study was performed with techniques to keep radiation doses as low as reasonably achievable, (ALARA). Individualized dose reduction techniques using automated exposure control or adjustment of mA and/or kV according to the patient's size were employed. CLINICAL HISTORY: COPD COMPARISON: None FINDINGS: No suspicious pulmonary nodule. Underlying emphysema is noted. There is no evidence of pneumonia. No adenopathy or effusion. IMPRESSION: Emphysematous changes without acute lung disease or suspicious pulmonary lesion. Reviewed, Interpreted and Dictated by Heidy Hastings MD Transcribed by Ama Gasca Authenticated and [facility]
[2024-06-09] MEDS: ALBUTEROL 0.083% 2.5 MG/3 ML NEB IH (14:49)
--- NOTE | 2024-06-09 14:49 | PC.NURSE ---
Pre and Post Spirometry completed without incident. Albuterol 0.083% given via HHN, per written protocol, Pt tolerated tx well.
== END 2024-06-09 23:59 | disposition home or self-care (01) ==
LOC: RAD 14:16
PROVIDERS: PCP Nurse Practitioner Family; Visit Provider Internal Medicine Pulmonary Disease
DX: R91.8 Other nonspecific abnormal finding of lung field (principal); J44.9 Chronic obstructive pulmonary disease, unspecified
CPT/HCPCS: 71250; 94060; J7613

== ENCOUNTER 2024-07-15 07:04 | Day surgery (SDC) | payer OTHER, SELFPAY ==
[2024-07-13 14:44] VITALS: BMI 25.2
[2024-07-15 07:58] VITALS: BP 135/77; PULSE 71; RESP 18; TEMP 36.6; O2SAT 99
[2024-07-15] MEDS: LACTATED RINGERS 1000ML 1,000 ML 50 ML IV (08:03)
--- NOTE | 2024-07-15 08:54 | EXP.ANES.CKL ---
[facility] Disclaimer: The information contained in this section may have been updated after the patient was seen, as this information can be updated by other users. Medical History Asthma History of asthma Family history of asthma Tobacco abuse counseling COPD mixed type Hyperlipidemia Hypertension History of chest pain H. pylori infection Surgical History Hx of colonoscopy History of throat surgery Hx of appendectomy Hx laparoscopic cholecystectomy Hx of section History of hysterectomy Family History Mother Cancer Breast, Lung Social History Smoking Status: Current every day smoker tobacco type: cigarettes packs per day: 2 second hand exposure: Yes alcohol intake: never substance use type: denies use current occupational status: unemployed Travel in the last 8 weeks: None household members: family housing: house current occupational exposures/hazards: No caffeine: Yes Have you lived/traveled outside [place] in past 30 days?: No Contact w/someone who lives/traveled outside [place] past 30 days?: No Exposure to someone with infectious disease in past 14 days?: No Do you have a fever (greater than 100.4 F or 38 C)?: No Have you tested positive for COVID-19: No Exposed to someone with COVID-19 in past 14 days?: No Do you have a sore throat?: No Do you have a cough?: No Do you have any weakness?: No Do you have any diarrhea?: No Are you experiencing any unusual bleeding?: No Do you have any muscle aches/pain?: No Do you have any abdominal pain?: No Are you experiencing loss of taste or smell?: No [facility] Anesthesia Checklist Patient Identification Patient Identification: Verbal (Name & ) Structural Data Admitted From: Home Planned Operative Procedure/s: colonoscopy Consent for Planned Operative Procedure(s) Verified: Yes NPO Status Verified Time NPO: 00:00 Additional verifications Anesthesia Reactions: Yes (hard to wake up) Hx Blood Transfusions: No Airway Assessment Mallampati Score:: Class II C-Spine Mobility Assessed: Yes TMJ Mobility Assessed: Yes Dentition: Edentulous Neurological Assessment Level of Consciousness: Awake, Alert and Appropriate Anesthesia Plan Anesthesia Risk discussed: Yes Anesthesia Plan: Verified ASA Class: II Anesthesia Type: MAC
--- NOTE | 2024-07-15 08:55 | EXP.HP ---
History of Present Illness *Admission Date: 07/15/24 *Reason for visit:: Chronic intractable constipation and lower abdominal discomfort *History of present illness: Mrs. Holden is a 48-year-old female with chronic intractable constipation/outlet dysfunction constipation. She does use MiraLAX with minimal effectiveness. She has long periods of time on the commode straining. She reports bloating and some lower abdominal discomfort. Her last colonoscopy was May 2019 at which time she did have a polyp (tubular adenoma) in the descending colon removed. The patient reports no rectal bleeding, weight loss or family history of colon cancer. The patient did have an EGD with me in May 2020 for dyspepsia and reflux. [facility] Disclaimer: The information contained in this section may have been updated after the patient was seen, as this information can be updated by other users. Medical History (Updated 07/15/24 @ 08:57 by Coy Mcfarlane II, MD) Asthma History of asthma Family history of asthma Tobacco abuse counseling COPD mixed type Hyperlipidemia Hypertension History of chest pain H. pylori infection Surgical History Hx of colonoscopy History of throat surgery Hx of appendectomy Hx laparoscopic cholecystectomy Hx of section History of hysterectomy Family History Mother Cancer Breast, Lung Social History Smoking Status: Current every day smoker tobacco type: cigarettes packs per day: 2 second hand exposure: Yes alcohol intake: never substance use type: denies use current occupational status: unemployed Travel in the last 8 weeks: None household members: family housing: house current occupational exposures/hazards: No caffeine: Yes Have you lived/traveled outside [place] in past 30 days?: No Contact w/someone who lives/traveled outside US past 30 days?: No Exposure to someone with infectious disease in past 14 days?: No Do you have a fever (greater than 100.4 F or 38 C)?: No Have you tested positive for COVID-19: No Exposed to someone with COVID-19 in past 14 days?: No Do you have a sore throat?: No Do you have a cough?: No Do you have any weakness?: No Do you have any diarrhea?: No Are you experiencing any unusual bleeding?: No Do you have any muscle aches/pain?: No Do you have any abdominal pain?: No Are you experiencing loss of taste or smell?: No Other Medical History Have you received the Flu Vaccine for this season: No Have you received the Pneumonia Vaccine: Yes Review of Systems Review of Systems Review of systems (narrative): Negative *Cardiovascular Comments: Negative *Gastrointestinal Comments: Negative *Genitourinary Comments: Negative *Musculoskeletal Comments: Negative *Neurologic Comments: Negative Meds Home Medications and Allergies Home Medications ?Medication ?Instructions ?Recorded ?Confirmed ?Type albuterol sulfate 90 mcg/actuation 2 puff inhalation Q4-6H PRN 12/25/23 07/15/24 Rx aerosol inhaler shortness of breath or wheezing #8.5 grams estradiol 2 mg tablet 2 mg PO DAILY #30 tabs 05/07/24 07/15/24 Rx mometasone-formoterol HFA 100 2 puff inhalation BID 90 days #13 06/16/24 07/15/24 Rx mcg-5 mcg/actuation aerosol grams inhaler (Dulera) ergocalciferol (vitamin D2) 1,250 1,250 mcg PO WEEKLY #9 caps 07/01/24 07/15/24 Rx mcg (50,000 unit) capsule lisinopril 10 mg tablet 10 mg PO DAILY BP #90 tabs 07/01/24 07/15/24 Rx rosuvastatin 20 mg tablet 20 mg PO DAILY Cholesterol #90 tabs 07/01/24 07/15/24 Rx New Prescriptions to Start Prescriptions: Allergies Allergy/AdvReac Type Severity Reaction Status Date / Time Iodinated Contrast Media Allergy Intermediate I-HIVES Verified 07/15/24 07:56 (IODINATED CONTRAST MEDIA - ORAL AND) iodine (IODINE) Allergy Mild Unknown Verified 07/15/24 07:56 allergy reaction oxytocin (From Pitocin) Allergy Unknown Verified 07/15/24 07:56 allergy reaction povidone-iodine (From Allergy Hives Verified 07/15/24 07:56 Betadine) Exam Data for Last 24 hours Vital signs and Labs for Last 24 Hours: Temp Pulse Resp BP Pulse Ox O2 Del Method 97.8 F 71 18 135/77 99 Room Air 07/15/24 07:58 07/15/24 07:58 07/15/24 07:58 07/15/24 07:58 07/15/24 07:58 07/15/24 07:58 I & O for Last 24 hours: Intake & Output 07/12/24 07/13/24 07/14/24 07/15/24 23:59 23:59 23:59 23:59 Weight 147 lb *Routine HEENT Exam Head: Present normocephalic Eye: Present EOMI and PERRL ENT: Present mucous membranes moist *Routine Neck Exam Neck: Present supple *Routine Respiratory Exam Respiratory: Present CTA bilaterally *Routine Cardiovascular Exam Cardiovascular: Present RRR *Routine Abdominal Exam Abdominal: Present soft and normoactive bowel sounds; Absent tenderness *Routine Rectal Exam Rectal:: deferred *Routine Genitalia Exam Genitalia:: deferred *Routine Extremities Exam Extremities: Absent cyanosis, clubbing or edema *Routine Skin Exam Skin: Present warm; Absent rash *Routine Neurological Exam Neurological: Present alert and oriented X3 Assessment and Plan *Assessment and plan (1) Outlet dysfunction constipation: Status: Acute Category: Medical Code(s): K59.02 - Outlet dysfunction constipation (2) Lower abdominal pain: Status: Acute Category: Medical Code(s): R10.30 - Lower abdominal pain, unspecified (3) Intractable constipation: Status: Acute Category: Medical Code(s): K59.00 - Constipation, unspecified (4) Personal history of adenomatous and serrated colon polyps: Status: Acute Category: Medical Code(s): Z86.0101 - Personal history of adenomatous and serrated colon polyps Plan A/P: 1. Outlet dysfunction constipation, lower abdominal pain, intractable constipation and personal history of adenomatous polyps is the preprocedural diagnosis. The patient will be anesthetized/sedated using MAC sedation. The patient has been seen and examined. Cardiac and lung assessment prior to the examination is stable. Proceed with planned colonoscopy
[2024-07-15 09:02] VITALS: O2SAT 99
--- NOTE | 2024-07-15 09:06 | HMH.PROCNOTE ---
[facility] Procedure Note Date: 07/15/24 Time: 09:19 Procedure Note:: Colonoscopy Procedure Report: Colonoscopy with cold snare polypectomy Endoscopist: Coy Mcfarlane II, MD Referring physician: IVET Prakash Date of Procedure: July 15, 2024 Equipment: Olympus 190 variable stiffness pediatric colonoscope Sedation: MAC sedation Indication: Mrs. Holden is a 48-year-old female with chronic intractable constipation/outlet dysfunction constipation. The patient did have an attempted colonoscopy on 02/07/2024 but was poorly prepped and the procedure was aborted. She has long periods of time on the commode straining. She reports bloating and some lower abdominal discomfort. Her last colonoscopy was May 2019 at which time she did have a polyp (tubular adenoma) in the descending colon removed. The patient reports no rectal bleeding, weight loss or family history of colon cancer. The patient has had some improvement with the combination of MiraLAX plus Citrucel taken regularly. Procedure: Prior to the procedure, a history and physical exam was performed, and patient's medications and allergies were reviewed. The risks, benefits and alternatives of the sedation and procedure were discussed with the patient. All questions were answered and informed consent was obtained. The patient was brought to the procedure room. Patient identification and proposed procedure were verified by the physician and the nurse. The patient was placed in a left lateral decubitus position and the scope was passed under direct vision. Throughout the procedure, the patient's blood pressure, pulse, and oxygen saturations were monitored continuously. The colonoscopy was accomplished without difficulty. The patient tolerated the procedure well. Findings: On digital rectal examination there was normal rectal tone. There were no external hemorrhoids. The colonoscope was introduced through the anal canal to the rectum and advanced to the cecum. The ileocecal valve and appendiceal orifice were identified. The scope was advanced a short distance into the ileum which appeared grossly normal. The scope was then withdrawn into the colon. There were 2 polyps in the cecum (4 and 6 mm) that were both removed via cold snare polypectomy. The remaining cecum, ascending, transverse, descending, sigmoid and rectum were grossly normal. There were no mucosal abnormalities identified. Upon retroflexion within the rectum there were grade 1-2 internal hemorrhoids. The preparation was excellent throughout with [place] Preparation Score of 9. The cecal time was 12 minutes. Impression: 1. Cecal colonic polyps x 2 2. Grade 1-2 internal hemorrhoids Plan: I will follow-up the polyp histology and recommend repeat surveillance colonoscopy again in 7 years based upon pathology. I would continue the fiber bowel regimen (combined MiraLAX plus Citrucel) every morning and add Perdiem in the evenings. She does have outlet dysfunction constipation and would benefit from pelvic floor physical therapy.
[2024-07-15 09:22] VITALS: BP 95/54; PULSE 55; RESP 14; TEMP 36.6; O2SAT 97
[2024-07-15 09:32] VITALS: BP 91/55; PULSE 52; RESP 14; O2SAT 97
[2024-07-15 09:42] VITALS: BP 102/66; PULSE 64; RESP 17; O2SAT 97
[2024-07-15 09:52] VITALS: BP 116/74; PULSE 62; RESP 18; O2SAT 97
== END 2024-07-15 10:44 | disposition home or self-care (01) ==
PROVIDERS: PCP Nurse Practitioner Family; Visit Provider Internal Medicine Gastroenterology
PROC: 0DJD8ZZ Inspection of Lower Intestinal Tract, Via Natural or Artificial Opening Endoscopic (ICD-10-PCS; CPT 45378; principal; 2024-07-15 09:00)
DX: K63.5 Polyp of colon (principal); K64.8 Other hemorrhoids; K59.02 Outlet dysfunction constipation; R10.30 Lower abdominal pain, unspecified; K59.00 Constipation, unspecified; Z86.0101 Personal history of adenomatous and serrated colon polyps
CPT/HCPCS: 45385; J7120

== ENCOUNTER 2024-08-03 08:23 | Emergency (ER) | payer OTHER, SELFPAY ==
[2024-08-03 08:30] VITALS: BP 142/88; PULSE 59; O2SAT 97
[2024-08-03 08:35] LABS: Coronavirus 19, PCR Not Detected (NotDetected); Influenza A, PCR Not Detected (NotDetected); Influenza B, PCR Not Detected (NotDetected)
[2024-08-03 08:41] VITALS: BP 148/90; PULSE 68; RESP 16; TEMP 36.5; O2SAT 99; BMI 23.1
--- NOTE | 2024-08-03 08:46 | ED_ITS ---
Discharge Plan Disposition Patient Disposition: Home, Self-Care Chief Complaint: Upper Respiratory Infection Prescriptions Prescriptions: No Action albuterol sulfate 90 mcg/actuation HFA aerosol inhaler 2 puff inhalation Q4-6H PRN (Reason: shortness of breath or wheezing) Qty: 8.5 0RF Dulera 100-5 mcg/actuation HFA aerosol inhaler 2 puff inhalation BID 90 Days Qty: 13 2RF estradiol 2 mg tablet 2 mg PO DAILY Qty: 30 11RF ergocalciferol (vitamin D2) 1,250 mcg (50,000 unit) capsule 1,250 mcg PO WEEKLY Qty: 9 3RF lisinopril 10 mg tablet 10 mg PO DAILY Qty: 90 0RF rosuvastatin 20 mg tablet 20 mg PO DAILY Qty: 90 0RF Referrals Follow up/Referrals: Christian Bullock APRN [Primary Care Provider] - See instructions Activity Restrictions/Add. Instructions Additional Instructions/Restrictions: Call your family doctor to establish care for this visit to the emergency department and schedule follow-up within 48 hours to ensure improvement. If you have any worsening of your condition or any other concerning signs or symptoms, return to the emergency department or your primary care doctor for further evaluation. Clinical Impressions Clinical Impression: Acute viral syndrome Print Language Print Language: Yakut Discharge ED Provider: Trung Moraes General Adult HPI General Chief complaint: Upper Respiratory Infection Stated complaint: loss of taste/smell Time Seen by Provider: 08/03/24 08:25 History of Present Illness HPI narrative: Please note that above description of symptoms, in this electronic medical record under categorization of recalled from ER triage doctor by RN are reflective of an initial nursing assessment, however, is not reflective of my full history and physical exam that was personally taken and clarified. Consequentially, this preceding description of symptoms, which may include the patient's categorized chief complaint in the EMR, do not reflect my personal clinical impression, and the ultimate description of history of present illness and patient stated complaints should be deferred to this section of the note. Unless stated otherwise or congruent with this section of the note, additional signs, symptoms, or incongruence should be interpreted as inaccurate with my clinical impression. Related Data Previous Rx's ?Medication ?Instructions ?Recorded albuterol sulfate 90 mcg/actuation 2 puff inhalation Q4-6H PRN 12/25/23 aerosol inhaler shortness of breath or wheezing #8.5 grams estradiol 2 mg tablet 2 mg PO DAILY #30 tabs 05/07/24 mometasone-formoterol HFA 100 2 puff inhalation BID 90 days #13 06/16/24 mcg-5 mcg/actuation aerosol grams inhaler (Dulera) ergocalciferol (vitamin D2) 1,250 1,250 mcg PO WEEKLY #9 caps 07/01/24 mcg (50,000 unit) capsule lisinopril 10 mg tablet 10 mg PO DAILY BP #90 tabs 07/01/24 rosuvastatin 20 mg tablet 20 mg PO DAILY Cholesterol #90 tabs 07/01/24 Allergies Allergy/AdvReac Type Severity Reaction Status Date / Time Iodinated Contrast Media Allergy Intermediate I-HIVES Verified 08/03/24 08:49 (IODINATED CONTRAST MEDIA - ORAL AND) iodine (IODINE) Allergy Mild Unknown Verified 08/03/24 08:49 allergy reaction oxytocin (From Pitocin) Allergy Unknown Verified 08/03/24 08:49 allergy reaction povidone-iodine (From Allergy Hives Verified 08/03/24 08:49 Betadine) [facility] Disclaimer: The information contained in this section may have been updated after the patient was seen, as this information can be updated by other users. Medical History (Updated 08/03/24 @ 08:49 by Trung Moraes MD) Asthma History of asthma Family history of asthma Tobacco abuse counseling COPD mixed type Hyperlipidemia Hypertension History of chest pain H. pylori infection Surgical History Hx of colonoscopy History of throat surgery Hx of appendectomy Hx laparoscopic cholecystectomy Hx of section History of hysterectomy Family History Mother Cancer Breast, Lung Social History Smoking Status: Heavy tobacco smoker tobacco type: cigarettes packs per day: 2 second hand exposure: Yes alcohol intake: never substance use type: denies use current occupational status: unemployed Travel in the last 8 weeks: None household members: family housing: house current occupational exposures/hazards: No caffeine: Yes Have you lived/traveled outside US in past 30 days?: No Contact w/someone who lives/traveled outside US past 30 days?: No Exposure to someone with infectious disease in past 14 days?: No Do you have a fever (greater than 100.4 F or 38 C)?: No Have you tested positive for COVID-19: No Exposed to someone with COVID-19 in past 14 days?: No Do you have a sore throat?: No Do you have a cough?: No Do you have any weakness?: No Do you have any diarrhea?: No Are you experiencing any unusual bleeding?: No Do you have any muscle aches/pain?: No Do you have any abdominal pain?: No Are you experiencing loss of taste or smell?: Yes Other Medical History Have you received the Flu Vaccine for this season: No Have you received the Pneumonia Vaccine: Yes ROS Obtained: Yes All systems reviewed & no additional complaints except as documented Physical Exam General General appearance: alert Head Head exam: atraumatic and normocephalic Eye Eye exam: Present normal appearance, PERRL and EOMI Neck Neck exam: Present normal inspection, full ROM and trachea midline Respiratory Respiratory exam: Absent respiratory distress, wheezes, stridor, accessory muscle use or prolonged expiratory phase Cardiovascular Cardiovascular exam: Present other (Pulses equal symmetric in upper and lower extremities) Abdominal Exam Abdominal exam: Present soft; Absent distention, tenderness or pulsatile mass Extremities Exam Extremities exam: Absent edema Neurological Exam Neurological exam: Present alert, oriented X3 and CN II-XII intact; Absent motor sensory deficit Skin Skin exam: Present warm and dry; Absent diaphoresis or erythema Medical Decision Making Medical Records Medical records reviewed: Yes I reviewed the patient's medical records. Screening: Per USPSTF and CDC recommendations, given the prevalence of disease in our region, it is our hospital?s policy to screen for HIV and viral Hepatitis for all patients aged 18 and over and those with ongoing risk factors. Christiano Inquiry Pt receiving controlled substance: No Christiano was queried for this patient: No Vital Signs: 08/03/24 08:30 08/03/24 08:41 08/03/24 09:10 Temperature 97.7 F Temperature Source Oral Pulse Rate 59 L 63 Pulse Rate [Left] 68 Respiratory Rate 16 Blood Pressure 142/88 H 119/74 Blood Pressure [Right Arm] 148/90 H Blood Pressure Mean [Right Arm] 109 Blood Pressure Source [Right Arm] Automatic Cuff Blood Pressure Position [Right Arm] Sitting 02 Sat by Pulse Oximetry 97 99 97 Oxygen Delivery Method Room Air Room Air Room Air Lab Data Lab Results 08/03/24 08:30: SARS-CoV-2 (PCR) Not detected, Influenza A Untype (PCR) Not detected, Influenza Type B (PCR) Not detected Orders (Tests/Meds): ORDERS Category Date Time Status Rapid PCR Covid and Flu A/B Stat Lab 08/03/24 08:30 Completed Medical Decision Narrative: Clinically well-appearing 48-year-old female presenting with loss of taste and smell states that she has a daughter that works at [employer]. States multiple people at that place have COVID, daughter has been visiting with family, so she is concerned she may have COVID. No other symptoms on full review of systems. She does state that she has a cough is productive of yellow sputum, however she is currently smoking 2 packs/day and states this is normal for her. Nothing is changed about the cough and no other infectious signs or symptoms. History obtained with patient. I asked patient what her expectations were of today's emergency department visit, she states that she wanted to have COVID swab to see whether or not it was COVID. COVID swab to be performed. Because patient having no other signs or symptoms, no other treatment was deemed necessary. Lungs are clear, cardiac exam normal. Patient nontachypneic, normotensive, nontachycardic, oxygen 95 to 100% on room air and patient speaking full sentences, very clinically well. Swab obtained, on independent interpretation negative COVID and flu. Given patient pres entation, workup, history, this most likely represents acute viral syndrome. Because patient at baseline without signs or symptoms of clinical decompensation, deemed appropriate for discharge. Results were relayed to patient who voiced understanding and were agreeable to outpatient management and follow up. I discussed my clinical impression with patient and answered all questions. At this time, the evidence for any other entities in the differential is insufficient to warrant any further testing or ED observation. This was explained as well. Advisory was given that persistent or worsening symptoms require further evaluation. I confirmed the understanding of this discussion. Technical Business Systems Analyst disclaimer Much of this encounter note is an electronic community affairs director spoken language to printed text. Electronic community affairs director of the spoken language may permit errors. Although I have reviewed the note, some errors may still exist. Critical Care Critical Care Time Critical Care Time: No
[2024-08-03 09:10] VITALS: BP 119/74; PULSE 63; O2SAT 97
[2024-08-03 09:32] VITALS: BP 119/76; PULSE 62; RESP 18; TEMP 36.5; O2SAT 98
== END 2024-08-03 09:32 | disposition home or self-care (01) ==
PROVIDERS: Emergency Provider Emergency Medicine; PCP Nurse Practitioner Family
DX: B34.9 Viral infection, unspecified (principal); R43.8 Other disturbances of smell and taste; Z20.822 Contact with and (suspected) exposure to COVID-19; F17.210 Nicotine dependence, cigarettes, uncomplicated
CPT/HCPCS: 87636; 99283

== ENCOUNTER 2024-09-10 18:01 | Emergency (ER) | payer OTHER, SELFPAY ==
[2024-09-10 18:11] VITALS: BP 132/78; PULSE 70; RESP 20; TEMP 36.8; O2SAT 98; BMI 23.5
--- NOTE | 2024-09-10 19:13 | ED_ITS ---
<Statement entered by Heather Macdonald DO - 09/11/24 00:02> I was consulted by the CHELE, and we discussed the complexity of the problems being addressed. I approved the treatment and management plan for this patient's care in the emergency department, thus performing a substantive portion of the medical decision making. Heather Macdonald DO Discharge Plan Disposition Patient Disposition: Home, Self-Care Condition: Good Prescriptions Prescriptions: No Action albuterol sulfate 90 mcg/actuation HFA aerosol inhaler 2 puff inhalation Q4-6H PRN (Reason: shortness of breath or wheezing) Qty: 8.5 0RF Dulera 100-5 mcg/actuation HFA aerosol inhaler 2 puff inhalation BID 90 Days Qty: 13 2RF estradiol 2 mg tablet 2 mg PO DAILY Qty: 30 11RF ergocalciferol (vitamin D2) 1,250 mcg (50,000 unit) capsule 1,250 mcg PO WEEKLY Qty: 9 3RF lisinopril 10 mg tablet 10 mg PO DAILY Qty: 90 0RF rosuvastatin 20 mg tablet 20 mg PO DAILY Qty: 90 0RF Referrals Follow up/Referrals: Christian Bullock APRN [Primary Care Provider] - See instructions Activity Restrictions/Add. Instructions Additional Instructions/Restrictions: Please use the erythromycin ointment that I gave you would small ribbon in the lower eyelid twice a day. Please call my eye doctor here in [place] tomorrow for close follow-up. If you have any new or worsening signs or symptoms return to the ER as needed. Clinical Impressions Clinical Impression: Abrasion, corneal Qualifiers: Encounter type: initial encounter Laterality: left Qualified Code(s): S05.02XA - Injury of conjunctiva and corneal abrasion without foreign body, left eye, initial encounter Print Language Print Language: Armenian Discharge ED Provider: Heather Macdonald General Adult HPI General Chief complaint: Eye Problems Stated complaint: AO 09/10/24 1500 FB left eye Time Seen by Provider: 09/10/24 18:21 Mode of Arrival: Ambulatory Source of Information: Patient Description of Symptoms (Recalled from ER Triage Doc. by RN): pt was weedeating and soemthing flew into her left eye, its red and irritated and painful per patient History of Present Illness HPI narrative: Patient presents for evaluation of left eye injury. Patient was weed eating and felt something strike her left eye around 2:00 this afternoon. Patient has had excessive tearing and a foreign body sensation since. She denies loss of vision headache fever chills hemoptysis (no nausea vomiting diarrhea Related Data Previous Rx's ?Medication ?Instructions ?Recorded albuterol sulfate 90 mcg/actuation 2 puff inhalation Q4-6H PRN 12/25/23 aerosol inhaler shortness of breath or wheezing #8.5 grams estradiol 2 mg tablet 2 mg PO DAILY #30 tabs 05/07/24 mometasone-formoterol HFA 100 2 puff inhalation BID 90 days #13 06/16/24 mcg-5 mcg/actuation aerosol grams inhaler (Dulera) ergocalciferol (vitamin D2) 1,250 1,250 mcg PO WEEKLY #9 caps 07/01/24 mcg (50,000 unit) capsule lisinopril 10 mg tablet 10 mg PO DAILY BP #90 tabs 07/01/24 rosuvastatin 20 mg tablet 20 mg PO DAILY Cholesterol #90 tabs 07/01/24 Allergies Allergy/AdvReac Type Severity Reaction Status Date / Time Iodinated Contrast Media Allergy Intermediate I-HIVES Verified 08/03/24 08:49 (IODINATED CONTRAST MEDIA - ORAL AND) iodine (IODINE) Allergy Mild Unknown Verified 08/03/24 08:49 allergy reaction oxytocin (From Pitocin) Allergy Unknown Verified 08/03/24 08:49 allergy reaction povidone-iodine (From Allergy Hives Verified 08/03/24 08:49 Betadine) [facility] Disclaimer: The information contained in this section may have been updated after the patient was seen, as this information can be updated by other users. Medical History (Updated 09/10/24 @ 19:45 by DEEP Davis) Asthma History of asthma Family history of asthma Tobacco abuse counseling COPD mixed type Hyperlipidemia Hypertension History of chest pain H. pylori infection Surgical History Hx of colonoscopy History of throat surgery Hx of appendectomy Hx laparoscopic cholecystectomy Hx of section History of hysterectomy Family History Mother Cancer Breast, Lung Social History Smoking Status: Never smoker second hand exposure: Yes alcohol intake: never substance use type: denies use current occupational status: unemployed Travel in the last 8 weeks: None household members: family housing: house current occupational exposures/hazards: No caffeine: Yes Have you lived/traveled outside US in past 30 days?: No Contact w/someone who lives/traveled outside US past 30 days?: No Exposure to someone with infectious disease in past 14 days?: No Do you have a fever (greater than 100.4 F or 38 C)?: No Have you tested positive for COVID-19: No Exposed to someone with COVID-19 in past 14 days?: No Do you have a sore throat?: No Do you have a cough?: No Do you have any weakness?: No Do you have any diarrhea?: No Are you experiencing any unusual bleeding?: No Do you have any muscle aches/pain?: No Do you have any abdominal pain?: No Are you experiencing loss of taste or smell?: No Other Medical History Have you received the Flu Vaccine for this season: No Have you received the Pneumonia Vaccine: Yes ROS Obtained: Yes Systems reviewed as appropriate & no additional complaints except as documented Physical Exam General General appearance: alert and in no apparent distress Respiratory Respiratory exam: Present normal lung sounds bilaterally Cardiovascular Cardiovascular exam: Present regular rate Neurological Exam Neurological exam: Present alert and oriented X3 Medical Decision Making Medical Records Medical records reviewed: Yes I reviewed the patient's medical records. Screening: Per USPSTF and CDC recommendations, given the prevalence of disease in our region, it is our hospital?s policy to screen for HIV and viral Hepatitis for all patients aged 18 and over and those with ongoing risk factors. Christiano Inquiry Pt receiving controlled substance: No Vital Signs: 09/10/24 18:11 09/10/24 20:09 Temperature 98.2 F 97.9 F Temperature Source Oral Oral Pulse Rate 86 Pulse Rate [Left Radial] 70 Respiratory Rate 20 18 Blood Pressure 128/72 Blood Pressure [Right Arm] 132/78 Blood Pressure Mean [Right Arm] 96 Blood Pressure Source Automatic Cuff Blood Pressure Position Sitting 02 Sat by Pulse Oximetry 98 Oxygen Delivery Method Room Air Room Air Medical Decision Narrative: In summary patient is a 48-year-old female who presents to the emergency department for evaluation of left eye injury. Patient is hemodynamically stable upon arrival, afebrile. Physical exam is remarkable for very red left eye however pupils equal round reactive to light although patient is photophobic currently in the left eye, patient has full range of motion extraocular movements are intact without pain. There is no visible foreign body visible initially.. Differential diagnosis includes corneal abrasion versus corneal laceration versus corneal penetration or globe penetration etc. Initial workup will be conducted with exam under topical anesthesia. Initial interventions include topical anesthesia. Initial workup performed by me and after topical anesthetic drops placed in adequate anesthesia achieved eye was stained with foreseen. Examination under UV light reveals 2 small cortically abrasions at approximately 7 o'clock position of the cornea. There is no retained foreign body. Given this patient is appropriate for discharge with erythromycin ointment given to be used twice a day and follow-up with optometry in the a.m. for reevaluation. Patient advised to continue taking Tylenol alternating with Motrin for pain and symptom. Critical Care Critical Care Time Critical Care Time: No
[2024-09-10 20:09] VITALS: BP 128/72; PULSE 86; RESP 18; TEMP 36.6; O2SAT 100
== END 2024-09-10 20:10 | disposition home or self-care (01) ==
PROVIDERS: Emergency Provider Emergency Medicine; PCP Nurse Practitioner Family
DX: S05.02XA Injury of conjunctiva and corneal abrasion without foreign body, left eye, initial encounter (principal); W44.8XXA Other foreign body entering into or through a natural orifice, initial encounter
CPT/HCPCS: 99283

== ENCOUNTER 2024-11-17 07:33 | Outpatient (CLI) | payer OTHER, SELFPAY ==
--- NOTE | 2024-11-17 | CA_ITS ---
APPROVED REPORT Exam: Pharmacologic Technologist: Rain Bunch Ht: 5 ft 4 in Wt: 145 lbs BSA: 1.71 m2 HR: 46 bpm BP: 112/55 mmHg Stress Test Details Test: Lexiscan HR Resting HR: 46 bpm Max Heart Rate (APMHR): 171.571401 bpm Max HR Achieved: 85 bpm Target HR (85% APMHR): 145.475133 bpm % of APMHR: 49.71 Recovery HR: 65 bpm BP Resting BP: 112.0/55.0 mmHg Max BP: 115.0/65.0 mmHg Recovery BP: 107.0/65.0 mmHg ECG Resting ECG: Sinus bradycardia, 53. No ischemia or ectopy Stress ECG Conclusion Symptoms: Flushed, shortness of air, nausea Arrhythmias/Ectopy: > Lexiscan Electronically signed by : Mirta Gaines MD 11/17/2024 22:50:35
--- OUTSIDE RECORDS SUMMARY | 2024-11-17 07:36 | XMS_ITS | Clinical Summary ---
Author Organization Healthcare Address [address] [place] [address] Care Team Providers Care Maintenance Service Dispatcher Name Role Phone Kalyan Otero MD Primary Care Provider Social History Tobacco Use Types Packs/Day Years Used Date Smoking Tobacco: Never Assessed Comments Unknown Sex and Gender Information Value Date Recorded Sex Assigned at Not on file Legal Sex Female 6:57 PM EDT Gender Identity Not on file Sexual Orientation Not on file Plan of Treatment Health Maintenance Due Date Last Done Comments [facility]-Depression Screening 1975 [facility]-Infant/Child/Adol SDOH Screenings 1975 [facility]- SDOH Screenings 10/29/1993 [facility]-Adult SDOH Screenings 10/29/1993 [facility]-DTaP,Tdap,and Td Vaccine s (1 - Tdap) 10/29/1994 [facility]-Hepatitis B Vaccines (1 of 3 - 19+ 3-dose series) 10/29/1994 [facility]-Pap Smear 10/29/1996 [facility]-Cervical Cancer Screening 10/29/2005 [facility]-HPV/Cotest 10/29/2005 CT Colonography 10/29/2020 Colonoscopy 10/29/2020 FIT-DNA 10/29/2020 FIT 10/29/2020 FOBT 10/29/2020 Sigmoidoscopy 10/29/2020 [facility]-Colorectal Cancer Screening 10/29/2020 [id number] Vaccine ( season) 2024 [facility]-Influenza Vaccine (Seaso n Ended) 2025 04/27/2021, 04/27/2020 [facility]-Zoster Vaccines (1 of 2) 10/29/2025 HPV Vaccines Aged Out No longer eligi ble based on patient's age to complete this topic [facility]-HIB Vaccines Aged Out No longer e ligible based on patient's age to complete this topic [facility]-Hepatitis A Vaccines Aged Out No longer eligible based on patient's age to complete this topic [facility]-IPV Vaccines Aged Out No longer e ligible based on patient's age to complete this topic [facility]-Pneumococcal Vaccine: Pediatrics (0 to 5 Years) and At-Risk Patients (6 to 49 Years) Aged Out No longer eligible b ased on patient's age to complete this topic [facility]-Rotavirus Vaccines Aged Out No lo nger eligible based on patient's age to complete this topic Insurance AETNA [facility] MEDICAID Care Teams Maintenance Service Dispatcher Relationship Specialty Start Date End Date Kalyan Otero MD [address] [place] [address] PCP - General 10/06/20
--- NOTE | 2024-11-17 08:00 | NM_ITS ---
APPROVED REPORT Exam: Nuclear Stress Test Indication: Chest pain, SOB, Fatigue, HTN, High cholesterol, Tobacco use, Family history Patient Location: Outpatient Stress Tech: Rain Bunch ID Tech:Natalie Martinez, ARRT, RT (R)(N) Ht: 5 ft 4 in Wt: 145 lbs Bra Size: 36C HR: 45 bpm BP: 112/55 mmHg BSA: 1.71 m2 TID: 1.12 BMI: 24.8 History: Chest pain, SOB, Fatigue, HTN, High cholesterol, Tobacco use, Family history Procedure: Patient received 0.4 mg of intravenous Lexiscan, resting heart rate 45 bpm, resting blood pressure 112/55 mmHg, with Lexiscan maximum heart rate achieved was 87 bpm which is % of the maximum predicted heart rate and blood pressure was 119/62 mmHg. With Lexiscan, patient denied any complaint of chest pain. Cardiac Stress and Resting SPECT Images: Cardiac Stress and Resting SPECT images were obtained using technetium 99m Myoview 29.9 mCi stress and 10.53 mCi at rest. Resting and stress imaging in supine and prone positions demonstrate no evidence of fixed or reversible perfusion defects. Gated imaging demonstrates normal global and regional LV systolic function. LVEF is calculated at 52%. Conclusion: No evidence of fixed or reversible perfusion defects. Gated imaging demonstrates normal global and regional LV systolic function. LVEF is calculated at 52%. Electronically signed by : Mirta Gaines MD 11/17/2024 22:42:52
[2024-11-17] MEDS: REGADENOSON 0.4MG/5ML SYRINGE 0.4 MG IV (09:38)
[2024-11-17] MEDS: ISOTOPE MYOVIEW (PER STUDY) 1 DOSE IV (09:38)
[2024-11-17] MEDS: SODIUM CHLORIDE 0.9% 10ML SYR (RAD ONLY) 10 ML IV ×2 (09:38)
--- NOTE | 2024-11-17 10:15 | CA_ITS ---
APPROVED REPORT EXAM: Comprehensive 2D, Doppler, and color-flow Echocardiogram Wire Stitcher: Bernice Chen, RT(R) Ht: 5 ft 4 in Wt: 145lbs BSA: 1.71 BP: 124/82 mmHg Indications: chest pain, COPD, smoker 2D Dimensions LVEF (Irby's) 61.40 % F: 54 - 74 LV Volume 84.90 mL F: 46 - 106 LV Volume Index 49.6 mL/m2 F: 29 - 61 LA Volume 20.70 mL LA Volume Index 12.11 mL/m2 (M/F) 16-34 EF AP4 63.00 % EF AP2 60.3 % EF BP 61.4 % GL Strain -20.1 % M-Mode Dimensions RVDd 2.32 cm (0.9-2.6) LA Diam 3.05 cm (1.9-4.0) LVDd 5.25 cm (3.5-5.7) LVDs 3.61 cm (3.5-5.7) IVSd 0.46 cm (0.6-1.1) PWd 0.46 cm (0.6-1.1) EF (Teich) 58.60% FS 31.20% EDV (Teich) 132.40 mL ESV (Teich) 54.80 mL LV Diastology E Decel Time 260 (160-240 msec) E/A Ratio 1.8 Mitral Valve MV E Max José. 90.0 (40-130 cm/s) MV A Velocity 49.0 (40-130 cm/s) E/A Ratio 1.83 MV PHT 76.0 ms Tricuspid Valve TR P. Velocity 223.00 cm/s Left Ventricle The left ventricle is normal size. The left ventricular systolic function is normal. The left ventricular ejection fraction is within the normal range. There is normal left ventricular wall thickness. There is normal LV segmental wall motion. The left ventricular diastolic function is normal. LVEF is 55%. Right Ventricle The right ventricle is normal size. The right ventricular systolic function is normal. Atria Left atrium is mildly dilated. Right atrium is mildly dilated. There is no Doppler evidence of interatrial shunt. Aortic Valve The aortic valve opens well. There is no aortic valvular stenosis. No aortic regurgitation is present. Mitral Valve The mitral valve is normal in structure. No evidence of mitral valve stenosis. Trace mitral regurgitation. Tricuspid Valve Tricuspid valve is grossly normal in structure and function. Mild tricuspid regurgitation. RVSP is 20-25 mmHg. Pulmonic Valve The pulmonary valve is normal in structure. Trace pulmonic regurgitation. Great Vessels The aortic root is normal in size. IVC is normal in size and collapses >50% with inspiration. Pericardium There is no pericardial effusion. Other Information Study Quality: Fair Conclusion Normal biventricular systolic function. Mild biatrial dilation. Mild TR. Electronically signed by : Mirta Gaines MD 11/20/2024 15:09:47
== END 2024-11-17 23:59 | disposition home or self-care (01) ==
LOC: RAD 07:33
PROVIDERS: PCP Family Medicine; Visit Provider Family Medicine
DX: I07.1 Rheumatic tricuspid insufficiency (principal); I44.5 Left posterior fascicular block; F17.210 Nicotine dependence, cigarettes, uncomplicated; I20.9 Angina pectoris, unspecified; J44.9 Chronic obstructive pulmonary disease, unspecified; I42.9 Cardiomyopathy, unspecified; E78.00 Pure hypercholesterolemia, unspecified; E78.5 Hyperlipidemia, unspecified; R94.31 Abnormal electrocardiogram [ECG] [EKG]; R73.03 Prediabetes; Z84.89 Family history of other specified conditions; Z71.6 Tobacco abuse counseling
CPT/HCPCS: 78452; 93017; 93018; 93306; A9502; J2785

== ENCOUNTER 2024-11-29 10:09 | Outpatient (CLI) | payer OTHER, SELFPAY ==
[2024-11-29 10:44] LABS: Hematocrit 39.7 % (37.0-47.0); Hemoglobin 13.7 g/dL (12.2-16.2); Immature Granulocytes % 0.7 %; Mean Corpuscular HGB Conc 34.5 g/dL (31.8-35.4); Mean Corpuscular Hemoglobin 31.3 pg (27.0-31.2); Mean Corpuscular Volume 90.6 fl (81-99); Nucleated Red Blood Cells % 0 %; Platelet Count 236 K/mm3 (142-424); Red Blood Count 4.38 M/mm3 (4.20-5.40); Red Cell Distribution Width-SD 40.0 fL; White Blood Count 7.5 K/mm3 (4.8-10.8)
[2024-11-29 11:18] LABS: Alanine Aminotransferase 18 U/L (12-78); Albumin Level 4.1 g/dl (3.5-5.0); Alkaline Phosphatase 83 U/L (38-126); Anion Gap 12.8 mEq/L (5-15); Aspartate Amino Transferase 27 U/L (14-36); Bilirubin,Direct 0.2 mg/dl (0.0-0.4); Bilirubin,Indirect 0.6 mg/dL (0.0-0.9); Bilirubin,Total 0.8 mg/dl (0.2-1.3); Bilirubin,Unconjugated 0.6 mg/dL (0.0-1.1); Blood Urea Nitrogen 8 mg/dl (7-17); Calcium 9.6 mg/dl (8.4-10.2); Carbon Dioxide 27 mmol/L (22.0-30.0); Chloride 103 mmol/L (98-107); Cholesterol 181 mg/dl (140-200); Creatinine,Serum 0.70 mg/dl (0.52-1.04); Estimated Glomerular Filt Rate 89 ml/min (>60); GFR (African American) 108 ML/MIN (>60); Glucose 87 mg/dl (74-100); HDL Cholesterol 41 mg/dl (40-60); Magnesium 1.9 mg/dl (1.6-2.3); Potassium 3.8 mmoL/L (3.5-5.1); Sodium 139 mmol/L (136-145); Total Protein,Serum 6.7 g/dl (6.3-8.2); Triglycerides 288 mg/dl (30-150)
[2024-11-29 11:33] LABS: Free T4 (Free Thyroxine) 0.89 ng/dl (0.78-2.19)
[2024-11-29 11:48] LABS: Thyroid Stimulating Hormone 1.67 uIU/mL (0.465-4.68)
== END 2024-11-29 23:59 | disposition home or self-care (01) ==
LOC: LAB 10:10
PROVIDERS: PCP Nurse Practitioner Family; Visit Provider Nurse Practitioner
DX: R06.02 Shortness of breath (principal); R53.83 Other fatigue
CPT/HCPCS: 36415; 80048; 80061; 80076; 83735; 84439; 84443; 85025

== ENCOUNTER 2024-12-29 10:13 | Outpatient (CLI) | payer OTHER, SELFPAY ==
--- OUTSIDE RECORDS SUMMARY | 2024-12-29 10:15 | XMS_ITS | Clinical Summary ---
Author Organization Healthcare Address [address] [place] [address] Care Team Providers Care Anesthesiology Resident Name Role Phone Kalyan Otero MD Primary [...] 10/29/2020 Sigmoidoscopy 10/29/2020 [facility]-Colorectal Cancer Screening 10/29/2020 [id number] Vaccine ( season) 2024 [facility]-Influenza Vaccine (#1) 01/24/202504/27, 04/27/2020 [facility]-Zoster Vaccines (1 of 2) 10/29/2025 [...] age to complete this topic Insurance AETNA [facility] MEDICAID Care Teams Anesthesiology Resident Relationship Specialty Start Date End Date Kalyan Otero MD [address] [place] [address] PCP - General 10/06/20
--- NOTE | 2024-12-29 10:30 | FL_ITS ---
FINAL REPORT CLINICAL HISTORY: trouble swallowing 1.02 fluoro time 567.92 dap FINDINGS: ESOPHAGRAM HISTORY: Trouble swallowing, things getting stuck in throat. PROCEDURE: The patient ingested barium. Effervescent crystals were also administered. Spot and overhead films were obtained. 43 total images were performed. FINDINGS: There is a small sliding type hiatal hernia. There is no gastroesophageal reflux demonstrated. Peristalsis is normal. 13 mm barium tablet is delayed in the hiatal hernia, but does eventually pass with subsequent swallows. FLUOROSCOPY TIME: 1 minute 2 seconds Radiation dose in DAP: 567.92 uGym2 IMPRESSION: Small hiatal hernia. Barium tablet delayed in the hiatal hernia. Otherwise, unremarkable barium swallow. Reviewed, Interpreted and Dictated by Bernardino Aleman MD Transcribed by Berta Montiel PA-C Authenticated and [facility]
[2024-12-29] MEDS: E-Z-GASII EFFERVESCENT GRANULES;1PK 1 EACH PO (10:32)
[2024-12-29] MEDS: BARIUM SULFATE(LIQUID E-Z-PAQUE);355ML BOTTLE 355 ML PO (10:32)
[2024-12-29] MEDS: BARIUM SULFATE (E-Z-HD 340GM);135ML BOTTLE 135 ML PO (10:32)
== END 2024-12-29 23:59 | disposition home or self-care (01) ==
LOC: RAD 10:14
PROVIDERS: PCP Family Medicine; Visit Provider Family Medicine
DX: C32.0 Malignant neoplasm of glottis (principal); R13.13 Dysphagia, pharyngeal phase; K44.9 Diaphragmatic hernia without obstruction or gangrene
CPT/HCPCS: 74220

== ENCOUNTER 2025-01-20 10:52 | Day surgery (SDC) | payer OTHER, SELFPAY ==
[2025-01-18 14:34] VITALS: BMI 24.9
--- NOTE | 2025-01-19 15:48 | P.HP_ITS ---
History of Present Illness *Admission Date: 01/20/25 *History of present illness: Mrs. Holden is a 49-year-old female who is here for diagnostic EGD secondary to dysphagia, choking and history of vocal cord cancer. The laryngeal cancer was diagnosed 5 years ago and she has had trouble swallowing since then. The examination is deemed medically necessary for diagnostic EGD. The patient has been seen, interviewed and examined prior to the procedure by both myself and the anesthesia provider. [facility] Disclaimer: The information contained in this section may have been updated after the patient was seen, as this information can be updated by other users. Medical History Outlet dysfunction constipation Dysphagia Headache Bursitis Bronchitis Acute exacerbation of chronic obstructive airways disease Acute bronchitis Lower abdominal pain Intractable constipation Personal history of adenomatous and serrated colon polyps Acute viral syndrome Abrasion, corneal Asthma History of asthma Family history of asthma Tobacco abuse counseling COPD mixed type Hyperlipidemia Hypertension History of chest pain H. pylori infection Surgical History Hx of colonoscopy History of throat surgery Hx of appendectomy Hx laparoscopic cholecystectomy Hx of section History of hysterectomy Family History Mother Cancer Breast, Lung Social History Smoking Status: Current every day smoker tobacco type: cigarettes packs per day: 2 second hand exposure: Yes alcohol intake: never substance use type: denies use current occupational status: unemployed Travel in the last 8 weeks?: None household members: family housing: house current occupational exposures/hazards: No caffeine: Yes Have you lived/traveled outside US in past 30 days?: No Contact w/someone who lives/traveled outside US past 30 days?: No Exposure to someone with infectious disease in past 14 days?: No Do you have a fever (greater than 100.4 F or 38 C)?: No Have you tested positive for COVID-19?: No Exposed to someone with COVID-19 in past 14 days?: No Do you have a sore throat?: No Do you have a cough?: No Do you have any weakness?: No Do you have any diarrhea?: No Are you experiencing any unusual bleeding?: No Do you have any muscle aches/pain?: No Do you have any abdominal pain?: No Are you experiencing loss of taste or smell?: No Other Medical History Have you received the Flu Vaccine for this season: No Have you received the Pneumonia Vaccine: Yes Review of Systems Review of Systems Review of systems (narrative): Negative *Cardiovascular Comments: Negative *Gastrointestinal Comments: Negative *Genitourinary Comments: Negative *Musculoskeletal Comments: Negative *Neurologic Comments: Negative Meds Home Medications and Allergies Home Medications ?Medication ?Instructions ?Recorded ?Confirmed ?Type ergocalciferol (vitamin D2) 1,250 1,250 mcg PO WEEKLY #9 caps 07/01/24 01/20/25 Rx mcg (50,000 unit) capsule albuterol sulfate 90 mcg/actuation 2 puff inhalation Q 4-6H PRN 10/14/24 01/20/25 Rx aerosol inhaler shortness of breath or wheez ing #8.5 grams mometasone-formoterol HFA 200 2 puff inhalation BID 90 days #13 10/14/24 01/20/25 Rx mcg-5 mcg/actuation aerosol grams inhaler (Dulera) montelukast 10 mg tablet 10 mg PO DAILY #90 tabs 09/2401/20/25 Rx (Singulair) lisinopril 10 mg tablet 10 mg PO DAILY BP #90 tabs 0 11/04/24 01/20/25 Rx rosuvastatin 20 mg tablet 20 mg PO DAILY Cholesterol # 90 tabs 11/04/24 01/20/25 Rx estradiol 2 mg tablet 2 mg PO DAILY #30 tabs 01/1701/20/25 Rx New Prescriptions to Start Prescriptions: Allergies Allergy/AdvReac Type Severity Reaction Status Date / Time Iodinated Contrast Media Allergy Intermediate I-HIVES Verified 01/20/25 12:03 (IODINATED CONTRAST MEDIA - ORAL AND) iodine (IODINE) Allergy Mild Unknown Verified 01/20/25 12:03 allergy reaction oxytocin (From Pitocin) Allergy Unknown Verified 01/20/25 12:03 allergy reaction povidone-iodine (From Allergy Hives Verified 01/20/25 12:03 Betadine) Exam Data for Last 24 hours I & O for Last 24 hours: Intake & Output 01/16/25 01/17/25 01/18/25 01/19/25 23:59 23:59 23:59 23:59 Weight 145 lb *Routine HEENT Exam Head: Present normocephalic Eye: Present EOMI and PERRL ENT: Present mucous membranes moist *Routine Neck Exam Neck: Present supple *Routine Respiratory Exam Respiratory: Present CTA bilaterally *Routine Cardiovascular Exam Cardiovascular: Present RRR *Routine Abdominal Exam Abdominal: Present soft and normoactive bowel sounds; Absent tenderness *Routine Rectal Exam Rectal:: deferred *Routine Genitalia Exam Genitalia:: deferred *Routine Extremities Exam Extremities: Absent cyanosis, clubbing or edema *Routine Skin Exam Skin: Present warm; Absent rash *Routine Neurological Exam Neurological: Present alert and oriented X3 Assessment and Plan *Assessment and plan (1) Choking: Status: Acute Category: Medical Code(s): T17.308A - Unspecified foreign body in larynx causing other injury, initial encounter (2) Regurgitation of food: Status: Acute Category: Medical Code(s): R11.10 - Vomiting, unspecified (3) Dysphagia: Status: Acute Category: Medical Code(s): R13.10 - Dysphagia, unspecified (4) History of laryngeal cancer: Status: Acute Category: Medical Code(s): Z85.21 - Personal history of malignant neoplasm of larynx Plan A/P: 1. Dysphagia, choking and regurgitation of food with history of laryngeal cancer is the preprocedural diagnosis. The patient will be anesthetized/sedated using MAC sedation. The patient has been seen and examined. Cardiac and lung assessment prior to the examination is stable. Proceed with planned diagnostic EGD.
[2025-01-20 12:06] VITALS: BP 135/74; PULSE 51; RESP 18; TEMP 36.3; O2SAT 97
[2025-01-20] MEDS: LACTATED RINGERS 1000ML 1,000 ML 50 ML IV (12:19)
--- NOTE | 2025-01-20 12:46 | P.PNANES_ITS ---
[facility] Disclaimer: The information contained in this section may have been updated after the patient was seen, as this information can be updated by other users. Medical History Outlet dysfunction constipation Dysphagia Headache Bursitis Bronchitis Acute exacerbation of chronic obstructive airways disease Acute bronchitis Lower abdominal pain Intractable constipation Personal history of adenomatous and serrated colon polyps Acute viral syndrome Abrasion, corneal Asthma History of asthma Family history of asthma Tobacco abuse counseling COPD mixed type Hyperlipidemia Hypertension History of chest pain H. pylori infection Surgical History Hx of colonoscopy History of throat surgery Hx of appendectomy Hx laparoscopic cholecystectomy Hx of section History of hysterectomy Family History Mother Cancer Breast, Lung Social History Smoking Status: Current every day smoker tobacco type: cigarettes packs per day: 2 second hand exposure: Yes alcohol intake: never substance use type: denies use current occupational status: unemployed Travel in the last 8 weeks?: None household members: family housing: house current occupational exposures/hazards: No caffeine: Yes Have you lived/traveled outside US in past 30 days?: No Contact w/someone who lives/traveled outside US past 30 days?: No Exposure to someone with infectious disease in past 14 days?: No Do you have a fever (greater than 100.4 F or 38 C)?: No Have you tested positive for COVID-19?: No Exposed to someone with COVID-19 in past 14 days?: No Do you have a sore throat?: No Do you have a cough?: No Do you have any weakness?: No Do you have any diarrhea?: No Are you experiencing any unusual bleeding?: No Do you have any muscle aches/pain?: No Do you have any abdominal pain?: No Are you experiencing loss of taste or smell?: No [facility] Anesthesia Checklist Patient Identification Patient Identification: Arm Band Structural Data Admitted From: Home Planned Operative Procedure/s: EGD Consent for Planned Operative Procedure(s) Verified: Yes Verified Documents: Surgical Consent and History and Physical NPO Status Verified Time NPO: 00:00 Additional verifications Anesthesia Reactions: Yes (hard to wake up) Hx Blood Transfusions: No Airway Assessment Mallampati Score:: Class II C-Spine Mobility Assessed: Yes TMJ Mobility Assessed: Yes Dentition: Edentulous Neurological Assessment Level of Consciousness: Awake, Alert and Appropriate Anesthesia Plan Anesthesia Risk discussed: Yes Anesthesia Plan: Verified ASA Class: II Anesthesia Type: MAC
--- NOTE | 2025-01-20 13:27 | P.PCN_ITS ---
[facility] Procedure Note Date: 01/20/25 Time: 13:33 Procedure Note:: Upper Endoscopy Procedure Report: Esophagogastroduodenoscopy with cold biopsies and TTS balloon dilation Endoscopost: Coy Mcfarlane II, MD Referring Physician: IVET Jean Baptiste Date of Procedure: January 20, 2025 Equipment: Olympus GIF-1100 standard upper endoscope Sedation: MAC sedation Indications: Mrs. Holden is a 49-year-old female who is here for diagnostic EGD secondary to dysphagia, choking and history of vocal cord cancer. The laryngeal cancer was diagnosed 5 years ago and she has had trouble swallowing since then. The patient has had outlet dysfunction constipation and mixed IBS. She was referred to pelvic floor physical therapy but insurance would not cover. She does have postprandial bloating. She has been getting choked on foods, fluids and pills with food regurgitation at times. This has been persistent. She reports no heartburn, reflux, nausea or vomiting. Procedure: Prior to the procedure, a history and physical exam was performed, and patient's medications and allergies were reviewed. The risks, benefits and alternatives of the sedation and procedure were discussed with the patient. All questions were answered and informed consent was obtained. The patient was brought to the procedure room. Patient identification and proposed procedure were verified by the physician and the nurse. The patient was placed in a left lateral decubitus position and the scope was passed under direct vision. Throughout the procedure, the patient's blood pressure, pulse, and oxygen saturations were monitored continuously. The upper GI endoscopy was accomplished without difficulty. The patient tolerated the procedure well. Findings: The scope was passed directly into the upper esophagus and advanced to the third portion of the duodenum. A cold biopsy was taken from the second p ortion of the duodenum for the disaccharidase assay. The post bulbar duodenum and duodenal bulb were normal with normal mucosa and conniventes. The scope was withdrawn through a normal duodenal bulb and pylorus into the stomach. There was mild antral gastropathy and cold biopsies were obtained. The body and fundus of the stomach were normal. Upon retroflexion there was no hiatal hernia. The scope was then withdrawn into the esophagus. There was no evidence of reflux esophagitis or Snider's. There were no rings, strictures, corrugation, webs or inlet patch. There were tertiary contractions and evidence of mild esophageal dysmotility. The entire esophagus was dilated to 60 Portuguese/20 mm with a TTS hydrostatic balloon. There was mild resistance at the cricopharyngeus. The remainder of the esophageal mucosa was normal. Impression: 1. Cricopharyngeal spasm status post dilation to 20 mm 2. Nonerosive GERD with mild esophageal dysmotility 3. Mild antral gastropathy Plan: I will follow-up the biopsies and disaccharidase assay. The patient may have some pharyngeal dysphagia because of her prior vocal cord cancer.
[2025-01-20 13:36] VITALS: BP 104/66; PULSE 58; RESP 16; TEMP 36.1; O2SAT 95
[2025-01-20 13:46] VITALS: BP 110/67; PULSE 51; RESP 16; TEMP 36.1; O2SAT 100
[2025-01-20 13:56] VITALS: BP 124/80; PULSE 51; RESP 17; TEMP 36.1; O2SAT 98
[2025-01-20 14:06] VITALS: BP 126/81; PULSE 50; RESP 18; TEMP 36.1; O2SAT 99
[2025-01-26 16:33] LABS: Interpretation Notes (.); Lactase 7.72 (>/= 14.0); Maltase 149.62 (>/= 110.0); Palatinase 10.38 (>/= 8.5); Reference Notes (.); Sucrase 38.61 (>/= 25.0)
== END 2025-01-20 14:10 | disposition home or self-care (01) ==
PROVIDERS: PCP Nurse Practitioner Family; Visit Provider Internal Medicine Gastroenterology
PROC: 0DJ08ZZ Inspection of Upper Intestinal Tract, Via Natural or Artificial Opening Endoscopic (ICD-10-PCS; CPT 43239; principal; 2025-01-20 13:00)
DX: K29.80 Duodenitis without bleeding (principal); K22.4 Dyskinesia of esophagus; K21.9 Gastro-esophageal reflux disease without esophagitis; K31.9 Disease of stomach and duodenum, unspecified; J44.89 Other specified chronic obstructive pulmonary disease; E78.5 Hyperlipidemia, unspecified; I10 Essential (primary) hypertension; K58.2 Mixed irritable bowel syndrome; F17.210 Nicotine dependence, cigarettes, uncomplicated; Z88.8 Allergy status to other drugs, medicaments and biological substances; Z91.041 Radiographic dye allergy status; Z79.899 Other long term (current) drug therapy
CPT/HCPCS: 43239; 43249; 82657; C1726; J2003; J2704; J7120

== ENCOUNTER 2025-03-10 17:39 | Outpatient (CLI) | payer OTHER, SELFPAY ==
--- NOTE | 2025-03-10 17:40 | XR_ITS ---
PROCEDURE INFORMATION: Exam: XR Right Knee Exam date and time: 03/10/2025 5:35 PM Age: 49 years old Clinical indication: Pain; Knee; Right; Additional info: Knee pain TECHNIQUE: Imaging protocol: Radiologic exam of the right knee. Views: 3 views. COMPARISON: CR XR KNEE RT 3V 03/10/2025 5:35 PM FINDINGS: Bones/joints: No acute fracture or dislocation. Small patellar enthesophytes. Soft tissues: Normal. IMPRESSION: No acute fracture or dislocation.
--- NOTE | 2025-03-10 17:40 | XR_ITS ---
PROCEDURE INFORMATION: Exam: XR Right Tibia and Fibula Exam date and time: 03/10/2025 5:36 PM Age: 49 years old Clinical indication: Injury or trauma; Fall; Blunt trauma; Knee; Right; Additional info: Fall, knee pain TECHNIQUE: Imaging protocol: Radiologic exam of the right tibia and fibula. Views: 2 views. COMPARISON: CR Knee R 03/10/2025 5:35 PM FINDINGS: Bones/joints: No acute fracture or dislocation. Soft tissues: Normal. IMPRESSION: No acute fracture or dislocation.
--- OUTSIDE RECORDS SUMMARY | 2025-03-10 17:42 | XMS_ITS | Clinical Summary ---
Author Organization Healthcare Address [address] [place] [address] Care Team Providers Care Computer Engineering Professor Name Role Phone Kalyan Otero MD Primary Care Provider [phone] Social History Tobacco Use Types Packs/Day Years Used Date Smoking Tobacco: Never Assessed Comments Unknown Sex and Gender Information Value Date Recorded Sex Assigned at Not on file Legal Sex Female 6:57 PM EDT Gender Identity Not on file Sexual Orientation Not on file Plan of Treatment Health Maintenance Due Date Last Done Comments [facility]-Depression Screening 1975 [facility]-/Child/Adol SDOH Screenings 1975 [facility]- SDOH Screenings 10/29/1993 [facility]-Adult SDOH Screenings 10/29/1993 [facility]-DTaP,Tdap,and Td Vaccine s (1 - Tdap) 10/29/1994 [facility]-Hepatitis B Vaccines (1 of 3 - 19+ 3-dose series) 10/29/1994 [facility]-Pap Smear 10/29/1996 [facility]-Cervical Cancer Screening 10/29/2005 [facility]-HPV/Cotest 10/29/2005 CT Colonography 10/29/2020 Colonoscopy 10/29/2020 FIT-DNA 10/29/2020 FIT 10/29/2020 FOBT 10/29/2020 Sigmoidoscopy 10/29/2020 [facility]-Colorectal Cancer Screening 10/29/2020 [id number] Vaccine ( season) 2025 [facility]-Influenza Vaccine (#1) 01/24/202504/27, 04/27/2020 [facility]-Zoster Vaccines [...] age to complete this topic Insurance [employer] [facility] MEDICAID Care Teams Computer Engineering Professor Relationship Specialty Start Date End Date Kalyan Otero MD [address] [place] [address] PCP - General 10/06/20
== END 2025-03-10 23:59 | disposition home or self-care (01) ==
LOC: RAD 17:40
PROVIDERS: PCP Nurse Practitioner Family; Visit Provider Nurse Practitioner
DX: M25.561 Pain in right knee (principal); W19.XXXA Unspecified fall, initial encounter
CPT/HCPCS: 73562; 73590

== ENCOUNTER 2025-04-22 10:07 | Outpatient (CLI) | payer OTHER, SELFPAY ==
--- OUTSIDE RECORDS SUMMARY | 2025-04-22 10:10 | XMS_ITS ---
Author Organization Unknown ENCOUNTERS Encounter Performer Location Date Diagnosis Diagnosis Status [facility] [address] [place] [address] [id number] [place] [facility] [address] [place] [address] [id number] Emergency [facility] [address] [place] [address] [id number] [place] Pre Admit [facility] [address] [place] [address] [id number] Pre Admit [facility] [address] [place] [address] [id number] Emergency [facility] [address] [place] [address] [id number] [place] Emergency [facility] [address] [place] [address] [id number] [place] Pre Admit [facility] [address] [place] [address] [id number] Emergency [facility] [address] [place] [address] [id number] [place] [facility] [address] [place] [address] [id number] [place] Emergency Osei [facility] [address] [place] [address] [id number] [place] Emergency Angela Chopra [facility] [address] [place] [address] [id number] [place] Emergency [facility] [address] [place] [address] [id number] [place] Emergency Elmira Lola [facility] [address] [place] [address] [id number] [place] *Note: Encounters from your own facility or health system may be excluded. Allergies, Adverse Reactions, Alerts Allergen Type Severity Identification Date povidone-iodine drug allergy 0 20220211 Iodinated Contrast Media drug allergy 3 Iodinated Contrast Media - Oral and drug allergy 3 [id number] oxytocin drug allergy 0 [id number] iodine drug allergy 2 [id number] Medications Name Date Quantity Days Supplied GPI Number
--- OUTSIDE RECORDS SUMMARY | 2025-04-22 10:10 | XMS_ITS | Clinical Summary ---
Author Organization Healthcare Address [address] [place] [address] Care Team Providers Care Covering Machine Operator Helper Name Role Phone Kalyan Otero MD Primary Care Provider [phone] Social History Tobacco Use Types Packs/Day Years [...] 10/29/2020 Sigmoidoscopy 10/29/2020 [facility]-Colorectal Cancer Screening 10/29/2020 [id number] Vaccine (2024- season) 2025 [facility]-Influenza Vaccine (#1) 01/24/202504/27, 04/27/2020 [...] age to complete this topic Insurance [employer] [facility] MEDICAID Care Teams Covering Machine Operator Helper Relationship Specialty Start Date End Date Kalyan Otero MD [address] [place] [address] PCP - General 10/06/20
--- NOTE | 2025-04-22 10:30 | MM_ITS ---
PROCEDURE INFORMATION: Exam: MG Bilateral Screening 3D Mammography Exam date and time: 04/22/2025 10:16 AM Age: 49 years old Clinical indication: Screening examination. TECHNIQUE: Imaging protocol: Bilateral Screening tomosynthesis and 2D mammography including computer-aided detection (CAD) when performed. COMPARISON: No relevant prior studies available. FINDINGS: MAMMOGRAPHY: Breast composition: There are scattered areas of fibroglandular density. Mass: None. Architectural distortion: None. Calcifications: No suspicious calcifications. Asymmetric density: None. Skin thickening: None. Axillary adenopathy: None. IMPRESSION: No mammographic evidence of malignancy. Annual screening is recommended unless otherwise clinically indicated. ASSESSMENT: BI-RADS Category 1: Negative.
== END 2025-04-22 23:59 | disposition home or self-care (01) ==
LOC: RAD 10:08
PROVIDERS: PCP Nurse Practitioner Family; Visit Provider Obstetrics & Gynecology
DX: Z12.31 Encounter for screening mammogram for malignant neoplasm of breast (principal); R92.323 Mammographic fibroglandular density, bilateral breasts
CPT/HCPCS: 77063; 77067